=== PATIENT | female | born 1985 | race Two or more races ===

== ENCOUNTER → 2024-09-03 | Outpatient (CLI) | payer BC, SELFPAY ==
[2024-09-03 17:01] LABS: Collection Type, Urine Clean Catch
[2024-09-03 17:50] LABS: Bilirubin,Urine Negative (Negative); Blood,Urine Negative (Negative); Color,Urine Yellow (Lt Yel-Yel); Glucose, Urine Negative (Negative); Ketones,Urine Negative (Negative); Leukocyte Esterase,Urine Positive (Negative); Nitrite,Urine Negative (Negative); PH,Urine 8.5 (5.0-7.0); Protein,Urine Trace (Neg - Trace); RBC,Urine 10 /hpf (0-3); Specific Gravity,Urine 1.025 (1.001-1.035); Squamous Epithelial Cell,Urine 9 /hpf (0-5); WBC,Urine 42 /hpf (0-5)
[2024-09-03 17:53] LABS: Clarity,Urine Hazy (Clear/Hazy); Culture Indicated,Urine Yes
== END | disposition home or self-care (01) ==
LOC: SLDO 16:50
PROVIDERS: PCP Internal Medicine; Referring Provider Internal Medicine; Visit Provider Internal Medicine
DX: N39.0 Urinary tract infection, site not specified (principal)
CPT/HCPCS: 81001; 87086

== ENCOUNTER → 2024-09-09 | Outpatient (CLI) | payer BC, SELFPAY ==
[2024-09-10 09:47] LABS: BVAG Candida Negative (Negative); Bacterial Vaginosis Markers Positive (Negative); Candida glabrata Negative (Negative); Candida krusei PCR Negative (Negative); Trichomonas Negative (Negative)
== END | disposition home or self-care (01) ==
LOC: SLDO 16:49
PROVIDERS: Referring Provider Specialist; Visit Provider Specialist
DX: B37.89 Other sites of candidiasis (principal); N76.0 Acute vaginitis; A59.01 Trichomonal vulvovaginitis
CPT/HCPCS: 81514

== ENCOUNTER → 2024-11-04 | Outpatient (CLI) | payer BC, SELFPAY ==
--- NOTE | 2024-11-04 10:34 | XR_ITS ---
Examination: Complete OB ultrasound, less than 14 weeks, transabdominal Date and time of exam: November 04, 2024 10:58 AM Indications: Advanced maternal age Technique: Obstetrical ultrasound images less than 14 weeks performed via transabdominal imaging Findings: A normal shaped single intrauterine gestation is present in the uterus. pole 1.0 cm corresponds to 7 week 0 day gestational age Cardiac motion 120 bpm Adjacent subchorionic hemorrhage 18 x 15 x 16 mm Ultrasonographic survey of visible structures unremarkable. Amniotic fluid volume appears appropriate for this estimated gestational age. Right ovary 2.7 cm arterial flow 17 mm follicle Left ovary 2.0 cm arterial flow Impression: Viable intrauterine gestation 7 weeks 0 days.
[2024-11-04 13:38] LABS: Beta HCG,Quantitative 63298 mIU/mL (<5.0)
== END | disposition home or self-care (01) ==
PROVIDERS: PCP Family Medicine; Referring Provider Registered Nurse; Visit Provider Registered Nurse
DX: Z34.01 Encounter for supervision of normal first pregnancy, first trimester (principal)
CPT/HCPCS: 36415; 76801; 84702

== ENCOUNTER 2024-12-03 13:20 | Outpatient (AMB) | payer BC, SELFPAY ==
--- NOTE | 2024-12-03 13:31 | OBCLNT_ITS ---
Vital Signs 12/03/24 14:07 Height 1.6 m Height Method Stated Weight 63.049 kg Weight Measurement Method Standing Scale BMI 24.6 BP 118/79 Blood Pressure Source Automatic Cuff Blood Pressure Location Left Upper Arm Position Sitting Respiration 16 Pulse 66 Pulse Source Monitor Temp 97.8 F Temp Source Temporal Artery Scan Pulse Oximetry (%) 98 Oxygen Delivery Method Room Air Allergies/Home Meds Allergies & Medications Allergies latex Allergy (Mild, Verified 12/03/24 14:07) Rash acetaminophen (From Vicodin) Adverse Reaction (Intermediate, Verified 12/03/24 14:07) Nausea amoxicillin (From Augmentin) Adverse Reaction (Intermediate, Verified 12/03/24 14:07) Nausea clavulanic acid (From Augmentin) Adverse Reaction (Intermediate, Verified 12/03/24 14:07) Nausea hydrocodone (From Vicodin) Adverse Reaction (Intermediate, Verified 12/03/24 14:07) Nausea Intake Visit Data Collection New Patient or Established: Established Patient (seen at [facility] within 3 years) Reason for Visit:: OB Initial Do You Feel Safe at Home: Yes Authorities Contacted: N/A PCP or OBGYN visit in last 3 months: No Last menstrual period: 09/08/24 Pain Present Currently: No Pain Scale Used: [place]-Mirza/Numerical Pain scale:: 0 Smoking Status Smoking Status: Never smoker Questionnaires Covid-19 Vaccine Questionnaire Has patient been vacinated for Covid-19 Have you been vacinated for Covid-19: Yes PHQ-9 PHQ-2 Over the last 2 weeks, how often have you been bothered by any of the following problems? 1. Little interest or pleasure in doing things: not at all 2. Feeling down, depressed, or hopeless: not at all Total score: 0 PHQ-9 3. Trouble falling or staying asleep, or sleeping too much: Not at all 4. Feeling tired or having little energy: Not at all 5. Poor appetite or overeating: Not at all 6. Feeling bad about yourself - or that you are a failure or have let yourself or your family down: Not at all 7. Trouble concentrating on things, such as reading the newspaper or watching television: Not at all 8. Moving or speaking so slowly that other people could have noticed? - Or the opposite - being so fidgety or restless that you have been moving around a lot more than usual: not at all 9. Thoughts that you would be better off or of hurting yourself in some way: Not at all Total score: 0 If you checked off any problems, how difficult have these problems made it for you to do your work, take care of things at home, or get along with other people?: not difficult at all Source: Developed by Drs. Oliver Arce, Jo Ann Arriaga, Elijah Johnson and colleagues, with an educational johny from [employer]. 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 Jeffery CANDY, a CO, who has 3 kids Tobacco History Smoking Status: Never smoker Alcohol History Alcohol Intake: Former Domestic Abuse History Do You Feel Safe at Home: Yes Past Medical History Past Medical History Have you ever been diagnosed with any of the following: Neurological Problems Migraine: No Cardiology Problems Heart Murmur: No Hypercholesterolemia: No Cellulitis: Yes (NAIL L THUMB AVULSION WITH NEOSPORIN IN MAY) Hypertension: No Respiratory Problems Asthma: No Genital/Urinary Problems Renal Disease: No Reproductive Problems Breast Cancer: No Endometriosis: No (edometrial polyps) Fibroids: No Genital Herpes: No Gonorrhea: No Pelvic Inflammatory Disease: No Polycystic Ovarian Syndrome: Yes Previous Pregnancies: Yes ( x 2) Musculoskeletal Problems Arthritis: No Rheumatoid Arthritis: No Scoliosis: Yes Fractures: Yes (left foot 2nd toe) Endocrine Problems Diabetes Mellitus Type 2: No Hyperthyroidism: No Hypothyroidism: No Blood Problems Anemia: No Clotting Problems: No Psychologic Problems Depression: No Anxiety: No Depression: Yes Other Problems Hospitalization: Yes (For deliveries) Autoimmune Disease: No Cosmetic Surgery: No Blood Transfusions: No Chicken Pox: Yes Surgical History Cholecystectomy: No Additional Surgical History: Hysteroscopy D&C with removal of polyps by Dr Sharma. History of vaginal delivery x 2 in the past History of Present Illness HPI Narrative The patient is a 39-year-old -0-0-2 presents for a new OB appointment. She is single. She is present with the father of the baby. His name is Júnior. 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 He has 3 children and she has 2. Patient would like a light duty for work and a note to not be around clients. She feels tired no bleeding. She states she has to go upstairs and restart respond quickly to emergencies. OB Ultrasound Indication Indication: Size, dates, viability OB Ultrasound Ultrasound technique: transvaginal Gestational sac assessment: Presence, location, size, shape: Single live intrauterine with crown-rump length of 4.95 cm corresponding to 11 weeks 5 days. Embryo/ Assessment 1: Cardiac activity confirmation: Yes [place]-rump length (cm): 4.95 OB Initial Visit Menstrual History Menstrual reliability: definite Flow: normal Menstrual regularity: regular Monthly: Yes Age at menarche: 9 On control pills at conception: Yes Associated symptoms (LMP): Reports fatigue and bloating OB History : 3 Para: 2 Hx Total # of Abortions (Spontaneous & Elective): 0 # of Living Children: 2 Delivery History 1st : Child's name: Amy date: 02/28/16 sex: female Gestational age at delivery (weeks): 39 Delivery type: vaginal weight (lbs): 3175.147 g Delivery complications: Patient had an epidural. No complications. She delivered here w Dr Sharma History of depression before or after : No 2nd : Child's name: Hank date: 04/29/17 sex: male Gestational age at delivery (weeks): 39 Delivery type: vaginal weight (lbs): 3175.147 g Delivery complications: None. Too fast for epidural. Dr Sharma. History of depression before or after : No Infection History & Risk Evaluation History of STDs: none Genetic Screening & History Genetic Screening/Teratology Counseling - Includes patient, baby's father, or anyone in either family with: 1. Patient's age 35 years or older as of estimated date of delivery: Yes 2. Thalassemia (Sami, Georgian, Mediterranean, or Background); MCV less than 80: No 3. Neural Tube Defect (Meningomyelocele, Spina Bifida, or Anencephaly): No 4. Congenital Heart Defect: No 5. Down Syndrome: No 6. Saad-Sachs (Ashkenazi Scientology, Cajun, Citizen Of [place] Burkin[place]): No 7. Tanvir Disease (Ashkenazi Scientology): No 8. Familial Dysautonomia (Ashkenazi Scientology): No 9. Sickle Cell Disease or Trait (): No 10. Hemophilia or other blood disorders: No 11. Muscular Dystrophy: No 12. Cystic Fibrosis: No 13. Donato's Chorea: No 14. Mental Retardation/Autism: No 15. Other inherited genetic or chromosomal disorder: No 16. Maternal Metabolic Disorder (EG,TYPE 1 Diabetes, PKU): No 17. Patient or baby's father had a child with defects not listed above: No 18. Recurrent loss or a stillbirth: No Infection History 1. Live with someone with TB or exposed to TB: No 2. Rash or viral illness since last menstrual period: No 3. Hepatitis B,C: No Other (see comments) Source: [employer] Review of Systems Review of Systems Narrative Review of Systems: Patient feels tired a little nauseous. Systems Reviewed: All systems reviewed, normal except as documented Constitutional Constitutional: Reports fatigue Gastrointestinal Gastrointestinal: Reports bloating Endocrine Endocrine: Reports fatigue Exam General General Appearance: alert, in no apparent distress, comfortable, cooperative and healthy appearing Neck Neck exam: Present normal inspection, full ROM and trachea midline Chest Chest inspection: Present normal inspection and symmetric chest wall rise Resp Respiratory exam: Present normal lung sounds bilaterally Card Cardiovascular exam: Present regular rate, normal rhythm and normal heart sounds Abdominal Abdominal exam: Present soft and normal bowel sounds Psych Psychiatric exam: Present normal affect and normal mood Skin Skin exam: Present warm, dry, intact and normal color Assessment & Plan Diagnosis / Problem List (1) : Status: Acute Qualifiers: Weeks of gestation: 12 weeks Qualified Code(s): Z3A.12 - 12 weeks gestation of (2) Advanced maternal age (AMA), 40 years or greater: Status: Acute Assessment and Plan: Offered NIPT. We will authorize for this. Note given for light duty. Patient to take 81 mg of baby aspirin daily to prevent preeclampsia. Additional Plan Follow Up: 4 Weeks Office Procedures OB Clinic LOC & Office Proc's Nursing/Assessment Patient Status: Established Patient OB Clinic Nursing Assessment: Medication Reconciliation, Update PMH in EMR and Vital Signs OB Clinic Coordination of Care: Complex Care and Chronic Disease 1-5, Consent,records obtained, informed consent, Education Simp Pt/Fam, Lab and Imaging orders and Staff clarify orders Special Needs: Heart tones Established Patient Charge Established Patient Point Assignment: 130 Established Patient Point Charge: EP Level 4 (120-155) Bedside Ultrasounds US Transvaginal at bedside: Yes
[2024-12-03 14:07] VITALS: BP 118/79; PULSE 66; RESP 16; TEMP 36.6; O2SAT 98; BMI 24.6
== END 2024-12-03 14:34 | disposition home or self-care (01) ==
LOC: HODSOBC 13:20
PROVIDERS: PCP Family Medicine; Referring Provider Family Medicine; Supervising Provider Obstetrics & Gynecology; Visit Provider Obstetrics & Gynecology
DX: O09.521 Supervision of elderly multigravida, first trimester (principal); Z3A.11 11 weeks gestation of pregnancy; Z91.040 Latex allergy status; Z88.6 Allergy status to analgesic agent; Z88.1 Allergy status to other antibiotic agents; Z88.5 Allergy status to narcotic agent; Z88.0 Allergy status to penicillin
CPT/HCPCS: 76817; 99214; G0463

== ENCOUNTER → 2024-12-03 | Outpatient (CLI) | payer BC, SELFPAY ==
[2024-12-03 16:11] LABS: Collection Type, Urine Clean Catch
[2024-12-03 16:24] LABS: Basophils % (Auto) 0 % (0-2.5); Eosinophils # (Auto) 0.1 Thou/mm3 (0.0-0.5); Eosinophils % (Auto) 1 % (0-10); Hematocrit 39.9 % (36.0-46.0); Hemoglobin 13.7 g/dL (12.0-16.0); Immature Granulocytes % (Auto) 0 % (0-0); Immature Granulocytes Auto 0.03 Thou/mm3 (0.00-0.00); Lymphocytes # (Auto) 1.8 Thou/mm3 (1.0-4.8); Lymphocytes % (Auto) 18 % (10-50); Mean Corpuscular HGB Conc 34.3 g/dl (31.0-37.0); Mean Corpuscular Hemoglobin 29.8 pg (25.0-35.0); Mean Corpuscular Volume 87 fL (80-100); Monocytes % (Auto) 10 % (0-12); Neutrophils % (Auto) 71 % (37-80); Nucleated Red Blood Cell % 0 /100 WBC (0); Platelet Count 320 Thou/mm3 (140-440); RDW Standard Deviation 39.7 fL (36.4-46.3); White Blood Count 9.9 Thou/mm3 (3.6-11.0)
[2024-12-03 16:30] LABS: Bilirubin,Urine Negative (Negative); Blood,Urine Negative (Negative); Clarity,Urine Clear (Clear/Hazy); Color,Urine Colorless (Lt Yel-Yel); Culture Indicated,Urine Not Indicated; Glucose, Urine Negative (Negative); Ketones,Urine Trace (Negative); Leukocyte Esterase,Urine Negative (Negative); Nitrite,Urine Negative (Negative); PH,Urine 6.5 (5.0-7.0); Protein,Urine Negative (Neg - Trace); RBC,Urine 1 /hpf (0-3); Squamous Epithelial Cell,Urine < 1 /hpf (0-5); Urobilinogen,Urine Negative mg/dL (0.0-1.0); WBC,Urine < 1 /hpf (0-5)
[2024-12-03 16:59] LABS: Glucose Estimated Average 103 mg/dL (80-131); Hemoglobin A1C 5.2 % Hgb (4.8-6.0)
[2024-12-03 17:07] LABS: Hepatitis B Surface Antigen Non Reactive (Non React); Rubella, IgG Antibody Reactive (Immune)
[2024-12-03 17:46] LABS: HIV (1&2) Antibody Rapid Non-Reactive
== END | disposition home or self-care (01) ==
LOC: COPL 15:19
PROVIDERS: PCP Family Medicine; Referring Provider Obstetrics & Gynecology; Visit Provider Obstetrics & Gynecology
DX: Z34.90 Encounter for supervision of normal pregnancy, unspecified, unspecified trimester (principal)
CPT/HCPCS: 36415; 81001; 82950; 83036; 85025; 86703; 86762; 86850; 86900; 86901; 87340

== ENCOUNTER 2024-12-31 10:01 | Outpatient (AMB) | payer BC, SELFPAY ==
[2024-12-31 10:24] VITALS: BP 115/76; PULSE 73; RESP 18; TEMP 36.2; O2SAT 98; BMI 25.0
--- NOTE | 2024-12-31 10:24 | AMB.OBVISIT ---
Vital Signs 12/31/24 10:24 Height 1.6 m Height Method Stated Weight 64.07 kg Weight Measurement Method Standing Scale BMI 25.0 BP 115/76 Blood Pressure Source Automatic Cuff Blood Pressure Location Left Upper Arm Position Sitting Respiration 18 Pulse 73 Pulse Source Monitor Temp 97.2 F Temp Source Oral Pulse Oximetry (%) 98 Oxygen Delivery Method Room Air Allergies/Home Meds Allergies & Medications Allergies latex Allergy (Mild, Verified 12/31/24 10:25) Rash acetaminophen (From Vicodin) Adverse Reaction (Intermediate, Verified 12/31/24 10:25) Nausea amoxicillin (From Augmentin) Adverse Reaction (Intermediate, Verified 12/31/24 10:25) Nausea clavulanic acid (From Augmentin) Adverse Reaction (Intermediate, Verified 12/31/24 10:25) Nausea hydrocodone (From Vicodin) Adverse Reaction (Intermediate, Verified 12/31/24 10:25) Nausea Medication Reconciliation No Known Home Medications 12/31/24 [History Confirmed 12/31/24] Intake Visit Data Collection New Patient or Established: Established Patient (seen at [facility] within 3 years) Reason for Visit:: Return OB visit Seen by Clinical Staff ONLY (RN/MA): No Do You Feel Safe at Home: Yes Authorities Contacted: N/A PCP or OBGYN visit in last 3 months: Yes Date of Last PCP or OBGYN visit: 12/03/24 Hx Now: Yes Are you currently on any form of Control: No Pain Present Currently: No Pain Scale Used: [place]-Mirza/Numerical Pain scale:: 0 Smoking Status Smoking Status: Never smoker Questionnaires Covid-19 Vaccine Questionnaire Has patient been vacinated for Covid-19 Have you been vacinated for Covid-19: Yes PHQ-9 PHQ-2 Over the last 2 weeks, how often have you been bothered by any of the following problems? 1. Little interest or pleasure in doing things: not at all 2. Feeling down, depressed, or hopeless: not at all Total score: 0 PHQ-9 3. Trouble falling or staying asleep, or sleeping too much: Not at all 4. Feeling tired or having little energy: Not at all 5. Poor appetite or overeating: Not at all 6. Feeling bad about yourself - or that you are a failure or have let yourself or your family down: Not at all 7. Trouble concentrating on things, such as reading the newspaper or watching television: Not at all 8. Moving or speaking so slowly that other people could have noticed? - Or the opposite - being so fidgety or restless that you have been moving around a lot more than usual: not at all 9. Thoughts that you would be better off or of hurting yourself in some way: Not at all Total score: 0 If you checked off any problems, how difficult have these problems made it for you to do your work, take care of things at home, or get along with other people?: not difficult at all Source: Developed by Drs. Oliver Arce, Jo Ann Arriaga, Elijah Johnson and colleagues, with an educational johny from [employer]. 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 Tobacco History Smoking Status: Never smoker Second Hand Smoke Exposure: No Alcohol History Alcohol Intake: Former Domestic Abuse History Do You Feel Safe at Home: Yes Past Medical History Past Medical History Have you ever been diagnosed with any of the following: Neurological Problems Cerebrovascular Accident (CVA): No Brain Tumor: No Meningitis: No Seizures: No Epilepsy: No Amyotrophic Lateral Sclerosis (ALS/Carmela Gehrig's): No Cast's Palsy: No Migraine: No Head Trauma: No Cardiology Problems Heart Murmur: No Hypercholesterolemia: No Congestive Heart Failure: No Edema: No Cellulitis: Yes (NAIL L THUMB AVULSION WITH NEOSPORIN IN MAY) Hypertension: No Respiratory Problems Chronic Obstructive Pulmonary Disease (COPD): No Asthma: No Bronchitis: Yes Pneumonia: No Tuberculosis: No Pulmonary Edema: No Sleep Apnea: No Genital/Urinary Problems Renal Disease: No Reproductive Problems Breast Cancer: No Endometriosis: No (edometrial polyps) Fibroids: No Genital Herpes: No Gonorrhea: No Pelvic Inflammatory Disease: No Polycystic Ovarian Syndrome: Yes Previous Pregnancies: Yes ( x 2) Musculoskeletal Problems Arthritis: No Rheumatoid Arthritis: No Scoliosis: Yes Fractures: Yes (left foot 2nd toe) Endocrine Problems Diabetes Mellitus Type 1: No Diabetes Mellitus Type 2: No Hyperthyroidism: No Hypothyroidism: No Blood Problems Anemia: No Clotting Problems: No Psychologic Problems Depression: No Anxiety: No Depression: Yes Other Problems Hospitalization: Yes (For deliveries) Cosmetic Surgery: No Shingles: No Falls: No Blood Transfusions: No Blood Transfusion Reaction: No Anesthesia Reactions: No Chicken Pox: Yes Cancer: No Surgical History Cholecystectomy: No Pacemaker: No Care OB Visit Log OB Flowsheet Initial Weight: Not Recorded Date <del>?</del> EGA Weight Edema CTX Effacement BP Fundal ht Pres Dilation Effacement Station Visit Note Alb Glu FHR Mov 12/31/24 <del>?</del> 15w 5d 64.07 kg 115/76 Patient on light duty. Father baby at bedside. Denies bleeding cramping. Urine protein negative glucose negative 145 ELVA Calculator Estimated Delivery Date Method Current WG Current Estimate 06/19/25 Ultrasound #1 16w 2d Other Estimates 06/15/25 LMP (Certain) 16w 6d Comments: labs: B+ \antibody screen negative \rubella immune\ hepatitis B surface antigen negative \HIV negative\NIPT negative\ Expected Delivery Route/Plan Anticipate Specific Issue/Plans AMA, on baby aspirin. Normal NIPT. Will order level 2 ultrasound. Works as a [employer]. On light duty. New father the baby this . Patient has 2 children of her own he has 3 children of his own. Multiple medical allergies Notes Visit Date: 12/31/24 Last Updated by: Sara Frey (OB Clinic)MD Patient employed as a [employer]. EDC 06/18/2024. She is a 39-year-old -0-0-2. Her son Hank is 8, her daughter Snehal is 9. The father the baby is a financial aid officer and has 3 children of his own. Assessment & Plan Diagnosis / Problem List (1) Advanced maternal age (AMA), 40 years or greater: Status: Acute (2) : Status: Acute Qualifiers: Weeks of gestation: 12 weeks Qualified Code(s): Z3A.12 - 12 weeks gestation of Office Procedures OB Clinic LOC & Office Proc's Nursing/Assessment Patient Status: Established Patient OB Clinic Nursing Assessment: BP Monitoring, Medication Reconciliation, Update PMH in EMR and Vital Signs OB Clinic Coordination of Care: Consent,records obtained, informed consent, Education Simp Pt/Fam and Staff clarify orders Special Needs: Heart tones Established Patient Charge Established Patient Point Assignment: 105 Established Patient Point Charge: EP Level 3 (80-115)
== END 2024-12-31 10:44 | disposition home or self-care (01) ==
LOC: HODSOBC 10:01
PROVIDERS: PCP Family Medicine; Referring Provider Family Medicine; Supervising Provider Obstetrics & Gynecology; Visit Provider Obstetrics & Gynecology
DX: O09.522 Supervision of elderly multigravida, second trimester (principal); Z3A.15 15 weeks gestation of pregnancy; Z91.040 Latex allergy status; Z88.6 Allergy status to analgesic agent; Z88.5 Allergy status to narcotic agent; Z88.8 Allergy status to other drugs, medicaments and biological substances
CPT/HCPCS: 99213; G0463

== ENCOUNTER 2025-01-13 12:50 | Emergency (ER) | payer BC, SELFPAY ==
[2025-01-13 13:02] VITALS: BP 107/70; PULSE 85; RESP 18; TEMP 36.8; O2SAT 97; BMI 24.7
--- NOTE | 2025-01-13 13:07 | XR_ITS ---
Examination: Complete OB ultrasound greater than 14 weeks Date and time of exam: January 13, 2025 1409 hours INDICATIONS: Pelvic pain and vaginal bleeding beginning today Findings: Viable intrauterine single fetus with single amniotic sac presentation variable Cardiac motion 153 BPM Placenta anterior maternal left grade 1 Amniotic fluid adequate Cervix 3.5 cm Right ovary 2.3 cm arterial flow Left ovary 2.8 cm arterial flow Placenta 17 mm from the internal os. Composite estimated gestational age based on BPD, head circumference, abdominal circumference, femur length is 17 weeks 2 days Estimated weight 175 g. Survey of intracranial anatomy, spinal anatomy, abdominal anatomy, four-chamber heart performed with no abnormalities identified. Impression: Viable intrauterine gestation variable presentation.
--- NOTE | 2025-01-13 13:08 | PD.EDRME ---
Rapid Medical Screening Exam RME Arrival date/time: 01/13/25 12:50 39-year-old female presents to the emergency department for complaint of pelvic pain and abdominal pain Chief Complaint: Abdominal Pain Vital signs: Vital Signs Temperature 98.3 F 01/13/25 13:02 Pulse Rate 85 01/13/25 13:02 Respiratory Rate 18 01/13/25 13:02 Blood Pressure 107/70 01/13/25 13:02 Pulse Oximetry (%) 97 01/13/25 13:02 Oxygen Delivery Method Room Air 01/13/25 13:02
[2025-01-13 13:33] LABS: Basophils % (Auto) 0 % (0-2.5); Eosinophils # (Auto) 0.1 Thou/mm3 (0.0-0.5); Eosinophils % (Auto) 1 % (0-10); Hematocrit 37.7 % (36.0-46.0); Hemoglobin 13.2 g/dL (12.0-16.0); Immature Granulocytes % (Auto) 0 % (0-0); Immature Granulocytes Auto 0.04 Thou/mm3 (0.00-0.00); Lymphocytes # (Auto) 1.8 Thou/mm3 (1.0-4.8); Lymphocytes % (Auto) 19 % (10-50); Mean Corpuscular Hemoglobin 30.6 pg (25.0-35.0); Mean Corpuscular Volume 88 fL (80-100); Monocytes % (Auto) 10 % (0-12); Neutrophils # (Auto) 6.5 Thou/mm3 (1.8-7.7); Neutrophils % (Auto) 69 % (37-80); Nucleated Red Blood Cell % 0 /100 WBC (0); Platelet Count 311 Thou/mm3 (140-440); RDW Standard Deviation 39.8 fL (36.4-46.3); Red Blood Count 4.31 Miln/mm3 (4.00-5.20); White Blood Count 9.4 Thou/mm3 (3.6-11.0)
[2025-01-13 14:07] LABS: Collection Type, Urine Clean Catch
[2025-01-13 14:24] LABS: Bacteria,Urine Rare; Bilirubin,Urine Negative (Negative); Blood,Urine Trace (Negative); Clarity,Urine Turbid (Clear/Hazy); Color,Urine Yellow (Lt Yel-Yel); Glucose, Urine Negative (Negative); Ketones,Urine Negative (Negative); Leukocyte Esterase,Urine Positive (Negative); Nitrite,Urine Negative (Negative); PH,Urine 6.5 (5.0-7.0); Protein,Urine Negative (Neg - Trace); RBC,Urine 2 /hpf (0-3); Specific Gravity,Urine 1.019 (1.001-1.035); Squamous Epithelial Cell,Urine 8 /hpf (0-5); Urobilinogen,Urine Negative mg/dL (0.0-1.0); WBC,Urine 2 /hpf (0-5)
[2025-01-13 14:43] LABS: Alanine Aminotransferase 11 U/L (10-49); Albumin, Serum 4.1 gm/dL (3.5-5.0); Albumin/Globulin Ratio 1.5 (1.2-2.2); Alkaline Phosphatase 81 U/L (46-116); Anion Gap 9 (7-16); Aspartate Amino Transferase 15 U/L (0-34); BUN/Creatinine Ratio 18 Ratio (12-20); Beta HCG,Quantitative 58308 mIU/mL (<5.0); Bilirubin,Total 0.9 mg/dL (0.3-1.2); Blood Urea Nitrogen 7 mg/dL (9-23); Carbon Dioxide 23.7 mMol/L (20.0-31.0); Chloride 104 mMol/L (98-107); Creatinine (Component) 0.4 mg/dL (0.6-1.3); Estimated Creatinine Clearance 167.8 mL/min (>60); Globulin 2.8 gm/dL (2.3-3.5); Glucose 106 mg/dL (74-106); Osmolality,Calculated 271 (275-295); Potassium 3.8 mMol/L (3.4-5.1); Sodium 137 mMol/L (136-145); Total Protein 6.9 gm/dL (5.7-8.2); eGFR > 60 See Note
--- NOTE | 2025-01-13 15:52 | EDNOTE_ITS ---
ED Abdominal Pain RME/HPI General Chief Complaint: Abdominal Pain Stated complaint: PELVIC PRESSURE, 17WKS Time seen by provider: 01/13/25 13:27 Arrival date/time: 01/13/25 12:50 This is a case of a 39-year-old [id number] female in the emergency room due to lower abdominal pain patient is 17 weeks with regular checkup patient denies any nausea vomiting constipation diarrhea vaginal bleeding vaginal spotting or vaginal discharge patient states that the pain started last night LMP 08/2024 Source: patient and family Limitations: no limitations RME / HPI RME / HPI narrative: 01/13/25 12:50 39-year-old female presents to the emergency department for complaint of pelvic pain and abdominal pain MD complaint: abdominal pain Location: suprapubic Severity: mild Quality: cramping Related Data Previous Rx's ?Medication ?Instructions ?Recorded nitrofurantoin 100 mg PO BID 10 days #20 ca ps 01/13/25 monohydrate/macrocrystals 100 mg capsule (Macrobid) Allergies Allergy/AdvReac Type Severity Reaction Status Date / Time latex Allergy Mild Rash Verified 01/13/25 12:51 acetaminophen (From Vicodin) AdvReac Intermediate Nausea Verified 01/13/25 12:51 amoxicillin (From Augmentin) AdvReac Intermediate Nausea Verified 01/13/25 12:51 clavulanic acid (From AdvReac Intermediate Nausea Verified 01/13/25 12:51 Augmentin) hydrocodone (From Vicodin) AdvReac Intermediate Nausea Verified 01/13/25 12:51 Review of Systems Constitutional Constitutional: Reports system reviewed and no additional complaints, except as documented, Denies chills, Denies fatigue and Denies fever(s) Cardiovascular Cardiovascular: Reports system reviewed and no additional complaints, except as documented, Reports as per HPI, Denies chest pain, Denies dyspnea and Denies dyspnea on exertion Respiratory Respiratory: Reports system reviewed and no additional complaints, except as documented, Reports as per HPI, Denies dyspnea and Denies dyspnea on exertion Gastrointestinal Gastrointestinal: Reports system reviewed and no additional complaints, except as documented, Reports as per HPI, Reports abdominal pain, Denies belching, Denies bloating, Denies change in bowel habits, Denies change in stool character, Denies excessive flatus, Denies heartburn, Denies loose stools, Denies melena, Denies nausea, Denies tenesmus and Denies vomiting Genitourinary Genitourinary: Reports system reviewed and no additional complaints, except as documented, Reports as per HPI, Denies dysuria, Denies urinary frequency, Denies vaginal discharge, Denies vaginal dryness, Denies vaginal odor and Denies vaginal pruritus Neurologic Neurologic: Reports system reviewed and no additional complaints, except as documented and Reports as per HPI Endocrine Endocrine: Denies fatigue Past Medical History Past Medical History NEUROLOGIC: Negative Neurological Disorders, Cerebrovascular Accident, Brain Tumor, Meningitis, Seizures, Epilepsy, Amyotrophic Lateral Sclerosis (ALS/Carmela Gehrig's), Cast's Palsy, Migraine or Head Trauma CARDIAC: Positive Cellulitis (NAIL L THUMB AVULSION WITH NEOSPORIN IN MAY); Negative Cardiac Disorders, Heart Murmur, Hypercholesterolemia, Congestive Heart Failure, Edema or Hypertension RESPIRATORY: Positive Bronchitis; Negative Chronic Obstructive Pulmonary Disease (COPD), Asthma, Pneumonia, Tuberculosis, Pulmonary Edema or Sleep Apnea GASTROINTESTINAL: Negative Gastrointestinal Disorders GENITOURINARY: Negative Genitourinary Disorders or Renal Disease REPRODUCTIVE: Positive Hx Polycystic Ovarian Syndrome and Previous Pregnancies ( x 2); Negative Breast Cancer, Endometriosis (edometrial polyps), Fibroids, Genital Herpes, Gonorrhea or Pelvic Inflammatory Disease MUSCULOSKELETAL: Positive Musculoskeletal Disorders, Scoliosis and Fractures (left foot 2nd toe); Negative Arthritis or Rheumatoid Arthritis ENT: Negative Head Trauma ENDOCRINE: Negative Endocrine Disorders, Diabetes Mellitus Type 1, Diabetes Mellitus Type 2, Hyperthyroidism or Hypothyroidism HEMATOLOGIC: Negative Blood Disorders, Anemia or Clotting Problems PSYCHO/SOCIAL: Positive Depression; Negative Depression or Anxiety OTHER HISTORY: Positive Hospitalization (For deliveries) and Chicken Pox; Negative Autoimmune Disease, Cosmetic Surgery, Shingles, Falls, Blood Transfusions, Blood Transfusion Reaction, Anesthesia Reactions, Cancer or Breast Cancer Family History FAMILY HISTORY: Positive Family Cardiac Disorders (mother father HTN), Family Gastrointestinal Problems (FATHER GERD) and Family Surgery (FATHER KNEE, BROTHER APPENDIX); Negative Family Respiratory Disorders, Family Cancer or Family Anesthesia Reaction Surgical History SURGICAL: Negative Pacemaker or Ear Surgery Social History SMOKING STATUS: Never smoker SECOND HAND EXPOSURE: No ED Exam General Limitations: Present no limitations General appearance: Present alert and in no apparent distress Head Head exam: Present atraumatic and normocephalic Eye Eye exam: Present normal appearance, PERRL and EOMI ENT ENT exam: Present normal exam, normal oropharynx and mucous membranes moist Neck Neck exam: Present normal inspection, full ROM and trachea midline Chest Chest inspection: Present normal inspection and symmetric chest wall rise Respiratory Respiratory exam: Present normal lung sounds bilaterally Cardiovascular Cardiovascular exam: Present regular rate, normal rhythm and normal heart sounds Abdominal Exam Abdominal exam: Present soft, tenderness, normal bowel sounds and other ( uterus); Absent diminished bowel sounds, psoas sign, obturator sign, James's sign or tenderness at McBurney's Point Abdominal tenderness: Present suprapubic Extremities Exam Extremities exam: Present normal inspection and full ROM Back Exam Back exam: Present normal inspection and full ROM Neurological Exam Neurological exam: Present alert, oriented X3 and CN II-XII intact Psychiatric Psychiatric exam: Present normal affect and normal mood Skin Skin exam: Present warm, dry, intact and normal color Course Quality Measures none Orders Category Date Time Status US OB >= 14 weeks Fetus Stat Exams 01/13/25 13:07 Completed ABO/RH Type Stat Lab 01/13/25 13:11 Completed Beta HCG,Quantitative Stat Lab 01/13/25 13:11 Completed CBC Stat Lab 01/13/25 13:11 Completed Comprehensive Metabolic Panel Stat Lab 01/13/25 13:11 Completed UA [Urinalysis] Stat Lab 01/13/25 13:49 Completed Urine Culture Stat Lab 01/13/25 13:49 Received Vital Signs Vital signs: Vital Signs Temperature 98.3 F 01/13/25 13:02 Pulse Rate 85 01/13/25 13:02 Respiratory Rate 18 01/13/25 13:02 Blood Pressure 107/70 01/13/25 13:02 Pulse Oximetry (%) 97 01/13/25 13:02 Oxygen Delivery Method Room Air 01/13/25 13:02 Oxygen saturation 97% in the room WNL Abdominal Pain MDM MDM Narrative MDM Narrative:: This is a case of a 39-year-old [id number] female in the emergency room due to lower abdominal pain patient is 17 weeks with regular checkup patient denies any nausea vomiting constipation diarrhea vaginal bleeding vaginal spotting or vaginal discharge patient states that the pain started last night LMP 08/2024 Physicial exam showed normal vital signs patient is not tacycardic not tacypneic blood pressure stable afebrile not hypoxic No signs and symptoms of sepsis no signs and symptoms of dehydration patient has no vaginal bleeding no vaginal spotting physical examination is benign nonsurgical normoactive bowel sounds mild tenderness on the suprapubic area no CVA tenderness no guarding no rebound no rigidity test showed CBC showed no leukocytosis no anemia CMP showed kidney and liver function is normal no electrolyte imbalance patient pelvic ultrasound showed normal 17 weeks with heart rate 153 beta-hCG [id number] patient urinalysis showed positive nitrite and positive WBC BC suggestive of urinary tract infection based on my physical exam patient symtoms suggestive of urinary tract infection abdominal pain in treatement cephalexin increase water intake patient was advised to follow-up with OB/GYNet in 2 days for reevaluation penthienate checkup she was advised for any vaginal bleeding vaginal discharge fever chills nausea vomiting she needs to return the emergency room immediately or call 911 patient was disharged with comforatble conditionwith stable condition and pain fee. Walking stable Patient verbalized no further complain with the proposed management plan including the need to follow up with his/her primary care physician and and any specialist fif applicable. Discussed patient for any urgent condition or worsening sx He she needed to go to Emergency room of call 911 Patient is acknowledge the responsibility to follow up as instructed and to monitor his/her symptoms For any persistnce of the symtoms for more than 3-5 days retrun precaution advised Discussed the result of thetest and was given printed dsicahrge instruction Patient data External records reviewed:: [facility] previous records Clinical information provided by:: patient Social determinants that could affect healthcare access:: none Patient has the following chronic illnesses:: None How is presenting disease/condition affected by chronic disease/condition?: no chronic disease Evaluation data The following diagnostics were reviewed and interpreted by me:: lab results and radiology exam(s) Lab and/or radiology exams considered but not ordered:: Reviewed Interpretation Summary: Normal Medications / Prescriptions Medications or Prescriptions considered but not ordered:: Given Medication administrations:: Given Consultations Consultation(s) initiated? (list below): No Diagnosis Differential diagnosis abdominal pain: abdominal pain and other (Threatened urinary tract infection) Most likely diagnosis given after review of the tests above:: Urinary tract infection culture and Admission Indicated Admission indicated?: not indicated Admission Request Was there a request for admission?: No Admission Attestation Admission request attestation: Indicated Disposition Plan Disposition Plan: Discharge Discharge Attestation Discharge Attestation: The patient and all family members were given an opportunity to ask questions and understood the discharge instructions. Discharge instructions specifically effects, indications for sooner follow up or return to the emergency department, and the expected course of current diagnosis. Patient condition: Stable Discharge Plan Plan Patient Disposition: HOME (Self Care) Patient condition on transfer: Stable Prescriptions/Referrals Prescriptions/Med Rec: New nitrofurantoin monohyd/m-cryst [Macrobid] 100 mg capsule 100 mg PO BID 10 Days Qty: 20 0RF Rx Instructions: must administer with a meal/food Referrals: Juan Pablo Phillips MD [Primary Care Provider] - In 1 week Problem List Clinical Impression: Abdominal pain during , Urinary tract infection Patient/Caregiver Discharge Instructions Diet Instructions: increase water intake Education Materials: Abdominal Pain, Urinary Tract Infections in Women Additional Instructions: Please important to see your OB cotton ginner in 2 days for further evaluation and treatment of urinary tract infection in and for checkup for any worsening or persistent symptoms within 2 days return to the ER for further evaluation and treatment for any vaginal bleeding vaginal discharge fever chills nausea vomiting return to the ER or call 911 Print Language: Singaporean Stand Alone Forms: Work/School Release JERZY/SHAZIA Supervising Physician HANSEL Supervising Physician: dr mendez
[2025-01-13 16:12] VITALS: BP 106/75; PULSE 90; RESP 18; TEMP 36.6; O2SAT 99
== END 2025-01-13 16:17 | disposition home or self-care (01) ==
PROVIDERS: Nurse Practitioner Primary Care; Emergency Provider Emergency Medicine; PCP Family Medicine
DX: R10.2 Pelvic and perineal pain (principal); O23.42 Unspecified infection of urinary tract in pregnancy, second trimester; N39.0 Urinary tract infection, site not specified; Z3A.17 17 weeks gestation of pregnancy
CPT/HCPCS: 36415; 76805; 80053; 81001; 84702; 85025; 86900; 86901; 87086; 99284

== ENCOUNTER 2025-01-28 15:29 | Outpatient (AMB) | payer BC, SELFPAY ==
[2025-01-28 16:04] VITALS: BP 109/68; PULSE 91; RESP 18; TEMP 36.8; O2SAT 98; BMI 26.6
--- NOTE | 2025-01-28 16:04 | OBCLNT_ITS ---
Vital Signs 01/28/25 16:04 Height 1.6 m Height Method Stated Weight 68.152 kg Weight Measurement Method Standing Scale BMI 26.6 BP 109/68 Blood Pressure Source Automatic Cuff Blood Pressure Location Right Upper Arm Position Sitting Respiration 18 Pulse 91 Pulse Source Monitor Temp 98.3 F Temp Source Oral Pulse Oximetry (%) 98 Oxygen Delivery Method Room Air Allergies/Home Meds Allergies & Medications Allergies latex Allergy (Mild, Verified 01/28/25 16:05) Rash acetaminophen (From Vicodin) Adverse Reaction (Intermediate, Verified 01/28/25 16:05) Nausea amoxicillin (From Augmentin) Adverse Reaction (Intermediate, Verified 01/28/25 16:05) Nausea clavulanic acid (From Augmentin) Adverse Reaction (Intermediate, Verified 01/28/25 16:05) Nausea hydrocodone (From Vicodin) Adverse Reaction (Intermediate, Verified 01/28/25 16:05) Nausea Medication Reconciliation No Known Home Medications 01/28/25 [History Confirmed 01/28/25] Intake Visit Data Collection New Patient or Established: Established Patient (seen at [facility] within 3 years) Reason for Visit:: CARE Seen by Clinical Staff ONLY (RN/MA): No Mica Sizer Required: No Do You Feel Safe at Home: Yes Authorities Contacted: N/A PCP or OBGYN visit in last 3 months: Yes Hx Now: Yes Are you currently on any form of Control: No Pain Present Currently: No Pain Scale Used: [place]/Numerical Pain scale:: 0 Smoking Status Smoking Status: Never smoker Questionnaires Covid-19 Vaccine Questionnaire Has patient been vacinated for Covid-19 Have you been vacinated for Covid-19: Yes PHQ-9 PHQ-2 Over the last 2 weeks, how often have you been bothered by any of the following problems? 1. Little interest or pleasure in doing things: not at all 2. Feeling down, depressed, or hopeless: not at all Total score: 0 PHQ-9 3. Trouble falling or staying asleep, or sleeping too much: Not at all 4. Feeling tired or having little energy: Not at all 5. Poor appetite or overeating: Not at all 6. Feeling bad about yourself - or that you are a failure or have let yourself or your family down: Not at all 7. Trouble concentrating on things, such as reading the newspaper or watching television: Not at all 8. Moving or speaking so slowly that other people could have noticed? - Or the opposite - being so fidgety or restless that you have been moving around a lot more than usual: not at all 9. Thoughts that you would be better off or of hurting yourself in some way: Not at all Total score: 0 Source: Developed by Drs. Oliver Arce, Jo Ann Arriaga, Elijah Johnson and colleagues, with an educational johny from [employer]. Depression screen completed yes Social History Living Situation History Marital Status: Single Lives With: Family Housing: House Housing Other:: Works as a [employer], 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 This is a new father of the baby. He has 3 children from another relationship. Care OB Visit Log OB Flowsheet Initial Weight: Not Recorded Date -?-?-?-?-?-?-?-?-?-?-?-?- EGA Weight BP Alb Glu CTX Pres Fundal ht FHR Mov Dilation Station Effacement Hx Notes Visit Note 12/31/24 -?-?-?-?-?-?-?-?-?-?-?-?- 15w 5d 64.07 kg 115/76 145 Patient on light duty. Father baby at bedside. Denies bleeding cramping. Urine protein negative glucose negative 01/28/25 -?-?-?-?-?-?-?-?-?-?-?-?- 19w 5d 68.152 kg 109/68 20 147 142 active Positive movement no bleeding. Patient was in the ER wrist recently about 2 weeks ago with some spotting. They suspected she had a UTI and sent her home on an antibiotic. Her urine culture was negative. ELVA Calculator Estimated Delivery Date Method Current WG Current Estimate 06/19/25 Ultrasound #1 19w 5d Other Estimates 06/15/25 LMP (Certain) 20w 2d Comments: LMP 09/08/2024 care labs: B positive /antibody negative/ rubella immune /hepatitis B surface antigen negative/ HIV negative /NIPT 46 XY Missing RPR\GC\chlamydia Expected Delivery Route/Plan Anticipate Specific Issue/Plans AMA, on baby aspirin. Normal NIPT. Will order level 2 ultrasound. 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 New father the baby this . Patient has 2 children of her own he has 3 children of his own. Multiple medical allergies Notes Visit Date: 01/28/25 Last Updated by: Sara Frey (OB Clinic)MD Patient was in the ER 2 weeks ago. Some spotting. They diagnosed her with a bladder infection and she is finishing her antibiotics. Of note her urine culture was negative. She reports some pain in her abdomen. 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 Visit Date: 12/31/24 Last Updated by: Sara Frey (OB Clinic)MD Patient employed as a [employer]. EDC 06/18/2024. She is a 39-year-old -0-0-2. Her son Hank is 8, her daughter Snehal is 9. The father the baby is a biological technical officer and has 3 children of his own. Office Procedures OB Clinic LOC & Office Proc's Nursing/Assessment Patient Status: Established Patient OB Clinic Nursing Assessment: Medication Reconciliation, Update PMH in EMR and Vital Signs OB Clinic Coordination of Care: Complex Care and Chronic Disease 1-5, Consent,records obtained, informed consent, Education Simp Pt/Fam, Lab and Imaging orders, Results/Orders obtained and Staff clarify orders Special Needs: Heart tones Established Patient Charge Established Patient Point Assignment: 135 Established Patient Point Charge: EP Level 4 (120-155) Assessment & Plan Diagnosis / Problem List (1) Advanced maternal age (AMA), 40 years or greater: Status: Acute Assessment and Plan: On baby aspirin. Level 2 ultrasound ordered. NIPT normal 46 XY (2) : Status: Acute Qualifiers: Weeks of gestation: 19 weeks Qualified Code(s): Z3A.19 - 19 weeks gestation of
== END 2025-01-28 16:40 | disposition home or self-care (01) ==
LOC: HODSOBC 15:29
PROVIDERS: PCP Family Medicine; Referring Provider Family Medicine; Supervising Provider Obstetrics & Gynecology; Visit Provider Obstetrics & Gynecology
DX: O09.522 Supervision of elderly multigravida, second trimester (principal); Z3A.19 19 weeks gestation of pregnancy; Z91.040 Latex allergy status; Z88.6 Allergy status to analgesic agent; Z88.1 Allergy status to other antibiotic agents; Z88.5 Allergy status to narcotic agent
CPT/HCPCS: 99214; G0463

== ENCOUNTER 2025-02-06 15:16 | Outpatient (AMB) | payer BC, SELFPAY ==
[2025-02-06 15:45] VITALS: BP 120/78; PULSE 83; RESP 17; TEMP 36.7; O2SAT 98; BMI 25.7
--- NOTE | 2025-02-06 15:45 | AMB.OBVISIT ---
Vital Signs 02/06/25 15:45 Height 1.63 m Height Method Stated Weight 68.096 kg Weight Measurement Method Standing Scale BMI 25.7 BP 120/78 Blood Pressure Source Automatic Cuff Blood Pressure Location Right Upper Arm Position Sitting Respiration 17 Pulse 83 Pulse Source Monitor Temp 98.0 F Temp Source Temporal Artery Scan Pulse Oximetry (%) 98 Oxygen Delivery Method Room Air Allergies/Home Meds Allergies & Medications Allergies latex Allergy (Mild, Verified 02/06/25 15:46) Rash acetaminophen (From Vicodin) Adverse Reaction (Intermediate, Verified 02/06/25 15:46) Nausea amoxicillin (From Augmentin) Adverse Reaction (Intermediate, Verified 02/06/25 15:46) Nausea clavulanic acid (From Augmentin) Adverse Reaction (Intermediate, Verified 02/06/25 15:46) Nausea hydrocodone (From Vicodin) Adverse Reaction (Intermediate, Verified 02/06/25 15:46) Nausea Medication Reconciliation methylprednisolone 4 mg tablets in a dose pack (Medrol (Davion)) See Rx Instructions PO PER PKG DIR #21 tabs 02/07/25 [Rx] Intake Visit Data Collection New Patient or Established: Established Patient (seen at [facility] within 3 years) Reason for Visit:: OBC-RASH Seen by Clinical Staff ONLY (RN/MA): No Planning Division Superintendent Required: No Do You Feel Safe at Home: Yes Authorities Contacted: N/A PCP or OBGYN visit in last 3 months: Yes Date of Last PCP or OBGYN visit: 01/28/25 Hx Now: Yes Are you currently on any form of Control: No Pain Present Currently: No Pain Scale Used: [place]-Mirza/Numerical Pain scale:: 0 Smoking Status Smoking Status: Never smoker Questionnaires Covid-19 Vaccine Questionnaire Has patient been vacinated for Covid-19 Have you been vacinated for Covid-19: No PHQ-9 PHQ-2 Over the last 2 weeks, how often have you been bothered by any of the following problems? 1. Little interest or pleasure in doing things: not at all 2. Feeling down, depressed, or hopeless: not at all Total score: 0 PHQ-9 3. Trouble falling or staying asleep, or sleeping too much: Not at all 4. Feeling tired or having little energy: Not at all 5. Poor appetite or overeating: Not at all 6. Feeling bad about yourself - or that you are a failure or have let yourself or your family down: Not at all 7. Trouble concentrating on things, such as reading the newspaper or watching television: Not at all 8. Moving or speaking so slowly that other people could have noticed? - Or the opposite - being so fidgety or restless that you have been moving around a lot more than usual: not at all 9. Thoughts that you would be better off or of hurting yourself in some way: Not at all Total score: 0 If you checked off any problems, how difficult have these problems made it for you to do your work, take care of things at home, or get along with other people?: not difficult at all Source: Developed by Drs. Oliver Arce, Jo Ann Arriaga, Elijah Johnson and colleagues, with an educational johny from [employer]. Depression screen completed yes Social History Living Situation History Marital Status: Life Partner Lives With: Family Housing: House Housing Other:: Works as a [employer], 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 I just saw her a week ago. She presents with her spouse. Care OB Visit Log OB Flowsheet Initial Weight: Not Recorded Date <del>?</del> EGA Weight BP Alb Glu CTX Pres Fundal ht FHR Mov Dilation Station Effacement Hx Notes Visit Note 12/31/24 <del>?</del> 15w 5d 64.07 kg 115/76 145 Patient on light duty. Father baby at bedside. Denies bleeding cramping. Urine protein negative glucose negative 01/28/25 <del>?</del> 19w 5d 68.152 kg 109/68 20 147 142 active Positive movement no bleeding. Patient was in the ER wrist recently about 2 weeks ago with some spotting. They suspected she had a UTI and sent her home on an antibiotic. Her urine culture was negative. 02/06/25 <del>?</del> 21w 0d 68.096 kg 120/78 21 134 active +FM, No VB or LOF. + rash that comes and goes. Extremely itchy ELVA Calculator Estimated Delivery Date Method Current WG Current Estimate 06/19/25 Ultrasound #1 21w 1d Other Estimates 06/15/25 LMP (Certain) 21w 5d Comments: x 2 8 and 9 years ago NEW FOB PNC : B+/Ab neg/ RI/ HepBsag-/HIV-/NIPT 46 XY Pending Level II us Dr Matthew Other labs drawn at [facility] not done as ordered Expected Delivery Route/Plan Anticipate Specific Issue/Plans AMA, on baby aspirin. Normal NIPT. Will order level 2 ultrasound. Works as a [employer]. On light duty. New father the baby this . Patient has 2 children of her own he has 3 children of his own. Multiple medical allergies Notes Visit Date: 02/06/25 Last Updated by: Sara Frey (OB Clinic)MD No signs of PUPPS or a significant rash. Benadryl. Zyrtec. Consider a medrol dose pack. Check LFTS and Bile acids. Discussed cholestasis. Pt extremely anxious Visit Date: 01/28/25 Last Updated by: Sara Frey (OB Clinic)MD Patient was in the ER 2 weeks ago. Some spotting. They diagnosed her with a bladder infection and she is finishing her antibiotics. Of note her urine culture was negative. She reports some pain in her abdomen. 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 Visit Date: 12/31/24 Last Updated by: Sara Frey (OB Clinic)MD Patient employed as a [employer]. EDC 06/18/2024. She is a 39-year-old -0-0-2. Her son Hank is 8, her daughter Snehal is 9. The father the baby is a [employer] police officer and has 3 children of his own. Office Procedures OB Clinic LOC & Office Proc's Nursing/Assessment Patient Status: Established Patient OB Clinic Nursing Assessment: Medication Reconciliation, Update PMH in EMR and Vital Signs OB Clinic Coordination of Care: Complex Care and Chronic Disease 1-5, Consent,records obtained, informed consent, Education Simp Pt/Fam and Staff clarify orders Special Needs: Heart tones Established Patient Charge Established Patient Point Assignment: 115 Established Patient Point Charge: EP Level 3 (80-115) Assessment & Plan Diagnosis / Problem List (1) Advanced maternal age (AMA), 40 years or greater: Status: Acute Assessment and Plan: Normal NIPT waiting on level 2 ultrasound (2) : Status: Acute Qualifiers: Weeks of gestation: 20 weeks Qualified Code(s): Z3A.20 - 20 weeks gestation of Assessment and Plan: Check bile acids and LFTs (3) Cholestasis during in second trimester: Status: Acute Plan: Check bile acids and LFTs
== END 2025-02-06 16:04 | disposition home or self-care (01) ==
LOC: HODSOBC 15:16
PROVIDERS: PCP Family Medicine; Referring Provider Family Medicine; Supervising Provider Obstetrics & Gynecology; Visit Provider Obstetrics & Gynecology
DX: O09.522 Supervision of elderly multigravida, second trimester (principal); O09.892 Supervision of other high risk pregnancies, second trimester; O26.642 Intrahepatic cholestasis of pregnancy, second trimester; Z3A.21 21 weeks gestation of pregnancy; Z91.040 Latex allergy status; Z88.6 Allergy status to analgesic agent; Z88.5 Allergy status to narcotic agent; Z88.0 Allergy status to penicillin; Z88.8 Allergy status to other drugs, medicaments and biological substances
CPT/HCPCS: 99213; G0463

== ENCOUNTER → 2025-02-06 | Outpatient (CLI) | payer BC, SELFPAY ==
[2025-02-06 17:49] LABS: Alanine Aminotransferase 12 U/L (10-49); Albumin, Serum 3.9 gm/dL (3.5-5.0); Albumin/Globulin Ratio 1.6 (1.2-2.2); Alkaline Phosphatase 77 U/L (46-116); Anion Gap 7 (7-16); Aspartate Amino Transferase 18 U/L (0-34); BUN/Creatinine Ratio 12 Ratio (12-20); Bilirubin,Total 0.7 mg/dL (0.3-1.2); Blood Urea Nitrogen 6 mg/dL (9-23); Calcium 8.9 mg/dL (8.3-10.6); Carbon Dioxide 26.7 mMol/L (20.0-31.0); Chloride 105 mMol/L (98-107); Creatinine (Component) 0.5 mg/dL (0.6-1.3); Globulin 2.5 gm/dL (2.3-3.5); Glucose 90 mg/dL (74-106); Osmolality,Calculated 275 (275-295); Potassium 3.8 mMol/L (3.4-5.1); Sodium 139 mMol/L (136-145); Total Protein 6.4 gm/dL (5.7-8.2); eGFR > 60 See Note
[2025-02-13 15:35] LABS: Chenodeoxycholic Acid* <0.5 umol/L (< OR = 3.9); Cholic Acid* <0.5 umol/L (< OR = 2.8); Deoxycholic Acid* 0.6 umol/L (< OR = 2.3)
[2025-02-16 06:53] LABS: Total Bile Acids <1.5 umol/L (< OR = 8.3)
== END | disposition home or self-care (01) ==
LOC: COPL 16:18
PROVIDERS: PCP Family Medicine; Referring Provider Obstetrics & Gynecology; Visit Provider Obstetrics & Gynecology
DX: O26.642 Intrahepatic cholestasis of pregnancy, second trimester (principal)
CPT/HCPCS: 36415; 80053; 83789

== ENCOUNTER 2025-03-19 15:37 | Outpatient (AMB) | payer BC, SELFPAY ==
[2025-03-19 15:43] VITALS: BP 112/71; PULSE 98; RESP 17; TEMP 36.8; O2SAT 97; BMI 26.8
--- NOTE | 2025-03-19 15:43 | OBCLNT_ITS ---
Vital Signs 03/19/25 15:43 Height 1.63 m Height Method Measured Weight 71.271 kg Weight Measurement Method Standing Scale BMI 26.8 BP 112/71 Blood Pressure Source Automatic Cuff Blood Pressure Location Right Upper Arm Position Sitting Respiration 17 Pulse 98 Pulse Source Monitor Temp 98.2 F Temp Source Temporal Artery Scan Pulse Oximetry (%) 97 Oxygen Delivery Method Room Air Allergies/Home Meds Allergies & Medications Allergies latex Allergy (Mild, Verified 03/19/25 15:44) Rash acetaminophen (From Vicodin) Adverse Reaction (Intermediate, Verified 03/19/25 15:44) Nausea amoxicillin (From Augmentin) Adverse Reaction (Intermediate, Verified 03/19/25 15:44) Nausea clavulanic acid (From Augmentin) Adverse Reaction (Intermediate, Verified 03/19/25 15:44) Nausea hydrocodone (From Vicodin) Adverse Reaction (Intermediate, Verified 03/19/25 15:44) Nausea Medication Reconciliation methylprednisolone 4 mg tablets in a dose pack (Medrol (Davion)) See Rx Instructions PO PER PKG DIR #21 tabs 02/07/25 [Rx Confirmed 03/19/25] Intake Visit Data Collection New Patient or Established: Established Patient (seen at [facility] within 3 years) Reason for Visit:: OBC Consent obtained for Telemed Visit: No Seen by Clinical Staff ONLY (RN/MA): No Regional Commercial Sales Manager Required: No Do You Feel Safe at Home: Yes Authorities Contacted: N/A PCP or OBGYN visit in last 3 months: Yes Date of Last PCP or OBGYN visit: 02/06/25 Hx Now: Yes Are you currently on any form of Control: No Pain Present Currently: No Pain Scale Used: [place]-Mirza/Numerical Pain scale:: 0 Smoking Status Smoking Status: Never smoker Questionnaires Covid-19 Vaccine Questionnaire Has patient been vacinated for Covid-19 Have you been vacinated for Covid-19: Yes PHQ-9 PHQ-2 Over the last 2 weeks, how often have you been bothered by any of the following problems? 1. Little interest or pleasure in doing things: not at all PHQ-9 8. Moving or speaking so slowly that other people could have noticed? - Or the opposite - being so fidgety or restless that you have been moving around a lot more than usual: not at all Source: Developed by Drs. Oliver L. YazminJo Ann stewart, Elijah Johnson and colleagues, with an educational johny from [employer]. 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 Past Medical History: No Hx Neurological Disorders, No Hx Hypothyroidism, No Hx Hyperthyroidism, No Hx Breast Cancer, No Hx Cardiac Disorders, No Hx Hypertension, No Hx Cancer, No Hx Blood Disorders, No Hx Anemia, No Hx Gastrointestinal Disorders, No Hx Renal Disease, No Hx Diabetes Mellitus Type 1, No Hx Diabetes Mellitus Type 2 and Yes Hx Polycystic Ovarian Syndrome Care OB Visit Log OB Flowsheet Initial Weight: Not Recorded Date -?-?-?-?-?-?-?-?-?-?-?-?- EGA Weight BP Alb Glu CTX Pres Fundal ht FHR Mov Dilation Station Effacement Hx Notes Visit Note 12/31/24 -?-?-?-?-?-?-?-?-?-?-?-?- 15w 5d 64.07 kg 115/76 145 Patient on light duty. Father baby at bedside. Denies bleeding cramping. Urine protein negative glucose negative 01/28/25 -?-?-?-?-?-?-?-?-?-?-?-?- 19w 5d 68.152 kg 109/68 20 147 142 active Positive movement no bleeding. Patient was in the ER wrist recently about 2 weeks ago with some spotting. They suspected she had a UTI and sent her home on an antibiotic. Her urine culture was negative. 02/06/25 -?-?-?-?-?-?-?-?-?-?-?-?- 21w 0d 68.096 kg 120/78 21 134 active +FM, No VB or LOF. + rash that comes and goes. Extremely itchy 03/19/25 -?-?-?-?-?-?-?-?-?-?-?-?- 26w 6d 71.271 kg 112/71 28 134 active +FM No UCs N o VB Rash is gone, pt has significant pubic bone diastasis, recommended brace. Ordered GCT ELVA Calculator Estimated Delivery Date Method Current WG Current Estimate 06/19/25 Ultrasound #1 26w 6d Other Estimates 06/15/25 LMP (Certain) 27w 3d Expected Delivery Route/Plan Anticipate labs drawn at [facility] B+/ antibody negative/ hepatitis B surface antigen negative/ rubella immune /HIV negative. No RPR drawn. No urine culture drawn. No GC chlamydia drawn. Will add these labs. Had level [address] Matthew and has follow-up. No report on chart. Will try to find this report. Specific Issue/Plans AMA, on baby aspirin. Normal NIPT. Will order level 2 ultrasound. 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 Patient has 2 children of her own he has 3 children of his own. Multiple medical allergies Notes Visit Date: 03/19/25 Last Updated by: Sara Frey (OB Clinic)MD Had Level II US with Dr Kahn Visit Date: 02/06/25 Last Updated by: Sara Frey (OB Clinic)MD No signs of PUPPS or a significant rash. Benadryl. Zyrtec. Consider a medrol dose pack. Check LFTS and Bile acids. Discussed cholestasis. Pt extremely anxious Visit Date: 01/28/25 Last Updated by: Sara Frey (OB Clinic)MD Patient was in the ER 2 weeks ago. Some spotting. They diagnosed her with a bladder infection and she is finishing her antibiotics. Of note her urine culture was negative. She reports some pain in her abdomen. 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 She is a 39-year-old -0-0-2. Her son Hank is 8, her daughter Snehal is 9. The father the baby is a police patrol officer and has 3 children of his own. Office Procedures OB Clinic LOC & Office Proc's Nursing/Assessment Patient Status: Established Patient OB Clinic Nursing Assessment: Medication Reconciliation, Update PMH in EMR and Vital Signs OB Clinic Coordination of Care: Complex Care and Chronic Disease 1-5, Education Complex Pt/Fam, Consent,records obtained, informed consent and Education Simp Pt/Fam Special Needs: Heart tones Established Patient Charge Established Patient Point Assignment: 125 Established Patient Point Charge: EP Level 4 (120-155) Assessment & Plan Diagnosis / Problem List (1) : Status: Acute Qualifiers: Weeks of gestation: 20 weeks Qualified Code(s): Z3A.20 - 20 weeks gestation of
== END 2025-03-19 16:59 | disposition home or self-care (01) ==
LOC: HODSOBC 15:37
PROVIDERS: PCP Family Medicine; Referring Provider Family Medicine; Supervising Provider Obstetrics & Gynecology; Visit Provider Obstetrics & Gynecology
DX: O09.522 Supervision of elderly multigravida, second trimester (principal); O09.892 Supervision of other high risk pregnancies, second trimester; O26.712 Subluxation of symphysis (pubis) in pregnancy, second trimester; Z3A.26 26 weeks gestation of pregnancy; Z79.82 Long term (current) use of aspirin; Z91.040 Latex allergy status; Z88.6 Allergy status to analgesic agent; Z88.5 Allergy status to narcotic agent; Z88.0 Allergy status to penicillin
CPT/HCPCS: 99214; G0463

== ENCOUNTER → 2025-03-23 | Outpatient (CLI) | payer BC, SELFPAY ==
[2025-03-23 12:20] LABS: Basophils # (Auto) 0.0 Thou/mm3 (0.0-0.2); Basophils % (Auto) 0 % (0-2.5); Eosinophils # (Auto) 0.1 Thou/mm3 (0.0-0.5); Eosinophils % (Auto) 1 % (0-10); Hematocrit 32.9 % (36.0-46.0); Hemoglobin 11.0 g/dL (12.0-16.0); Immature Granulocytes Auto 0.09 Thou/mm3 (0.00-0.00); Lymphocytes # (Auto) 1.4 Thou/mm3 (1.0-4.8); Lymphocytes % (Auto) 17 % (10-50); Mean Corpuscular HGB Conc 33.4 g/dl (31.0-37.0); Mean Corpuscular Hemoglobin 30.1 pg (25.0-35.0); Mean Corpuscular Volume 90 fL (80-100); Monocytes # (Auto) 0.8 Thou/mm3 (0.0-0.8); Monocytes % (Auto) 9 % (0-12); Neutrophils # (Auto) 6.0 Thou/mm3 (1.8-7.7); Neutrophils % (Auto) 72 % (37-80); Nucleated Red Blood Cell # 0.00 Thou/mm3 (0.00-0.00); Nucleated Red Blood Cell % 0 /100 WBC (0); Platelet Count 275 Thou/mm3 (140-440); RDW Standard Deviation 42.4 fL (36.4-46.3); Red Blood Count 3.65 Miln/mm3 (4.00-5.20); White Blood Count 8.3 Thou/mm3 (3.6-11.0)
[2025-03-23 12:36] LABS: Glucose,1 Hour PP 50gm Dose 124 mg/dL (80-140)
== END | disposition home or self-care (01) ==
LOC: COPL 10:27
PROVIDERS: PCP Family Medicine; Referring Provider Obstetrics & Gynecology; Visit Provider Obstetrics & Gynecology
DX: Z01.89 Encounter for other specified special examinations (principal)
CPT/HCPCS: 36415; 82950; 85025

== ENCOUNTER 2025-04-09 12:58 | Observation (INO) | payer BC, SELFPAY ==
[2025-04-09 13:00] VITALS: BP 109/59; PULSE 97; RESP 18; RESP 99; TEMP 36.8; BMI 28.5
--- NOTE | 2025-04-09 14:12 | XR_ITS ---
Examination: Complete OB ultrasound greater than 14 weeks Date and time of exam: April 09, 2025 1427 hours INDICATIONS: Onset pelvic pressure today Findings: Viable intrauterine single fetus with single amniotic sac presentation cephalic spine maternal left Cardiac 2144 BPM Placenta maternal left grade 2 Umbilical cord insertion 3 vessel seen Amniotic fluid index 24.4 cm Cervix 4.02 cm Ovaries obscured by bowel gas. Composite estimated gestational age based on BPD, head circumference, abdominal circumference, femur length is 30 weeks 5 days Estimated weight 1562 g. Survey of intracranial anatomy, spinal anatomy, abdominal anatomy, four-chamber heart performed with no abnormalities identified. Impression: Viable intrauterine gestation cephalic presentation.
[2025-04-09 14:22] LABS: Collection Type, Urine Clean Catch
[2025-04-09 14:34] LABS: Bacteria,Urine 4+; Bilirubin,Urine Negative (Negative); Blood,Urine Negative (Negative); Clarity,Urine Turbid (Clear/Hazy); Color,Urine Lt-Yellow (Lt Yel-Yel); Glucose, Urine Negative (Negative); Ketones,Urine 1+ (Negative); Leukocyte Esterase,Urine Positive (Negative); Nitrite,Urine Negative (Negative); PH,Urine 7.0 (5.0-7.0); Protein,Urine Negative (Neg - Trace); RBC,Urine 5 /hpf (0-3); Specific Gravity,Urine 1.009 (1.001-1.035); Squamous Epithelial Cell,Urine 8 /hpf (0-5); Urobilinogen,Urine Negative mg/dL (0.0-1.0); WBC,Urine 16 /hpf (0-5)
[2025-04-09 14:38] LABS: Culture Indicated,Urine Yes
[2025-04-09 15:19] VITALS: BP 114/55; PULSE 82; RESP 18
== END 2025-04-09 15:25 | disposition home or self-care (01) ==
PROVIDERS: Admitting Provider Obstetrics & Gynecology; Visit Provider Obstetrics & Gynecology
DX: O26.893 Other specified pregnancy related conditions, third trimester (principal); Z3A.30 30 weeks gestation of pregnancy; R10.2 Pelvic and perineal pain; M54.9 Dorsalgia, unspecified
CPT/HCPCS: 59899; 76805; 81001; 87086

== ENCOUNTER → 2025-04-17 15:40 | Outpatient (AMB) | payer BC, SELFPAY ==
[2025-04-17 15:47] VITALS: BP 108/66; PULSE 81; RESP 16; TEMP 36.7; O2SAT 96; BMI 28.5
--- NOTE | 2025-04-17 15:47 | AMB.OBVISIT ---
Vital Signs 04/17/25 15:47 Height 1.6 m Height Method Stated Weight 73.085 kg Weight Measurement Method Standing Scale BMI 28.5 BP 108/66 Blood Pressure Source Automatic Cuff Blood Pressure Location Left Upper Arm Position Sitting Respiration 16 Pulse 81 Pulse Source Monitor Temp 98.1 F Temp Source Oral Pulse Oximetry (%) 96 Oxygen Delivery Method Room Air Allergies/Home Meds Allergies & Medications Allergies latex Allergy (Mild, Verified 04/17/25 15:47) Rash acetaminophen (From Vicodin) Adverse Reaction (Intermediate, Verified 04/17/25 15:47) Nausea amoxicillin (From Augmentin) Adverse Reaction (Intermediate, Verified 04/17/25 15:47) Nausea clavulanic acid (From Augmentin) Adverse Reaction (Intermediate, Verified 04/17/25 15:47) Nausea hydrocodone (From Vicodin) Adverse Reaction (Intermediate, Verified 04/17/25 15:47) Nausea Medication Reconciliation methylprednisolone 4 mg tablets in a dose pack (Medrol (Davion)) See Rx Instructions PO PER PKG DIR #21 tabs 02/07/25 [Rx Confirmed 04/17/25] Intake Visit Data Collection New Patient or Established: Established Patient (seen at [facility] within 3 years) Reason for Visit:: CARE Seen by Clinical Staff ONLY (RN/MA): No Bronc Breaker Required: No Do You Feel Safe at Home: Yes Authorities Contacted: N/A PCP or OBGYN visit in last 3 months: Yes Hx Now: Yes Are you currently on any form of Control: No Pain Present Currently: No Pain Scale Used: [place]-Mirza/Numerical Pain scale:: 0 Smoking Status Smoking Status: Never smoker Questionnaires Covid-19 Vaccine Questionnaire Has patient been vacinated for Covid-19 Have you been vacinated for Covid-19: Yes PHQ-9 PHQ-2 Over the last 2 weeks, how often have you been bothered by any of the following problems? 1. Little interest or pleasure in doing things: not at all 2. Feeling down, depressed, or hopeless: not at all Total score: 0 PHQ-9 3. Trouble falling or staying asleep, or sleeping too much: Not at all 4. Feeling tired or having little energy: Not at all 5. Poor appetite or overeating: Not at all 6. Feeling bad about yourself - or that you are a failure or have let yourself or your family down: Not at all 7. Trouble concentrating on things, such as reading the newspaper or watching television: Not at all 8. Moving or speaking so slowly that other people could have noticed? - Or the opposite - being so fidgety or restless that you have been moving around a lot more than usual: not at all 9. Thoughts that you would be better off or of hurting yourself in some way: Not at all Total score: 0 Source: Developed by Drs. Oliver Arce, Jo Ann Arriaga, Elijah Johnson and colleagues, with an educational johny from [employer]. Depression screen completed yes Social History Living Situation History Lives With: Family Housing: House Housing Other:: Works as a [employer], 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 Past Medical History: No Hx Neurological Disorders, No Hx Hypothyroidism, No Hx Hyperthyroidism, No Hx Breast Cancer, No Hx Cardiac Disorders, No Hx Hypertension, No Hx Cancer, No Hx Blood Disorders, No Hx Anemia, No Hx Gastrointestinal Disorders, No Hx Renal Disease, No Hx Diabetes Mellitus Type 1, No Hx Diabetes Mellitus Type 2 and Yes Hx Polycystic Ovarian Syndrome Care OB Visit Log OB Flowsheet Initial Weight: Not Recorded Date <del>?</del> EGA Weight BP Alb Glu CTX Pres Fundal ht FHR Mov Dilation Station Effacement Hx Notes Visit Note 12/31/24 <del>?</del> 15w 5d 64.07 kg 115/76 145 Patient on light duty. Father baby at bedside. Denies bleeding cramping. Urine protein negative glucose negative 01/28/25 <del>?</del> 19w 5d 68.152 kg 109/68 20 147 142 active Positive movement no bleeding. Patient was in the ER wrist recently about 2 weeks ago with some spotting. They suspected she had a UTI and sent her home on an antibiotic. Her urine culture was negative. 02/06/25 <del>?</del> 21w 0d 68.096 kg 120/78 21 134 active +FM, No VB or LOF. + rash that comes and goes. Extremely itchy 03/19/25 <del>?</del> 26w 6d 71.271 kg 112/71 28 134 active +FM No UCs No VB Rash is gone, pt has significant pubic bone diastasis, recommended brace. Ordered GCT 04/17/25 <del>?</del> 31w 0d 73.085 kg 108/66 occasional 31 138 active Patient reports good movement no contractions or loss of fluids. She states she feels tired and dizzy. She has occasional headaches. Patient states she does not feel right Sent to OB triage for further evaluation. ELVA Calculator Estimated Delivery Date Method Current WG Current Estimate 06/19/25 Ultrasound #1 31w 0d Other Estimates 06/15/25 LMP (Certain) 31w 4d Expected Delivery Route/Plan Anticipate labs drawn at [facility] B+/ antibody negative/ hepatitis B surface antigen negative/ rubella immune /HIV negative. No RPR drawn. No urine culture drawn. No GC chlamydia drawn. Will add these labs. Had level [address] Matthew and has follow-up. No report on chart. Will try to find this report. Specific Issue/Plans AMA, on baby aspirin. Normal NIPT. Will order level 2 ultrasound. Works as a [employer]. On light duty. New father the baby this . Patient has 2 children of her own he has 3 children of his own. Multiple medical allergies Notes Visit Date: 04/17/25 Last Updated by: Sara Frey (OB Clinic)MD Patient states she was in triage about a week ago she was closed they check her urine and it was negative. She has not gotten that belly band. We did discuss tubal ligation if she needs a and she would like papers to be signed. Visit Date: 03/19/25 Last Updated by: Sara Frey (OB Clinic)MD Had Level II US with Dr Kahn Visit Date: 02/06/25 Last Updated by: Sara Frey (OB Clinic)MD No signs of PUPPS or a significant rash. Benadryl. Zyrtec. Consider a medrol dose pack. Check LFTS and Bile acids. Discussed cholestasis. Pt extremely anxious Visit Date: 01/28/25 Last Updated by: Sara Frey (OB Clinic)MD Patient was in the ER 2 weeks ago. Some spotting. They diagnosed her with a bladder infection and she is finishing her antibiotics. Of note her urine culture was negative. She reports some pain in her abdomen. 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 Visit Date: 12/31/24 Last Updated by: Sara Frey (OB Clinic)MD Patient employed as a [employer]. EDC 06/18/2024. She is a 39-year-old -0-0-2. Her son Hank is 8, her daughter Snehal is 9. The father the baby is a articulation officer and has 3 children of his own. Office Procedures OB Clinic LOC & Office Proc's Nursing/Assessment Patient Status: Established Patient OB Clinic Nursing Assessment: Medication Reconciliation, Update PMH in EMR and Vital Signs OB Clinic Coordination of Care: Complex Care and Chronic Disease 1-5, Consent,records obtained, informed consent, Education Simp Pt/Fam, Lab and Imaging orders, Results/Orders obtained and Staff clarify orders Special Needs: Heart tones Established Patient Charge Established Patient Point Assignment: 135 Established Patient Point Charge: EP Level 4 (120-155) Assessment & Plan Diagnosis / Problem List (1) Advanced maternal age (AMA), 40 years or greater: Status: Acute Plan: Patient saw Dr. Matthew. Will follow-up for another ultrasound. (2) : Status: Acute Qualifiers: Weeks of gestation: 30 weeks Qualified Code(s): Z3A.30 - 30 weeks gestation of Plan: Patient feels dizzy lightheaded. She needs to go to triage to get lab work drawn. This was not done a week ago. Urged eating every 2 hours and drinking lots of fluid. Additional Plan Follow Up: 2 Weeks
== END ==
LOC: HODSOBC 15:40
PROVIDERS: Supervising Provider Obstetrics & Gynecology; Visit Provider Obstetrics & Gynecology
DX: O09.523 Supervision of elderly multigravida, third trimester (principal); O09.893 Supervision of other high risk pregnancies, third trimester; O99.891 Other specified diseases and conditions complicating pregnancy; R42 Dizziness and giddiness; Z3A.31 31 weeks gestation of pregnancy; Z91.040 Latex allergy status; Z88.6 Allergy status to analgesic agent; Z88.5 Allergy status to narcotic agent; Z88.0 Allergy status to penicillin
CPT/HCPCS: 99214; G0463

== ENCOUNTER 2025-04-17 16:57 | Observation (INO) | payer BC, SELFPAY ==
[2025-04-17] VITALS (33 sets, daily range): BP systolic 112; BP diastolic 58; PULSE 75–157; RESP 18–98; TEMP 36.8; O2SAT 87–100; BMI 28.5
[2025-04-17] MEDS: RINGERS LACTATED 1000 ML 1,000 ML 999 ML IV (17:06)
[2025-04-17 17:42] LABS: Collection Type, Urine Clean Catch
[2025-04-17 17:48] LABS: Basophils # (Auto) 0.0 Thou/mm3 (0.0-0.2); Basophils % (Auto) 0 % (0-2.5); Eosinophils # (Auto) 0.1 Thou/mm3 (0.0-0.5); Eosinophils % (Auto) 1 % (0-10); Hematocrit 30.3 % (36.0-46.0); Hemoglobin 10.3 g/dL (12.0-16.0); Immature Granulocytes Auto 0.13 Thou/mm3 (0.00-0.00); Lymphocytes # (Auto) 1.6 Thou/mm3 (1.0-4.8); Lymphocytes % (Auto) 16 % (10-50); Mean Corpuscular HGB Conc 34.0 g/dl (31.0-37.0); Mean Corpuscular Hemoglobin 29.9 pg (25.0-35.0); Mean Corpuscular Volume 88 fL (80-100); Monocytes # (Auto) 1.1 Thou/mm3 (0.0-0.8); Monocytes % (Auto) 11 % (0-12); Neutrophils # (Auto) 6.9 Thou/mm3 (1.8-7.7); Neutrophils % (Auto) 70 % (37-80); Nucleated Red Blood Cell # 0.00 Thou/mm3 (0.00-0.00); Nucleated Red Blood Cell % 0 /100 WBC (0); Platelet Count 274 Thou/mm3 (140-440); RDW Standard Deviation 41.2 fL (36.4-46.3); Red Blood Count 3.45 Miln/mm3 (4.00-5.20); White Blood Count 9.9 Thou/mm3 (3.6-11.0)
[2025-04-17 17:55] LABS: Bacteria,Urine 3+; Bilirubin,Urine Negative (Negative); Blood,Urine Negative (Negative); Clarity,Urine Clear (Clear/Hazy); Color,Urine Lt-Yellow (Lt Yel-Yel); Glucose, Urine Negative (Negative); Ketones,Urine Negative (Negative); Leukocyte Esterase,Urine Positive (Negative); Nitrite,Urine Negative (Negative); PH,Urine 7.0 (5.0-7.0); Protein,Urine Negative (Neg - Trace); RBC,Urine 3 /hpf (0-3); Specific Gravity,Urine 1.011 (1.001-1.035); Squamous Epithelial Cell,Urine 2 /hpf (0-5); Urobilinogen,Urine Negative mg/dL (0.0-1.0); WBC,Urine 7 /hpf (0-5)
[2025-04-17 18:32] LABS: Albumin, Serum 3.6 gm/dL (3.5-5.0); Albumin/Globulin Ratio 1.6 (1.2-2.2); Alkaline Phosphatase 103 U/L (46-116); Anion Gap 9 (7-16); Aspartate Amino Transferase 15 U/L (0-34); BUN/Creatinine Ratio 15 Ratio (12-20); Bilirubin,Total 0.8 mg/dL (0.3-1.2); Blood Urea Nitrogen 6 mg/dL (9-23); Calcium 8.7 mg/dL (8.3-10.6); Calcium (Corrected) 9.0 mg/dL (8.5-10.1); Carbon Dioxide 22.8 mMol/L (20.0-31.0); Chloride 106 mMol/L (98-107); Creatinine (Component) 0.4 mg/dL (0.6-1.3); Estimated Creatinine Clearance 179.0 mL/min (>60); Globulin 2.3 gm/dL (2.3-3.5); Glucose 86 mg/dL (74-106); LDH (Lactate Dehydrogenase) 167 U/L (120-246); Osmolality,Calculated 272 (275-295); Potassium 3.5 mMol/L (3.4-5.1); Sodium 138 mMol/L (136-145); Total Protein 5.9 gm/dL (5.7-8.2); Uric Acid 2.9 mg/dL (3.1-7.8); eGFR > 60 See Note
[2025-04-17 18:46] LABS: Alanine Aminotransferase < 7 U/L (10-49)
[2025-04-17 19:27] LABS: Fibrinogen 454 mg/dL (175-375); INR 0.9 (0.9-1.3); Partial Thromboplastin Time 24.5 Seconds (22.0-36.0); Prothrombin Time 10.2 Seconds (9.0-12.2)
== END 2025-04-17 20:15 | disposition home or self-care (01) ==
PROVIDERS: Admitting Provider Obstetrics & Gynecology; Visit Provider Obstetrics & Gynecology
DX: O21.2 Late vomiting of pregnancy (principal); Z3A.30 30 weeks gestation of pregnancy; O26.893 Other specified pregnancy related conditions, third trimester; R42 Dizziness and giddiness; H53.8 Other visual disturbances
CPT/HCPCS: 36415; 59025; 59899; 80053; 81001; 83615; 84550; 85025; 85384; 85610; 85730; 87086; J7120

== ENCOUNTER 2025-04-30 15:47 | Observation (INO) | payer BC, SELFPAY ==
[2025-04-30 15:57] VITALS: PULSE 73; O2SAT 97
[2025-04-30 16:00] VITALS: BP 119/64; PULSE 89; RESP 19; RESP 96; TEMP 36.6; BMI 28.6
[2025-04-30 16:19] VITALS: PULSE 88; O2SAT 96
[2025-04-30 16:20] VITALS: BP 119/64; PULSE 88
[2025-04-30 16:48] LABS: Collection Type, Urine Clean Catch
[2025-04-30 16:55] LABS: Bacteria,Urine 1+; Bilirubin,Urine Negative (Negative); Blood,Urine Negative (Negative); Clarity,Urine Turbid (Clear/Hazy); Color,Urine Lt-Yellow (Lt Yel-Yel); Glucose, Urine Negative (Negative); Ketones,Urine Negative (Negative); Leukocyte Esterase,Urine Positive (Negative); Nitrite,Urine Negative (Negative); PH,Urine 6.5 (5.0-7.0); Protein,Urine Trace (Neg - Trace); RBC,Urine 3 /hpf (0-3); Specific Gravity,Urine 1.017 (1.001-1.035); Squamous Epithelial Cell,Urine 10 /hpf (0-5); Urobilinogen,Urine Negative mg/dL (0.0-1.0); WBC,Urine 29 /hpf (0-5)
--- NOTE | 2025-04-30 17:18 | XR_ITS ---
Examination: Transvaginal ultrasound of the pelvis, Limited Technique: Transvaginal sonographic images pelvis performed using martins scale imaging Exam date and time: April 30, 2025 1738 hrs. Back pain pelvic pain and cramping today, unknown cervical length. Findings: Cervix 4.6 cm closed Impression: Cervix 4.6 cm).
[2025-04-30] MEDS: RINGERS LACTATED 1000 ML 1,000 ML 999 ML IV (18:10)
[2025-04-30 18:40] LABS: FFN Specimen Descripton Clr Colrless Aqueous; Fetal Fibronectin Negative (Negative)
--- NOTE | 2025-04-30 20:24 | PD.LDPN ---
Documentation for date of: 04/30/25 OB Labor Progress Note Pelvic Exam Amniotic membrane status: Intact Contractions Monitor mode: External Contraction frequency: x2 Status status: Category l Assessment and Plan Comments: Triage Note Reny is a 39yo with SIUP at 32&6wk presenting to L&D for ctx and back discomfort. No lof, no vaginal bleeding. Normal movement. complicated by: AMA (age 39) Se[address] Dr[address] Frey for PNC. ROS negative other than what was described above. Vitals wnl, afebrile General: well developed, well nourished, no acute distress, conversant Cardiac: normal heart rate Lungs: breathing without distress Abdomen: soft, gravid, non-tender, no rebound or guarding Extremities: no edema of BLE NST: Reassuring for gestational age, +accels, no decels, mod tae [place]: ctx q3-4min initially. After 1L of IVF, no ctx pattern Labs: FFN negative UA: dirty catch (29 WBC but 10 squam) Imaging: Examination: Transvaginal ultrasound of the pelvis, Limited Technique: Transvaginal sonographic images pelvis performed using martins scale imaging Exam date and time: April 30, 2025 1738 hrs. Back pain pelvic pain and cramping today, unknown cervical length. Findings: Cervix 4.6 cm closed Impression: Cervix 4.6 cm Assessment: Reny is a 39yo with SIUP at 32&6wk with no evidence of PTL based on cervical length 4.6cm, FFN negative. Ctx resolved with IVF. Vitals wnl, benign exam. Reassuring status. Plan: -Continue routine follow up with Dr. Frey -Discussed return precautions -Safe for discharge home at this time Rosa Aguero MD
== END 2025-04-30 19:12 | disposition home or self-care (01) ==
PROVIDERS: Admitting Provider Obstetrics & Gynecology; Visit Provider Obstetrics & Gynecology
DX: O26.893 Other specified pregnancy related conditions, third trimester (principal); Z3A.32 32 weeks gestation of pregnancy; M54.50 Low back pain, unspecified; O09.523 Supervision of elderly multigravida, third trimester
CPT/HCPCS: 59025; 59899; 76830; 81001; 82731; J7120

== ENCOUNTER 2025-05-06 15:12 | Outpatient (AMB) | payer BC, SELFPAY ==
--- NOTE | 2025-05-06 16:56 | OBCLNT_ITS ---
Vital Signs 05/06/25 16:57 Height 1.6 m Height Method Stated Weight 74.616 kg Weight Measurement Method Standing Scale BMI 29.1 BP 111/70 Blood Pressure Source Automatic Cuff Blood Pressure Location Left Upper Arm Position Sitting Respiration 16 Pulse 89 Pulse Source Monitor Temp 98.4 F Temp Source Oral Pulse Oximetry (%) 98 Oxygen Delivery Method Room Air Allergies/Home Meds Allergies & Medications Allergies latex Allergy (Mild, Verified 05/06/25 16:58) Rash acetaminophen (From Vicodin) Adverse Reaction (Intermediate, Verified 05/06/25 16:58) Nausea amoxicillin (From Augmentin) Adverse Reaction (Intermediate, Verified 05/06/25 16:58) Nausea clavulanic acid (From Augmentin) Adverse Reaction (Intermediate, Verified 05/06/25 16:58) Nausea hydrocodone (From Vicodin) Adverse Reaction (Intermediate, Verified 05/06/25 16:58) Nausea Medication Reconciliation docusate sodium 100 mg capsule (Colace) 100 mg PO BID #60 caps 04/17/25 [Rx Confirmed 05/06/25] ferrous sulfate 325 mg (65 mg iron) tablet (Feosol) 325 mg PO QDAY #30 tabs 04/17/25 [Rx Confirmed 05/06/25] vit no.95-ferrous fumarate 28 mg-folic acid 800 mcg tablet () 1 tab PO QDAY 04/30/25 [History Confirmed 05/06/25] fluconazole 150 mg tablet 150 mg PO Q3D 2 doses #2 tabs 05/12/25 [Rx] Intake Visit Data Collection New Patient or Established: Established Patient (seen at [facility] within 3 years) Reason for Visit:: CARE Seen by Clinical Staff ONLY (RN/MA): No Ultrasound Technician Required: No Do You Feel Safe at Home: Yes Authorities Contacted: N/A PCP or OBGYN visit in last 3 months: Yes Hx Now: Yes Are you currently on any form of Control: No Pain Present Currently: No Pain Scale Used: [place]za/Numerical Pain scale:: 0 Smoking Status Smoking Status: Never smoker Questionnaires Covid-19 Vaccine Questionnaire Has patient been vacinated for Covid-19 Have you been vacinated for Covid-19: Yes PHQ-9 PHQ-2 Over the last 2 weeks, how often have you been bothered by any of the following problems? 1. Little interest or pleasure in doing things: not at all 2. Feeling down, depressed, or hopeless: not at all Total score: 0 PHQ-9 3. Trouble falling or staying asleep, or sleeping too much: Not at all 4. Feeling tired or having little energy: Not at all 5. Poor appetite or overeating: Not at all 6. Feeling bad about yourself - or that you are a failure or have let yourself or your family down: Not at all 7. Trouble concentrating on things, such as reading the newspaper or watching television: Not at all 8. Moving or speaking so slowly that other people could have noticed? - Or the opposite - being so fidgety or restless that you have been moving around a lot more than usual: not at all 9. Thoughts that you would be better off or of hurting yourself in some way: Not at all Total score: 0 Source: Developed by Drs. Oliver Arce, Jo Ann Arriaga, Elijah Johnson and colleagues, with an educational johny from [employer]. Depression screen completed yes Social History Living Situation History Lives With: Family Housing: House Housing Other:: Works as a [employer], 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: Past Medical History Past Medical History: No Hx Neurological Disorders, No Hx Hypothyroidism, No Hx Hyperthyroidism, No Hx Breast Cancer, No Hx Cardiac Disorders, No Hx Hypertension, No Hx Cancer, No Hx Blood Disorders, No Hx Anemia, No Hx Gastrointestinal Disorders, No Hx Renal Disease, No Hx Diabetes Mellitus Type 1, No Hx Diabetes Mellitus Type 2 and Yes Hx Polycystic Ovarian Syndrome Care OB Visit Log OB Flowsheet Initial Weight: Not Recorded Date -?-?-?-?-?-?-?-?-?-?-?-?- EGA Weight BP Alb Glu CTX Pres Fundal ht FHR Mov Dilation Station Effacement Hx Notes Visit Note 12/31/24 -?-?-?-?-?-?-?-?-?-?-?-?- 15w 5d 64.07 kg 115/76 145 Patient on light duty. Father baby at bedside. Denies bleeding cramping. Urine protein negative glucose negative 01/28/25 -?-?-?-?-?-?-?-?-?-?-?-?- 19w 5d 68.152 kg 109/68 20 147 142 active Positive movement no bleeding. Patient was in the ER wrist recently about 2 weeks ago with some spotting. They suspected she had a UTI and sent her home on an antibiotic. Her urine culture was negative. 02/06/25 -?-?-?-?-?-?-?-?-?-?-?-?- 21w 0d 68.096 kg 120/78 21 134 active +FM, No VB or LOF. + rash that comes and goes. Extremely itchy 03/19/25 -?-?-?-?-?-?-?-?-?-?-?-?- 26w 6d 71.271 kg 112/71 28 134 active +FM No UCs N o VB Rash is gone, pt has significant pubic bone diastasis, recommended brace. Ordered GCT 04/17/25 -?-?-?-?-?-?-?-?-?-?-?-?- 31w 0d 73.085 kg 108/66 occasional 31 138 active Patient reports good movement no contractions or loss of fluids. She states she feels tired and dizzy. She has occasional headaches. Patient states she does not feel right Sent to OB triag e for further evaluation. 05/06/25 -?-?-?-?-?-?-?-?-?-?-?-?- 33w 5d 74.616 kg 111/70 occasional breech 35 1 45 active Good movement. Went to triage 04/30/2025 rule out labor. fibronectin negative. Unsure whether she wants to go off work. Will write a note for the end of the month. Sign tubal ligation papers in case she needs a . ELVA Calculator Estimated Delivery Date Method Current WG Current Estimate 06/19/25 Ultrasound #1 34w 4d Other Estimates 06/15/25 LMP (Certain) 35w 1d Expected Delivery Route/Plan Anticipate labs drawn at [facility] B+/ antibody negative/ hepatitis B surface antigen negative/ rubella immune /HIV negative. No RPR drawn. No urine culture drawn. No GC chlamydia drawn. Will add these labs. Had level [address] Matthew and has follow-up. No report on chart. Will try to find this report. Specific Issue/Plans AMA, on baby aspirin. Normal NIPT. Will order level 2 ultrasound. 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 New father the baby this . Patient has 2 children of her own he has 3 children of his own. Multiple medical allergies Notes Visit Date: 05/06/25 Last Updated by: Sara Frey (OB Clinic)MD Patient saw Dr. Matthew 05/04/2025 baby was breech. 78th percentile. Abdominal circumference large. Plan will be to repeat an ultrasound in 3 to 4 weeks. Patient signed tubal ligation papers today if she needs a Visit Date: 04/17/25 Last Updated by: Sara Frey (OB Clinic)MD Patient states she was in triage about a week ago she was closed they check her urine and it was negative. She has not gotten that belly band. We did discuss tubal ligation if she needs a and she would like papers to be signed. Visit Date: 03/19/25 Last Updated by: Sara Frey (OB Clinic)MD Had Level II US with Dr Kahn Visit Date: 02/06/25 Last Updated by: Sara Frey (OB Clinic)MD No signs of PUPPS or a significant rash. Benadryl. Zyrtec. Consider a medrol dose pack. Check LFTS and Bile acids. Discussed cholestasis. Pt extremely anxious Visit Date: 01/28/25 Last Updated by: Sara Frey (OB Clinic)MD Patient was in the ER 2 weeks ago. Some spotting. They diagnosed her with a bladder infection and she is finishing her antibiotics. Of note her urine culture was negative. She reports some pain in her abdomen. 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 Visit Date: 12/31/24 Last Updated by: Sara Frey (OB Clinic)MD Patient employed as a [employer]. EDC 06/18/2024. She is a 39-year-old -0-0-2. Her son Hank is 8, her daughter Snehal is 9. The father the baby is a aoc director combat operations officer and has 3 children of his own. Office Procedures OB Clinic LOC & Office Proc's Nursing/Assessment Patient Status: Established Patient OB Clinic Nursing Assessment: Medication Reconciliation, Update PMH in EMR and Vital Signs OB Clinic Coordination of Care: Complex Care and Chronic Disease 1-5, Consent,records obtained, informed consent, Education Simp Pt/Fam, Lab and Imaging orders, Results/Orders obtained and Staff clarify orders Special Needs: Heart tones Established Patient Charge Established Patient Point Assignment: 135 Established Patient Point Charge: EP Level 4 (120-155) Assessment & Plan Diagnosis / Problem List (1) Advanced maternal age (AMA), 40 years or greater: Status: Acute (2) : Status: Acute Qualifiers: Weeks of gestation: 33 weeks Qualified Code(s): Z3A.33 - 33 weeks gestation of
[2025-05-06 16:57] VITALS: BP 111/70; PULSE 89; RESP 16; TEMP 36.9; O2SAT 98; BMI 29.1
== END 2025-05-06 17:11 | disposition home or self-care (01) ==
PROVIDERS: Supervising Provider Obstetrics & Gynecology; Visit Provider Obstetrics & Gynecology
DX: O09.523 Supervision of elderly multigravida, third trimester (principal); O09.893 Supervision of other high risk pregnancies, third trimester; O32.1XX0 Maternal care for breech presentation, not applicable or unspecified; Z3A.33 33 weeks gestation of pregnancy; Z91.040 Latex allergy status; Z88.6 Allergy status to analgesic agent; Z88.1 Allergy status to other antibiotic agents; Z88.5 Allergy status to narcotic agent; Z88.0 Allergy status to penicillin
CPT/HCPCS: 99214; G0463

== ENCOUNTER 2025-05-15 04:03 | Emergency (ER) | payer BC, SELFPAY ==
[2025-05-15 04:13] VITALS: BP 106/57; PULSE 77; RESP 18; TEMP 36.5; O2SAT 99
[2025-05-15 04:16] VITALS: BMI 29.4
--- NOTE | 2025-05-15 04:20 | EKG_ITS ---
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
--- NOTE | 2025-05-15 04:30 | EDNOTE_ITS ---
ED SOB =RME/HPI General Chief Complaint: Shortness of Breath/Dyspnea Stated Complaint: 35 WKS PREG WOKE UP DIFFICULTY BREATHING Time Seen by Provider: 05/15/25 04:30 Source: patient and family Arrival date/time: 05/15/25 04:03 Mode of arrival: ambulatory RME / HPI RME / HPI Narrative: Ms. Cuellar is a 39-year-old female G3, P2 with no significant past medical history, patient is 35 weeks , presented to [facility] ED on 05/15 with a chief complaint of chest tightness and shortness of breath. Patient reported that she woke up earlier this morning around 2 AM with shortness of breath and feeling that she cannot breathe, patient reports that she used nasal saline spray does endorse feeling stuffiness in her nose weird sensation in her throat. Complains of tightness in her chest, does have a recent emotional stressor family member at bedside reported that there has been a recent in the family. Patient denies any sick contacts, fevers, chills, vomiting, myalgias reports that she has been feeling weak but attributes it to her . Patient was seen by NURSING INFORMATICS CLINICAL ANALYST on 05/06/2025, lab draw 04/17/2025 shows hemoglobin 10.3 labs otherwise unremarkable. Related Data Home Medications ?Medication ?Instructions ?Recorded ?Confirmed vit no.95-ferrous 1 tab PO QDAY 04/30/2504/27 fumarate 28 mg-folic acid 800 mcg tablet () Previous Rx's ?Medication ?Instructions ?Recorded docusate sodium 100 mg capsule 100 mg PO BID #60 caps 04/17/25 (Colace) ferrous sulfate 325 mg (65 mg 325 mg PO QDAY #30 tabs 04/17/25 iron) tablet (Feosol) fluconazole 150 mg tablet 150 mg PO Q3D 2 doses #2 tab s 05/12/25 Allergies Allergy/AdvReac Type Severity Reaction Status Date / Time latex Allergy Mild Rash Verified 05/15/25 04:12 acetaminophen (From Vicodin) AdvReac Intermediate Nausea Verified 05/15/25 04:12 amoxicillin (From Augmentin) AdvReac Intermediate Nausea Verified 05/15/25 04:12 clavulanic acid (From AdvReac Intermediate Nausea Verified 05/15/25 04:12 Augmentin) hydrocodone (From Vicodin) AdvReac Intermediate Nausea Verified 05/15/25 04:12 Review of Systems Review of Systems Systems Reviewed: All systems reviewed, normal except as documented Past Medical History Past Medical History NEUROLOGIC: Negative Neurological Disorders, Cerebrovascular Accident, Brain Tumor, Meningitis, Seizures, Epilepsy, Amyotrophic Lateral Sclerosis (ALS/Carmela Gehrig's), Cast's Palsy, Migraine or Head Trauma CARDIAC: Positive Cellulitis (NAIL L THUMB AVULSION WITH NEOSPORIN IN OCT); Negative Cardiac Disorders, Heart Murmur, Hypercholesterolemia, Congestive Heart Failure, Edema or Hypertension RESPIRATORY: Positive Bronchitis; Negative Chronic Obstructive Pulmonary Disease (COPD), Asthma, Pneumonia, Tuberculosis, Pulmonary Edema or Sleep Apnea GASTROINTESTINAL: Negative Gastrointestinal Disorders GENITOURINARY: Negative Genitourinary Disorders or Renal Disease REPRODUCTIVE: Positive Hx Polycystic Ovarian Syndrome and Previous Pregnancies ( x 2); Negative Breast Cancer, Endometriosis (edometrial polyps), Fibroids, Genital Herpes, Gonorrhea or Pelvic Inflammatory Disease MUSCULOSKELETAL: Positive Musculoskeletal Disorders, Scoliosis and Fractures (left foot 2nd toe); Negative Arthritis or Rheumatoid Arthritis ENT: Negative Head Trauma ENDOCRINE: Negative Endocrine Disorders, Diabetes Mellitus Type 1, Diabetes Mellitus Type 2, Hyperthyroidism or Hypothyroidism HEMATOLOGIC: Negative Blood Disorders, Anemia or Clotting Problems PSYCHO/SOCIAL: Positive Depression; Negative Depression or Anxiety OTHER HISTORY: Positive Hospitalization (For deliveries) and Chicken Pox; Negative Autoimmune Disease, Cosmetic Surgery, Shingles, Falls, Blood Transfusions, Blood Transfusion Reaction, Anesthesia Reactions, Cancer or Breast Cancer Family History FAMILY HISTORY: Positive Family Cardiac Disorders (mother father HTN), Family Gastrointestinal Problems (FATHER GERD) and Family Surgery (FATHER KNEE, BROTHER APPENDIX); Negative Family Respiratory Disorders, Family Cancer or Family Anesthesia Reaction Surgical History SURGICAL: Negative Pacemaker or Ear Surgery Social History SMOKING STATUS: Never smoker SECOND HAND EXPOSURE: No ED Exam Narrative Physical exam: Physical Exam General: Awake and in no acute distress. Conversational and non-toxic appearing. HEENT: Normocephalic, atraumatic, mucous membranes moist. Heart: Regular rate and rhythm, no murmurs. spO2 >95 on room air. Lungs: Clear to auscultation with no wheezing or crackles. Abdomen: , nondistended, nontender, positive bowel sounds. ?No guarding or rebound tenderness. Neurologic: Alert and oriented x3, no gross neurological deficit, and patient able to move all 4 extremities. Extremities: Trace BLE edema symmetrical, Mckenna sign negative Skin: No rash or ecchymoses. Course Course Course Narrative: Patient seen in room 7 39-year-old female G3, P2 seen for chest tightness and shortness of breath, no past medical history Trace BLE edema, Homans' sign negative, low clinical suspicion of PE as patient is sinus rhythm, SpO2 greater than 95 on room air EKG obtained shows sinus rhythm with no signs of ischemia no acute ST-T changes Ordered bedside flu and COVID, negative Patient does have recent emotional stressor ~ in family Patient symptoms likely secondary to anxiety and , educated on anxiety management and coping with . Recommended following up with NURSING INFORMATICS CLINICAL ANALYST outpatient Quality Measures none Orders Category Date Time Status Bedside COVID-19 Antigen Test NOW Care 05/15/25 04:28 Active Bedside Influenza A&B Antigen Test NOW Care 05/15/25 04:28 Completed EKG (ED ONLY) *Do not use* NOW Care 05/15/25 04:20 Completed EKG (ED Only) Stat Exams 05/15/25 04:20 Draft Vital Signs Vital signs: Vital Signs Temperature 97.7 F 05/15/25 04:13 Pulse Rate 77 05/15/25 04:13 Respiratory Rate 18 05/15/25 04:13 Blood Pressure 106/57 L 05/15/25 04:13 Pulse Oximetry (%) 99 05/15/25 04:13 Oxygen Delivery Method Room Air 05/15/25 04:13 Shortness of Breath / Dyspnea MDM Narrative MDM Narrative:: #Anxiety #Chest Tightness, SOB 39-year-old female G3, P2 seen for chest tightness and shortness of breath, no past medical history Trace BLE edema, Homans' sign negative, low clinical suspicion of PE as patient is sinus rhythm, SpO2 greater than 95 on room air EKG obtained shows sinus rhythm with no signs of ischemia no acute ST-T changes Ordered bedside flu and COVID, negative Patient was seen by NURSING INFORMATICS CLINICAL ANALYST on 05/06/2025, lab draw 04/17/2025 shows hemoglobin 10.3 labs otherwise unremarkable. Patient does have recent emotional stressor ~ in family Patient symptoms likely secondary to anxiety and , educated on anxiety management and coping with . Recommended following up with NURSING INFORMATICS CLINICAL ANALYST outpatient Case discussed with Attending Physician Dr. Wiley Schmidt MD Internal Medicine PGY-2 Disclaimer: This note was dictated by speech recognition. Minor errors in tool and equipment rental clerk may be present due to voice recognition software. Patient data External records reviewed:: [facility] previous records Clinical information provided by:: patient Social determinants that could affect healthcare access:: none Patient has the following chronic illnesses:: None How is presenting disease/condition affected by chronic disease/condition?: no chronic disease Evaluation data The following diagnostics were reviewed and interpreted by me:: lab results and EKG tracing(s) Lab and/or radiology exams considered but not ordered:: None Interpretation Summary: EKG obtained shows sinus rhythm with no signs of ischemia no acute ST-T changes Ordered bedside flu and COVID, negative Medications / Prescriptions Medications or Prescriptions considered but not ordered:: None Medication administrations:: None Consultations Consultation(s) initiated? (list below): No Diagnosis Shortness of Breath Differential Diagnosis: other (Anxiety, Flu, COVID) Most likely diagnosis given after review of the tests above:: Anxiety Admission Indicated Admission indicated?: not indicated Admission Request Was there a request for admission?: No Disposition Plan Disposition Plan: Discharge Discharge Attestation Discharge Attestation: The patient and all family members were given an opportunity to ask questions and understood the discharge instructions. Discharge instructions specifically effects, indications for sooner follow up or return to the emergency department, and the expected course of current diagnosis. Patient condition: Stable Discharge Plan Plan Patient Disposition: HOME (Self Care) Patient condition on transfer: Stable Health Concerns: - Continue your current medications: Iron tablets and Vitamins - Use Saline spray for nasal stuffiness. - Follow-up with your NURSING INFORMATICS CLINICAL ANALYST outpatient on Sunday - Return to ED if your symptoms worsen Prescriptions/Referrals Prescriptions/Med Rec: No Action docusate sodium [Colace] 100 mg capsule 100 mg PO BID Qty: 60 0RF ferrous sulfate [Feosol] 325 mg (65 mg iron) tablet 325 mg PO QDAY Qty: 30 0RF fluconazole 150 mg tablet 150 mg PO Q3D 0 Days Qty: 2 0RF PNV no.95-ferrous fumarate-FA [] 28 mg iron- 800 mcg tablet 1 tab PO QDAY Problem List Clinical Impression: Anxiety Patient/Caregiver Discharge Instructions Education Materials: Comfort Tips During , Anemia During Print Language: [place] Stand Alone Forms: Norma Award Info., Work/School Release, Patient Portal Info Letter
== END 2025-05-15 05:16 | disposition home or self-care (01) ==
PROVIDERS: Emergency Provider Emergency Medicine; PCP Obstetrics & Gynecology
DX: O99.343 Other mental disorders complicating pregnancy, third trimester (principal); F41.9 Anxiety disorder, unspecified; O99.891 Other specified diseases and conditions complicating pregnancy; R94.31 Abnormal electrocardiogram [ECG] [EKG]; Z3A.35 35 weeks gestation of pregnancy
CPT/HCPCS: 87400; 87811; 93005; 99283

== ENCOUNTER 2025-05-20 15:12 | Outpatient (AMB) | payer BC, SELFPAY ==
[2025-05-20 15:23] VITALS: BP 114/62; PULSE 83; RESP 16; TEMP 36.2; O2SAT 97; BMI 29.0
--- NOTE | 2025-05-20 15:23 | OBCLNT_ITS ---
Vital Signs 05/20/25 15:23 Height 1.6 m Height Method Stated Weight 74.503 kg Weight Measurement Method Standing Scale BMI 29.0 BP 114/62 Blood Pressure Source Automatic Cuff Blood Pressure Location Left Upper Arm Position Sitting Respiration 16 Pulse 83 Pulse Source Monitor Temp 97.2 F Temp Source Oral Pulse Oximetry (%) 97 Oxygen Delivery Method Room Air Allergies/Home Meds Allergies & Medications Allergies latex Allergy (Mild, Verified 05/20/25 15:25) Rash acetaminophen (From Vicodin) Adverse Reaction (Intermediate, Verified 05/20/25 15:25) Nausea amoxicillin (From Augmentin) Adverse Reaction (Intermediate, Verified 05/20/25 15:25) Nausea clavulanic acid (From Augmentin) Adverse Reaction (Intermediate, Verified 05/20/25 15:25) Nausea hydrocodone (From Vicodin) Adverse Reaction (Intermediate, Verified 05/20/25 15:25) Nausea Medication Reconciliation docusate sodium 100 mg capsule (Colace) 100 mg PO BID #60 caps 04/17/25 [Rx Confirmed 05/20/25] ferrous sulfate 325 mg (65 mg iron) tablet (Feosol) 325 mg PO QDAY #30 tabs 04/17/25 [Rx Confirmed 05/20/25] vit no.95-ferrous fumarate 28 mg-folic acid 800 mcg tablet () 1 tab PO QDAY 04/30/25 [History Confirmed 05/20/25] fluconazole 150 mg tablet 150 mg PO Q3D 2 doses #2 tabs 05/12/25 [Rx Confirmed 05/20/25] Intake Visit Data Collection New Patient or Established: Established Patient (seen at [facility] within 3 years) Reason for Visit:: OBC Seen by Clinical Staff ONLY (RN/MA): No Inlayer Required: No Do You Feel Safe at Home: Yes Authorities Contacted: N/A PCP or OBGYN visit in last 3 months: Yes Date of Last PCP or OBGYN visit: 05/15/25 Hx Now: Yes Are you currently on any form of Control: No Pain Present Currently: No Pain Scale Used: [place]-Mirza/Numerical Pain scale:: 0 Smoking Status Smoking Status: Never smoker Questionnaires Covid-19 Vaccine Questionnaire Has patient been vacinated for Covid-19 Have you been vacinated for Covid-19: No PHQ-9 PHQ-2 Over the last 2 weeks, how often have you been bothered by any of the following problems? 1. Little interest or pleasure in doing things: not at all 2. Feeling down, depressed, or hopeless: not at all Total score: 0 PHQ-9 3. Trouble falling or staying asleep, or sleeping too much: Not at all 4. Feeling tired or having little energy: Not at all 5. Poor appetite or overeating: Not at all 6. Feeling bad about yourself - or that you are a failure or have let yourself or your family down: Not at all 7. Trouble concentrating on things, such as reading the newspaper or watching television: Not at all 8. Moving or speaking so slowly that other people could have noticed? - Or the opposite - being so fidgety or restless that you have been moving around a lot more than usual: not at all 9. Thoughts that you would be better off or of hurting yourself in some way: Not at all Total score: 0 If you checked off any problems, how difficult have these problems made it for you to do your work, take care of things at home, or get along with other people?: not difficult at all Source: Developed by Drs. Oliver Arce, Jo Ann Arriaga, Elijah Johnson and colleagues, with an educational johny from [employer]. 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 Past Medical History: No Hx Neurological Disorders, No Hx Hypothyroidism, No Hx Hyperthyroidism, No Hx Breast Cancer, No Hx Cardiac Disorders, No Hx Hypertension, No Hx Cancer, No Hx Blood Disorders, No Hx Anemia, No Hx Gastrointestinal Disorders, No Hx Renal Disease, No Hx Diabetes Mellitus Type 1, No Hx Diabetes Mellitus Type 2 and Yes Hx Polycystic Ovarian Syndrome Care OB Visit Log OB Flowsheet Initial Weight: Not Recorded Date -?-?-?-?-?-?-?-?-?-?-?-?- EGA Weight BP Alb Glu CTX Pres Fundal ht FHR Mov Dilation Station Effacement Hx Notes Visit Note 12/31/24 -?-?-?-?-?-?-?-?-?-?-?-?- 15w 5d 64.07 kg 115/76 145 Patient on light duty. Father baby at bedside. Denies bleeding cramping. Urine protein negative glucose negative 01/28/25 -?-?-?-?-?-?-?-?-?-?-?-?- 19w 5d 68.152 kg 109/68 20 147 142 active Positive movement no bleeding. Patient was in the ER wrist recently about 2 weeks ago with some spotting. They suspected she had a UTI and sent her home on an antibiotic. Her urine culture was negative. 02/06/25 -?-?-?-?-?-?-?-?-?-?-?-?- 21w 0d 68.096 kg 120/78 21 134 active +FM, No VB or LOF. + rash that comes and goes. Extremely itchy 03/19/25 -?-?-?-?-?-?-?-?-?-?-?-?- 26w 6d 71.271 kg 112/71 28 134 active +FM No UCs N o VB Rash is gone, pt has significant pubic bone diastasis, recommended brace. Ordered GCT 04/17/25 -?-?-?-?-?-?-?-?-?-?-?-?- 31w 0d 73.085 kg 108/66 occasional 31 138 active Patient reports good movement no contractions or loss of fluids. She states she feels tired and dizzy. She has occasional headaches. Patient states she does not feel right Sent to OB triag e for further evaluation. 05/06/25 -?-?-?-?-?-?-?-?-?-?-?-?- 33w 5d 74.616 kg 111/70 occasional breech 35 1 45 active Good movement. Went to triage 04/30/2025 rule out labor. fibronectin negative. Unsure whether she wants to go off work. Will write a note for the end of the month. Sign tubal ligation papers in case she needs a . 05/20/25 -?-?-?-?-?-?-?-?-?-?-?-?- 35w 5d 74.503 kg 114/62 occasional unknown 36 156 active 0 -3 Good movement occasional contractions no loss of fluids Was in triage 04/30/2025 fibronectin negative. ELVA Calculator Estimated Delivery Date Method Current WG Current Estimate 06/19/25 Ultrasound #1 35w 5d Other Estimates 06/15/25 LMP (Certain) 36w 2d Expected Delivery Route/Plan Anticipate labs drawn at [facility] B+/ antibody negative/ hepatitis B surface antigen negative/ rubella immune /HIV negative. No RPR drawn. No urine culture drawn. No GC chlamydia drawn. Will add these labs. Had level [address] Matthew and has follow-up. No report on chart. Will try to find this report. Specific Issue/Plans AMA, on baby aspirin. Normal NIPT. Will order level 2 ultrasound. Works as a [employer]. On light duty. New father the baby this . Patient has 2 children of her own he has 3 children of his own. Multiple medical allergies Notes Visit Date: 05/20/25 Last Updated by: Sara Frey (OB Clinic)MD Off work 05/27/2025 note given. Group B strep done. Cervix closed thick and high. Unsure what position baby is in. Baby was breech 2 weeks ago. Visit Date: 05/06/25 Last Updated by: Sara Frey (OB Clinic)MD Patient saw Dr. Matthew 05/04/2025 baby was breech. 78th percentile. Abdominal circumference large. Plan will be to repeat an ultrasound in 3 to 4 weeks. Patient signed tubal ligation papers today if she needs a Visit Date: 04/17/25 Last Updated by: Sara Frey (OB Clinic)MD Patient states she was in triage about a week ago she was closed they check her urine and it was negative. She has not gotten that belly band. We did discuss tubal ligation if she needs a and she would like papers to be signed. Visit Date: 03/19/25 Last Updated by: Sara Frey (OB Clinic)MD Had Level II US with Dr Fodson Visit Date: 02/06/25 Last Updated by: Sara Frey (OB Clinic)MD No signs of PUPPS or a significant rash. Benadryl. Zyrtec. Consider a medrol dose pack. Check LFTS and Bile acids. Discussed cholestasis. Pt extremely anxious Visit Date: 01/28/25 Last Updated by: Sara Frey (OB Clinic)MD Patient was in the ER 2 weeks ago. Some spotting. They diagnosed her with a bladder infection and she is finishing her antibiotics. Of note her urine culture was negative. She reports some pain in her abdomen. 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 Visit Date: 12/31/24 Last Updated by: Sara Frey (OB Clinic)MD Patient employed as a [employer]. [employer] 06/18/2024. She is a 39-year-old -0-0-2. Her son Hank is 8, her daughter Snehal is 9. The father the baby is a surveillance sensor officer and has 3 children of his own. Office Procedures OBC Clinic LOC & Office Proc's Nursing/Assessment Patient Status: Established Patient OB Clinic Nursing Assessment: Medication Reconciliation, Update PMH in EMR and Vital Signs OB Clinic Coordination of Care: Education Complex Pt/Fam, Consent,records obtained, informed consent, Lab and Imaging orders, Results/Orders obtained and Staff clarify orders Special Needs: Heart tones Established Patient Charge Established Patient Point Assignment: 115 Established Patient Point Charge: EP Level 3 (80-115) Assessment & Plan Diagnosis / Problem List (1) Advanced maternal age (AMA), 40 years or greater: Status: Acute Plan: Normal level 2 ultrasound and NIPT (2) : Status: Acute Qualifiers: Weeks of gestation: 35 weeks Qualified Code(s): Z3A.35 - 35 weeks gestation of
== END 2025-05-20 16:22 | disposition home or self-care (01) ==
LOC: HODSOBC 15:12
PROVIDERS: Supervising Provider Obstetrics & Gynecology; Visit Provider Obstetrics & Gynecology
DX: O09.523 Supervision of elderly multigravida, third trimester (principal); Z3A.40 40 weeks gestation of pregnancy; Z36.85 Encounter for antenatal screening for Streptococcus B; Z91.040 Latex allergy status; Z88.6 Allergy status to analgesic agent; Z88.5 Allergy status to narcotic agent
CPT/HCPCS: 99213; G0463

== ENCOUNTER 2025-05-25 15:30 | Outpatient (AMB) | payer BC, SELFPAY ==
[2025-05-25 15:52] VITALS: BP 113/66; PULSE 82; RESP 16; TEMP 36.3; O2SAT 97; BMI 29.6
--- NOTE | 2025-05-25 15:52 | OBCLNT_ITS ---
Vital Signs 05/25/25 15:52 Height 1.6 m Height Method Stated Weight 75.807 kg Weight Measurement Method Standing Scale BMI 29.6 BP 113/66 Blood Pressure Source Automatic Cuff Blood Pressure Location Left Upper Arm Position Sitting Respiration 16 Pulse 82 Pulse Source Monitor Temp 97.4 F Temp Source Oral Pulse Oximetry (%) 97 Oxygen Delivery Method Room Air Allergies/Home Meds Allergies & Medications Allergies latex Allergy (Mild, Verified 05/25/25 15:54) Rash acetaminophen (From Vicodin) Adverse Reaction (Intermediate, Verified 05/25/25 15:54) Nausea amoxicillin (From Augmentin) Adverse Reaction (Intermediate, Verified 05/25/25 15:54) Nausea clavulanic acid (From Augmentin) Adverse Reaction (Intermediate, Verified 05/25/25 15:54) Nausea hydrocodone (From Vicodin) Adverse Reaction (Intermediate, Verified 05/25/25 15:54) Nausea Medication Reconciliation docusate sodium 100 mg capsule (Colace) 100 mg PO BID #60 caps 04/17/25 [Rx Confirmed 05/25/25] ferrous sulfate 325 mg (65 mg iron) tablet (Feosol) 325 mg PO QDAY #30 tabs 04/17/25 [Rx Confirmed 05/25/25] vit no.95-ferrous fumarate 28 mg-folic acid 800 mcg tablet () 1 tab PO QDAY 04/30/25 [History Confirmed 05/25/25] fluconazole 150 mg tablet 150 mg PO Q3D 2 doses #2 tabs 05/12/25 [Rx Confirmed 05/25/25] Intake Visit Data Collection New Patient or Established: Established Patient (seen at [facility] within 3 years) Reason for Visit:: care Seen by Clinical Staff ONLY (RN/MA): No Interventional Nurse Required: No Do You Feel Safe at Home: Yes Authorities Contacted: N/A PCP or OBGYN visit in last 3 months: Yes Hx Now: Yes Are you currently on any form of Control: No Pain Present Currently: No Pain Scale Used: [place]-Mirza/Numerical Pain scale:: 0 Smoking Status Smoking Status: Never smoker Questionnaires Covid-19 Vaccine Questionnaire Has patient been vacinated for Covid-19 Have you been vacinated for Covid-19: Yes PHQ-9 PHQ-2 Over the last 2 weeks, how often have you been bothered by any of the following problems? 1. Little interest or pleasure in doing things: not at all 2. Feeling down, depressed, or hopeless: not at all Total score: 0 PHQ-9 3. Trouble falling or staying asleep, or sleeping too much: Not at all 4. Feeling tired or having little energy: Not at all 5. Poor appetite or overeating: Not at all 6. Feeling bad about yourself - or that you are a failure or have let yourself or your family down: Not at all 7. Trouble concentrating on things, such as reading the newspaper or watching television: Not at all 8. Moving or speaking so slowly that other people could have noticed? - Or the opposite - being so fidgety or restless that you have been moving around a lot more than usual: not at all 9. Thoughts that you would be better off or of hurting yourself in some way: Not at all Total score: 0 Source: Developed by Drs. Oliver Arce, Jo Ann Arriaga, Elijah Johnson and colleagues, with an educational johny from [employer]. Depression screen completed yes Social History Living Situation History Lives With: Family Housing: House Housing Other:: Works as a [employer], 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 Past Medical History: No Hx Neurological Disorders, No Hx Hypothyroidism, No Hx Hyperthyroidism, No Hx Breast Cancer, No Hx Cardiac Disorders, No Hx Hypertension, No Hx Cancer, No Hx Blood Disorders, No Hx Anemia, No Hx Gastrointestinal Disorders, No Hx Renal Disease, No Hx Diabetes Mellitus Type 1, No Hx Diabetes Mellitus Type 2 and Yes Hx Polycystic Ovarian Syndrome Care OB Visit Log OB Flowsheet Initial Weight: Not Recorded Date -?-?-?-?-?-?-?-?-?-?-?-?- EGA Weight BP Alb Glu CTX Pres Fundal ht FHR Mov Dilation Station Effacement Hx Notes Visit Note 12/31/24 -?-?-?-?-?-?-?-?-?-?-?-?- 15w 5d 64.07 kg 115/76 145 Patient on light duty. Father baby at bedside. Denies bleeding cramping. Urine protein negative glucose negative 01/28/25 -?-?-?-?-?-?-?-?-?-?-?-?- 19w 5d 68.152 kg 109/68 20 147 142 active Positive movement no bleeding. Patient was in the ER wrist recently about 2 weeks ago with some spotting. They suspected she had a UTI and sent her home on an antibiotic. Her urine culture was negative. 02/06/25 -?-?-?-?-?-?-?-?-?-?-?-?- 21w 0d 68.096 kg 120/78 21 134 active +FM, No VB or LOF. + rash that c omes and goes. Extremely itchy 03/19/25 -?-?-?-?-?-?-?-?-?-?-?-?- 26w 6d 71.271 kg 112/71 28 134 active +FM No UCs N o VB Rash is gone, pt has significant pubic bone diastasis, recommended brace. Ordered GCT 04/17/25 -?-?-?-?-?-?-?-?-?-?-?-?- 31w 0d 73.085 kg 108/66 occasional 31 138 active Patient reports good movement no contractions or loss of fluids. She states she feels tired and dizzy. She has occasional headaches. Patient states she does not feel right Sent to OB tri e for further evaluation. 05/06/25 -?-?-?-?-?-?-?-?-?-?-?-?- 33w 5d 74.616 kg 111/70 occasional breech 35 1 45 active Good movement. Went to triage 04/30/2025 rule out labor. fibronectin negative. Unsure whether she wants to go off work. Will write a note for the end of the month. Sign tubal ligation papers in case she needs a . 05/20/25 -?-?-?-?-?-?-?-?-?-?-?-?- 35w 5d 74.503 kg 114/62 occasional unknown 36 156 active 0 -3 Good movement occasional contractions no loss of fluids Was in triage 04/30/2025 fibronectin negative. 05/25/25 -?-?-?-?-?-?-?-?-?-?-?-?- 36w 3d 75.807 kg 113/66 occasional cephalic 36 134 active 1 -3 70 movement no contractions no loss of fluids Patient feels pressure ELVA Calculator Estimated Delivery Date Method Current WG Current Estimate 06/19/25 Ultrasound #1 36w 3d Other Estimates 06/15/25 LMP (Certain) 37w 0d Expected Delivery Route/Plan Anticipate labs drawn at [facility] B+/ antibody negative/ hepatitis B surface antigen negative/ rubella immune /HIV negative. No RPR drawn. No urine culture drawn. No GC chlamydia drawn. Will add these labs. Had normal level [address] Matthew and has follow-up. Specific Issue/Plans AMA, on baby aspirin. Normal NIPT. Will order level 2 ultrasound. Works as a [employer]. On light duty. New father the baby this . Patient has 2 children of her own he has 3 children of his own. Multiple medical allergies Notes Visit Date: 05/25/25 Last Updated by: Sara Frey (OB Clinic)MD Group B strep negative baby vertex on ultrasound. To L&D for NST for AMA. Authorized for twice weekly NSTs /BPP's Visit Date: 05/20/25 Last Updated by: Sara Frey ([facility] Clinic)MD Off work 05/27/2025 note given. Group B strep done. Cervix closed thick and high. Unsure what position b josue is in. Baby was breech 2 weeks ago. Visit Date: 05/06/25 Last Updated by: Sara Frey ([facility] Clinic)MD Patient saw Dr. Matthew 05/04/2025 baby was breech. 78th percentile. Abdominal circumference large. Plan will be to repeat an ultrasound in 3 to 4 weeks. Patient signed tubal ligation papers today if she needs a Visit Date: 04/17/25 Last Updated by: Sara Frey (OB Clinic)MD Patient states she was in triage about a week ago she was closed they check her urine and it was negative. She has not gotten that belly band. We did discuss tubal ligation if she needs a and she would like papers to be signed. Visit Date: 03/19/25 Last Updated by: Sara Frey ([facility] Clinic)MD Had Level II US with Dr Kahn Visit Date: 02/06/25 Last Updated by: Sara Frey ([facility] Clinic)MD No signs of PUPPS or a significant rash. Benadryl. Zyrtec. Consider a medrol dose pack. Check LFTS and Bile acids. Discussed cholestasis. Pt extremely anxious Visit Date: 01/28/25 Last Updated by: Sara Frey ([facility] Clinic)MD Patient was in the ER 2 weeks ago. Some spotting. They diagnosed her with a bladder infection and she is finishing her antibiotics. Of note her urine culture was negative. She reports some pain in her abdomen. 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 Visit Date: 12/31/24 Last Updated by: Sara Frey (OB Clinic)MD Patient employed as a [employer]. [employer] 06/18/2024. She is a 39-year-old -0-0-2. Her son Hank is 8, her daughter Snehal is 9. The father the baby is a marketing officer and has 3 children of his own. Office Procedures OBC Clinic LOC & Office Proc's Nursing/Assessment Patient Status: Established Patient OB Clinic Nursing Assessment: Medication Reconciliation, Update PMH in EMR and Vital Signs OB Clinic Coordination of Care: AMA, Complex Care and Chronic Disease 1-5, Consent,records obtained, informed consent, Education Simp Pt/Fam, Lab and Imaging orders, Results/Orders obtained and Staff clarify orders Special Needs: Heart tones Miscellaneous Interventions: Pelvic no cultures Established Patient Charge Established Patient Point Assignment: 165 Established Patient Point Charge: EP Level 5 (160-above) Assessment & Plan Diagnosis / Problem List (1) Advanced maternal age (AMA), 40 years or greater: Status: Acute Plan: Normal NIPT normal level 2 ultrasound will schedule NST BPP's (2) : Status: Acute Qualifiers: Weeks of gestation: 36 weeks Qualified Code(s): Z3A.36 - 36 weeks gestation of
== END 2025-05-25 16:13 | disposition home or self-care (01) ==
LOC: HODSOBC 15:30
PROVIDERS: Supervising Provider Obstetrics & Gynecology; Visit Provider Obstetrics & Gynecology
DX: O09.523 Supervision of elderly multigravida, third trimester (principal); Z3A.36 36 weeks gestation of pregnancy; Z88.6 Allergy status to analgesic agent; Z88.5 Allergy status to narcotic agent; Z88.0 Allergy status to penicillin; Z91.040 Latex allergy status
CPT/HCPCS: 99214; 99215; G0463

== ENCOUNTER 2025-05-25 17:08 | Observation (INO) | payer BC, SELFPAY ==
[2025-05-25] VITALS (7 sets, daily range): BP systolic 113; BP diastolic 58–68; PULSE 82–92; RESP 18–97; TEMP 36.8; O2SAT 95–97; BMI 29.7
--- NOTE | 2025-05-25 17:36 | XR_ITS ---
Examination: Complete OB ultrasound greater than 14 weeks Date and time of exam: May 25, 2025, 1805 hrs. Indications: Unknown weight, unknown amniotic fluid index, supervision of otherwise normal Findings: Viable intrauterine single fetus with single amniotic sac presentation cephalic Cardiac motion 164 BPM Placenta fundal left lateral grade 2 Umbilical cord insertion 3 vessel seen Amniotic fluid index 13.5 cm spine maternal right Cervix 3.2 cm Ovaries obscured by bowel gas. Composite estimated gestational age based on BPD, head circumference, abdominal circumference, femur length is 37 weeks 0 days Estimated weight 3095 g. Survey of intracranial anatomy, spinal anatomy, abdominal anatomy, four-chamber heart performed with no abnormalities identified. Impression: Viable intrauterine gestation cephalic presentation.
== END 2025-05-25 19:25 | disposition home or self-care (01) ==
PROVIDERS: Admitting Provider Obstetrics & Gynecology; Visit Provider Obstetrics & Gynecology
DX: Z34.83 Encounter for supervision of other normal pregnancy, third trimester (principal); Z3A.36 36 weeks gestation of pregnancy
CPT/HCPCS: 59025; 59899; 76805

== ENCOUNTER 2025-05-29 17:32 | Observation (INO) | payer BC, SELFPAY ==
[2025-05-29] VITALS (14 sets, daily range): BP systolic 109; BP diastolic 58; PULSE 80–93; RESP 17–99; TEMP 37.1; O2SAT 94–99; BMI 29.5
[2025-05-29 18:36] LABS: ROM Kit Exp Date# 01/18/28; ROM Kit Lot # 58104371; ROM Swab Mixed By: CU; Swb Mxed in Solvent 1 min? Yes
[2025-05-29 18:38] LABS: Rupture of Fetal Membranes Negative (Negative)
== END 2025-05-29 18:55 | disposition home or self-care (01) ==
PROVIDERS: Admitting Provider Obstetrics & Gynecology; Visit Provider Obstetrics & Gynecology
DX: O47.1 False labor at or after 37 completed weeks of gestation (principal); Z3A.37 37 weeks gestation of pregnancy
CPT/HCPCS: 59025; 59899; 84112

== ENCOUNTER 2025-06-03 15:10 | Outpatient (AMB) | payer BC, SELFPAY ==
--- NOTE | 2025-06-03 14:42 | AMB.OBVISIT ---
Vital Signs 06/03/25 14:52 Height 1.6 m Height Method Stated Weight 75.523 kg Weight Measurement Method Standing Scale BMI 29.5 BP 128/69 Blood Pressure Source Automatic Cuff Blood Pressure Location Left Upper Arm Position Sitting Respiration 16 Pulse 94 Pulse Source Monitor Temp 97.2 F Temp Source Oral Pulse Oximetry (%) 99 Oxygen Delivery Method Room Air Allergies/Home Meds Allergies & Medications Allergies latex Allergy (Mild, Verified 06/03/25 14:43) Rash acetaminophen (From Vicodin) Adverse Reaction (Intermediate, Verified 06/03/25 14:43) Nausea amoxicillin (From Augmentin) Adverse Reaction (Intermediate, Verified 06/03/25 14:43) Nausea clavulanic acid (From Augmentin) Adverse Reaction (Intermediate, Verified 06/03/25 14:43) Nausea hydrocodone (From Vicodin) Adverse Reaction (Intermediate, Verified 06/03/25 14:43) Nausea Medication Reconciliation docusate sodium 100 mg capsule (Colace) 100 mg PO BID #60 caps 04/17/25 [Rx Confirmed 06/03/25] ferrous sulfate 325 mg (65 mg iron) tablet (Feosol) 325 mg PO QDAY #30 tabs 04/17/25 [Rx Confirmed 06/03/25] vit no.95-ferrous fumarate 28 mg-folic acid 800 mcg tablet () 1 tab PO QDAY 04/30/25 [History Confirmed 06/03/25] Intake Visit Data Collection New Patient or Established: Established Patient (seen at [facility] within 3 years) Reason for Visit:: C Seen by Clinical Staff ONLY (RN/MA): No Superintendent Nonselling Required: No Do You Feel Safe at Home: Yes Authorities Contacted: N/A PCP or OBGYN visit in last 3 months: Yes Date of Last PCP or OBGYN visit: 05/29/25 Hx Now: Yes Are you currently on any form of Control: No Pain Present Currently: No Pain Scale Used: [place]-Mirza/Numerical Pain scale:: 0 Smoking Status Smoking Status: Never smoker Questionnaires Covid-19 Vaccine Questionnaire Has patient been vacinated for Covid-19 Have you been vacinated for Covid-19: Yes PHQ-9 PHQ-2 Over the last 2 weeks, how often have you been bothered by any of the following problems? 1. Little interest or pleasure in doing things: not at all 2. Feeling down, depressed, or hopeless: not at all Total score: 0 PHQ-9 3. Trouble falling or staying asleep, or sleeping too much: Not at all 4. Feeling tired or having little energy: Not at all 5. Poor appetite or overeating: Not at all 6. Feeling bad about yourself - or that you are a failure or have let yourself or your family down: Not at all 7. Trouble concentrating on things, such as reading the newspaper or watching television: Not at all 8. Moving or speaking so slowly that other people could have noticed? - Or the opposite - being so fidgety or restless that you have been moving around a lot more than usual: not at all 9. Thoughts that you would be better off or of hurting yourself in some way: Not at all Total score: 0 If you checked off any problems, how difficult have these problems made it for you to do your work, take care of things at home, or get along with other people?: not difficult at all Source: Developed by Drs. Oliver Arce, Jo Ann Arriaga, Elijah Johnson and colleagues, with an educational johny from [employer]. Depression screen completed yes Social History Living Situation History Marital Status: Single Lives With: Family Housing: House Housing Other:: Works as a [employer], 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 Past Medical History: No Hx Neurological Disorders, No Hx Hypothyroidism, No Hx Hyperthyroidism, No Hx Breast Cancer, No Hx Cardiac Disorders, No Hx Hypertension, No Hx Cancer, No Hx Blood Disorders, No Hx Anemia, No Hx Gastrointestinal Disorders, No Hx Renal Disease, No Hx Diabetes Mellitus Type 1, No Hx Diabetes Mellitus Type 2 and Yes Hx Polycystic Ovarian Syndrome Care OB Visit Log OB Flowsheet Initial Weight: Not Recorded Date <del>?</del> EGA Weight BP Alb Glu CTX Pres Fundal ht FHR Mov Dilation Station Effacement Hx Notes Visit Note 12/31/24 <del>?</del> 15w 5d 64.07 kg 115/76 145 Patient on light duty. Father baby at bedside. Denies bleeding cramping. Urine protein negative glucose negative 01/28/25 <del>?</del> 19w 5d 68.152 kg 109/68 20 147 142 active Positive movement no bleeding. Patient was in the ER wrist recently about 2 weeks ago with some spotting. They suspected she had a UTI and sent her home on an antibiotic. Her urine culture was negative. 02/06/25 <del>?</del> 21w 0d 68.096 kg 120/78 21 134 active +FM, No VB or LOF. + rash that comes and goes. Extremely itchy 03/19/25 <del>?</del> 26w 6d 71.271 kg 112/71 28 134 active +FM No UCs No VB Rash is gone, pt has significant pubic bone diastasis, recommended brace. Ordered GCT 04/17/25 <del>?</del> 31w 0d 73.085 kg 108/66 occasional 31 138 active Patient reports good movement no contractions or loss of fluids. She states she feels tired and dizzy. She has occasional headaches. Patient states she does not feel right Sent to OB triage for further evaluation. 05/06/25 <del>?</del> 33w 5d 74.616 kg 111/70 occasional breech 35 145 active Good movement. Went to triage 04/30/2025 rule out labor. fibronectin negative. Unsure whether she wants to go off work. Will write a note for the end of the month. Sign tubal ligation papers in case she needs a . 05/20/25 <del>?</del> 35w 5d 74.503 kg 114/62 occasional unknown 36 156 active 0 -3 Good movement occasional contractions no loss of fluids Was in triage 04/30/2025 fibronectin negative. 05/25/25 <del>?</del> 36w 3d 75.807 kg 113/66 occasional cephalic 36 134 active 1 -3 70 movement no contractions no loss of fluids Patient feels pressure 06/03/25 <del>?</del> 37w 5d 75.523 kg 128/69 occasional cephalic 36 145 active Good movement no contractions positive pressure No loss of fluids. Reports some dysuria. Going to the hospital tomorrow for NST ELVA Calculator Estimated Delivery Date Method Current WG Current Estimate 06/19/25 Ultrasound #1 37w 5d Other Estimates 06/15/25 LMP (Certain) 38w 2d Expected Delivery Route/Plan Anticipate labs drawn at [facility] B+/ antibody negative/ hepatitis B surface antigen negative/ rubella immune /HIV negative. No RPR drawn. No urine culture drawn. No GC chlamydia drawn. Will add these labs. Had normal level [address] Matthew and has follow-up. Specific Issue/Plans AMA, on baby aspirin. Normal NIPT. Will order level 2 ultrasound. Works as a [employer]. On light duty. New father the baby this . Patient has 2 children of her own he has 3 children of his own. Multiple medical allergies Notes Visit Date: 06/03/25 Last Updated by: Sara Frey ([facility])MD Recommend weight tomorrow NST BPP and urinalysis in triage to check for possible bladder infection. Visit Date: 05/25/25 Last Updated by: Sara Frey ([facility])MD Group B strep negative baby vertex on ultrasound. To L&D for NST for AMA. Authorized for twice weekly NSTs /BPP's Visit Date: 05/20/25 Last Updated by: Sara Frey ([facility])MD Off work 05/27/2025 note given. Group B strep done. Cervix closed thick and high. Unsure what position baby is in. Baby was breech 2 weeks ago. Visit Date: 05/06/25 Last Updated by: Sara Frey ([facility])MD Patient saw Dr. Matthew 05/04/2025 baby was breech. 78th percentile. Abdominal circumference large. Plan will be to repeat an ultrasound in 3 to 4 weeks. Patient signed tubal ligation papers today if she needs a Visit Date: 04/17/25 Last Updated by: Sara Frey ([facility])MD Patient states she was in triage about a week ago she was closed they check her urine and it was negative. She has not gotten that belly band. We did discuss tubal ligation if she needs a and she would like papers to be signed. Visit Date: 03/19/25 Last Updated by: Sara Frey ([facility])MD Had Level II US with Dr Kahn Visit Date: 02/06/25 Last Updated by: Sara Frey ([facility])MD No signs of PUPPS or a significant rash. Benadryl. Zyrtec. Consider a medrol dose pack. Check LFTS and Bile acids. Discussed cholestasis. Pt extremely anxious Visit Date: 01/28/25 Last Updated by: Sara Frey ([facility])MD Patient was in the ER 2 weeks ago. Some spotting. They diagnosed her with a bladder infection and she is finishing her antibiotics. Of note her urine culture was negative. She reports some pain in her abdomen. 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 Visit Date: 12/31/24 Last Updated by: Sara Frey ([facility])MD Patient employed as a [employer]. [facility] 06/18/2024. She is a 39-year-old -0-0-2. Her son Hank is 8, her daughter Snehal is 9. The father the baby is a chief procurement officer and has 3 children of his own. Office Procedures OBC Clinic LOC & Office Proc's Nursing/Assessment Patient Status: Established Patient OB Clinic Nursing Assessment: Medication Reconciliation, Update PMH in EMR and Vital Signs OB Clinic Coordination of Care: Education Complex Pt/Fam, Lab and Imaging orders, Results/Orders obtained and Staff clarify orders Special Needs: Heart tones Established Patient Charge Established Patient Point Assignment: 110 Established Patient Point Charge: EP Level 3 (80-115) Assessment & Plan Diagnosis / Problem List (1) Advanced maternal age (AMA), 40 years or greater: Status: Acute (2) : Status: Acute Qualifiers: Weeks of gestation: 37 weeks Qualified Code(s): Z3A.37 - 37 weeks gestation of Additional Plan Follow Up: 1 Week
[2025-06-03 14:52] VITALS: BP 128/69; PULSE 94; RESP 16; TEMP 36.2; O2SAT 99; BMI 29.5
== END 2025-06-03 16:02 | disposition home or self-care (01) ==
LOC: HODSOBC 15:10
PROVIDERS: Supervising Provider Obstetrics & Gynecology; Visit Provider Obstetrics & Gynecology
DX: O09.523 Supervision of elderly multigravida, third trimester (principal); Z3A.37 37 weeks gestation of pregnancy; Z91.040 Latex allergy status; Z88.5 Allergy status to narcotic agent; Z88.0 Allergy status to penicillin
CPT/HCPCS: 99213; G0463

== ENCOUNTER 2025-06-04 12:35 | Outpatient (CLI) | payer BC, SELFPAY ==
--- NOTE | 2025-06-04 12:40 | XR_ITS ---
Examination: Complete OB ultrasound greater than 14 weeks Date and time of exam: June 04, 2025, 1304 hours INDICATIONS: Diagnosis advanced maternal age Findings: Viable intrauterine single fetus with single amniotic sac presentation cephalic Cardiac motion 124 bpm Placenta anterior grade 2 Umbilical cord insertion and three-vessel seen. Amniotic fluid index 9.9 cm spine maternal right. Cervix 3.6 cm Ovaries obscured by bowel gas. Composite estimated gestational age based on BPD, head circumference, abdominal circumference, femur length is 37 weeks 4 days Estimated weight 3264 g. Survey of intracranial anatomy, spinal anatomy, abdominal anatomy, four-chamber heart performed with no abnormalities identified. Impression: Viable intrauterine gestation cephalic presentation.
[2025-06-04 12:50] VITALS: BP 123/57; PULSE 94; PULSE 95; PULSE 96; RESP 18; RESP 98; TEMP 36.4; O2SAT 97
[2025-06-04 12:55] VITALS: PULSE 89; O2SAT 97
[2025-06-04 13:00] VITALS: PULSE 94; O2SAT 96
[2025-06-04 13:05] VITALS: PULSE 93; O2SAT 95
[2025-06-04 13:20] LABS: Collection Type, Urine Clean Catch
[2025-06-04 13:49] LABS: Bacteria,Urine 1+; Bilirubin,Urine Negative (Negative); Blood,Urine Negative (Negative); Clarity,Urine Turbid (Clear/Hazy); Color,Urine Lt-Yellow (Lt Yel-Yel); Glucose, Urine Negative (Negative); Ketones,Urine Negative (Negative); Leukocyte Esterase,Urine Positive (Negative); Nitrite,Urine Negative (Negative); PH,Urine 7.0 (5.0-7.0); Protein,Urine Trace (Neg - Trace); RBC,Urine 9 /hpf (0-3); Specific Gravity,Urine 1.014 (1.001-1.035); Squamous Epithelial Cell,Urine 22 /hpf (0-5); Urobilinogen,Urine Negative mg/dL (0.0-1.0); WBC,Urine 19 /hpf (0-5)
[2025-06-04 16:55] LABS: Chlamydia trachomatis PCR Negative (Not Detect); Neisseria Gonorrhoeae DNA PCR Negative (Not Detect); Trichomonas Negative (Negative)
== END 2025-06-04 15:10 | disposition home or self-care (01) ==
LOC: S4S1 12:37 → S4SX 12:37
PROVIDERS: Referring Provider Obstetrics & Gynecology; Visit Provider Obstetrics & Gynecology
DX: Z34.83 Encounter for supervision of other normal pregnancy, third trimester (principal); Z36.9 Encounter for antenatal screening, unspecified; Z3A.37 37 weeks gestation of pregnancy
CPT/HCPCS: 59025; 76805; 81001; 87491; 87591; 87661

== ENCOUNTER 2025-06-12 14:38 | Outpatient (AMB) | payer BC, SELFPAY ==
[2025-06-12 14:52] VITALS: BP 105/66; PULSE 90; RESP 18; TEMP 36.4; O2SAT 97; BMI 29.9
--- NOTE | 2025-06-12 14:52 | OBCLNT_ITS ---
Vital Signs 06/12/25 14:52 Height 1.6 m Height Method Stated Weight 76.827 kg Weight Measurement Method Standing Scale BMI 29.9 BP 105/66 Blood Pressure Source Automatic Cuff Blood Pressure Location Left Upper Arm Position Sitting Respiration 18 Pulse 90 Pulse Source Monitor Temp 97.5 F Temp Source Oral Pulse Oximetry (%) 97 Oxygen Delivery Method Room Air Allergies/Home Meds Allergies & Medications Allergies latex Allergy (Mild, Verified 06/12/25 14:53) Rash acetaminophen (From Vicodin) Adverse Reaction (Intermediate, Verified 06/12/25 14:53) Nausea amoxicillin (From Augmentin) Adverse Reaction (Intermediate, Verified 06/12/25 14:53) Nausea clavulanic acid (From Augmentin) Adverse Reaction (Intermediate, Verified 06/12/25 14:53) Nausea hydrocodone (From Vicodin) Adverse Reaction (Intermediate, Verified 06/12/25 14:53) Nausea Medication Reconciliation docusate sodium 100 mg capsule (Colace) 100 mg PO BID #60 caps 04/17/25 [Rx Confirmed 06/12/25] vit no.95-ferrous fumarate 28 mg-folic acid 800 mcg tablet () 1 tab PO QDAY 04/30/25 [History Confirmed 06/12/25] ferrous sulfate 325 mg (65 mg iron) tablet (Feosol) 325 mg PO QDAY #30 tabs 06/03/25 [Rx Confirmed 06/12/25] Intake Visit Data Collection New Patient or Established: Established Patient (seen at [facility] within 3 years) Reason for Visit:: CARE Seen by Clinical Staff ONLY (RN/MA): No Top Cutter Required: No Do You Feel Safe at Home: Yes Authorities Contacted: N/A PCP or OBGYN visit in last 3 months: Yes Hx Now: Yes Are you currently on any form of Control: No Pain Present Currently: Yes Pain Location: Back Pain Scale Used: [place]-Mirza/Numerical Pain scale:: 7 Smoking Status Smoking Status: Never smoker Questionnaires Covid-19 Vaccine Questionnaire Has patient been vacinated for Covid-19 Have you been vacinated for Covid-19: Yes PHQ-9 PHQ-2 Over the last 2 weeks, how often have you been bothered by any of the following problems? 1. Little interest or pleasure in doing things: not at all 2. Feeling down, depressed, or hopeless: not at all Total score: 0 PHQ-9 3. Trouble falling or staying asleep, or sleeping too much: Not at all 4. Feeling tired or having little energy: Not at all 5. Poor appetite or overeating: Not at all 6. Feeling bad about yourself - or that you are a failure or have let yourself or your family down: Not at all 7. Trouble concentrating on things, such as reading the newspaper or watching television: Not at all 8. Moving or speaking so slowly that other people could have noticed? - Or the opposite - being so fidgety or restless that you have been moving around a lot more than usual: not at all 9. Thoughts that you would be better off or of hurting yourself in some way: Not at all Total score: 0 Source: Developed by Drs. Oliver Arce, Jo Ann Arriaga, Elijah Johnson and colleagues, with an educational johny from [employer]. Depression screen completed yes Social History Living Situation History Lives With: Family Housing: House Housing Other:: Works as a [employer], 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 Past Medical History: No Hx Neurological Disorders, No Hx Hypothyroidism, No Hx Hyperthyroidism, No Hx Breast Cancer, No Hx Cardiac Disorders, No Hx Hypertension, No Hx Cancer, No Hx Blood Disorders, No Hx Anemia, No Hx Gastrointestinal Disorders, No Hx Renal Disease, No Hx Diabetes Mellitus Type 1, No Hx Diabetes Mellitus Type 2 and Yes Hx Polycystic Ovarian Syndrome Care OB Visit Log OB Flowsheet Initial Weight: Not Recorded Date -?-?-?-?-?-?-?-?-?-?-?-?- EGA Weight BP Alb Glu CTX Pres Fundal ht FHR Mov Dilation Station Effacement Hx Notes Visit Note 12/31/24 -?-?-?-?-?-?-?-?-?-?-?-?- 15w 5d 64.07 kg 115/76 145 Patient on light duty. Father baby at bedside. Denies bleeding cramping. Urine protein negative glucose negative 01/28/25 -?-?-?-?-?-?-?-?-?-?-?-?- 19w 5d 68.152 kg 109/68 20 147 142 active Positive movement no bleeding. Patient was in the ER wrist recently about 2 weeks ago with some spotting. They suspected she had a UTI and sent her home on an antibiotic. Her urine culture was negative. 02/06/25 -?-?-?-?-?-?-?-?-?-?-?-?- 21w 0d 68.096 kg 120/78 21 134 active +FM, No VB or LOF. + rash that comes and goes. Extremely itchy 03/19/25 -?-?-?-?-?-?-?-?-?-?-?-?- 26w 6d 71.271 kg 112/71 28 134 active +FM No UCs N o VB Rash is gone, pt has significant pubic bone diastasis, recommended brace. Ordered GCT 04/17/25 -?-?-?-?-?-?-?-?-?-?-?-?- 31w 0d 73.085 kg 108/66 occasional 31 138 active Patient reports good movement no contractions or loss of fluids. She states she feels tired and dizzy. She has occasional headaches. Patient states she does not feel right Sent to OB [facility] for further evaluation. 05/06/25 -?-?-?-?-?-?-?-?-?-?-?-?- 33w 5d 74.616 kg 111/70 occasional breech 35 1 45 active Good movement. Went to triage 04/30/2025 rule out labor. fibronectin negative. Unsure whether she wants to go off work. Will write a note for the end of the month. Sign tubal ligation papers in case she needs a . 05/20/25 -?-?-?-?-?-?-?-?-?-?-?-?- 35w 5d 74.503 kg 114/62 occasional unknown 36 156 active 0 -3 Good movement occasional contractions no loss of fluids Was in triage 04/30/2025 fibronectin negative. 05/25/25 -?-?-?-?-?-?-?-?-?-?-?-?- 36w 3d 75.807 kg 113/66 occasional cephalic 36 134 active 1 -3 70 movement no contractions no loss of fluids Patient feels pressure 06/03/25 -?-?-?-?-?-?-?-?-?-?-?-?- 37w 5d 75.523 kg 128/69 occasional cephalic 36 145 active Good movement no contractions positive pressure No loss of fluids. Reports some dysuria. Going to the hospital tomorrow for NST 06/12/25 -?-?-?-?-?-?-?-?-?-?-?-?- 39w 0d 76.827 kg 105/66 occasional cephalic 38 137 active 1 -3 60 Good movement no contractions no loss of fluids Induction of labor 06/19/2025 if no baby. ELVA Calculator Estimated Delivery Date Method Current WG Current Estimate 06/19/25 Ultrasound #1 39w 0d Other Estimates 06/15/25 LMP (Certain) 39w 4d Expected Delivery Route/Plan Anticipate labs drawn at [facility] B+/ antibody negative/ hepatitis B surface antigen negative/ rubella immune /HIV negative. No RPR drawn. No urine culture drawn. No GC chlamydia drawn. Will add these labs. Had normal level [address] Matthew and has follow-up. Specific Issue/Plans AMA, on baby aspirin. Normal NIPT. Will order level 2 ultrasound. Works as a [employer]. On light duty. New father the baby this . Patient has 2 children of her own he has 3 children of his own. Multiple medical allergies Notes Visit Date: 06/12/25 Last Updated by: Sara Frey ([facility])MD GBB with me but I only talk to you I just recheck somebody's got the book okayS- Visit Date: 06/03/25 Last Updated by: Sara Frey ([facility])MD Recommend weight tomorrow NST BPP and urinalysis in triage to check for possible bladder infection. Visit Date: 05/25/25 Last Updated by: Sara Frey ([facility])MD Group B strep negative baby vertex on ultrasound. To L&D for NST for AMA. Authorized for twice weekly NSTs /BPP's Visit Date: 05/20/25 Last Updated by: Sara Frey ([facility])MD Off work 05/27/2025 note given. Group B strep done. Cervix closed thick and high. Unsure what position baby is in. Baby was breech 2 weeks ago. Visit Date: 05/06/25 Last Updated by: Sara Frey ([facility])MD Patient saw Dr. Matthew 05/04/2025 baby was breech. 78th percentile. Abdominal circumference large. Plan will be to repeat an ultrasound in 3 to 4 weeks. Patient signed tubal ligation papers today if she needs a Visit Date: 04/17/25 Last Updated by: Sara Frey ([facility])MD Patient states she was in triage about a week ago she was closed they check her urine and it was negative. She has not gotten that belly band. We did discuss tubal ligation if she needs a and she would like papers to be signed. Visit Date: 03/19/25 Last Updated by: Sara Frey ([facility])MD Had Level II US with Dr Kahn Visit Date: 02/06/25 Last Updated by: Sara Frey ([facility])MD No signs of PUPPS or a significant rash. Benadryl. Zyrtec. Consider a medrol dose pack. Check LFTS and Bile acids. Discussed cholestasis. Pt extremely anxious Visit Date: 01/28/25 Last Updated by: Sara Frey ([facility])MD Patient was in the ER 2 weeks ago. Some spotting. They diagnosed her with a bladder infection and she is finishing her antibiotics. Of note her urine culture was negative. She reports some pain in her abdomen. 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 Visit Date: 12/31/24 Last Updated by: Sara Frey ([facility])MD Patient employed as a [employer]. [employer] 06/18/2024. She is a 39-year-old -0-0-2. Her son Hank is 8, her daughter Snehal is 9. The father the baby is a nuclear medicine officer and has 3 children of his own. Office Procedures OBC Clinic LOC & Office Proc's Nursing/Assessment Patient Status: Established Patient OB Clinic Nursing Assessment: Medication Reconciliation, Update PMH in EMR and Vital Signs OB Clinic Coordination of Care: AMA, Complex Care and Chronic Disease 1-5, Consent,records obtained, informed consent, Education Simp Pt/Fam, 1 Ins Authorization, Lab and Imaging orders, Results/Orders obtained and Staff clarify orders Special Needs: Heart tones Miscellaneous Interventions: Pelvic no cultures Established Patient Charge Established Patient Point Assignment: 180 Established Patient Point Charge: EP Level 5 (160-above) Assessment & Plan Diagnosis / Problem List (1) : Status: Acute Qualifiers: Weeks of gestation: 39 weeks Qualified Code(s): Z3A.39 - 39 weeks gestation of Plan: Scheduled induction of labor for 06/19/2025 (2) Advanced maternal age (AMA), 40 years or greater: Status: Acute Plan: Going to [facility] BPP's twice weekly. On the induction schedule for 1 week. Additional Plan Follow Up: 1 Week
== END 2025-06-12 15:20 | disposition home or self-care (01) ==
LOC: HODSOBC 14:38
PROVIDERS: Supervising Provider Obstetrics & Gynecology; Visit Provider Obstetrics & Gynecology
DX: O09.523 Supervision of elderly multigravida, third trimester (principal); Z3A.39 39 weeks gestation of pregnancy; Z88.0 Allergy status to penicillin; Z88.6 Allergy status to analgesic agent; Z91.040 Latex allergy status
CPT/HCPCS: 99215; G0463

== ENCOUNTER 2025-06-14 19:20 | Observation (INO) | payer BC, SELFPAY ==
[2025-06-14] VITALS (24 sets, daily range): BP systolic 124–134; BP diastolic 67–78; PULSE 78–97; RESP 18; TEMP 37.1; O2SAT 93–100; BMI 30.2
== END 2025-06-14 21:15 | disposition home or self-care (01) ==
PROVIDERS: Admitting Provider Obstetrics & Gynecology; PCP Obstetrics & Gynecology; Visit Provider Obstetrics & Gynecology
DX: Z34.83 Encounter for supervision of other normal pregnancy, third trimester (principal); Z3A.39 39 weeks gestation of pregnancy
CPT/HCPCS: 59025; 59899

== ENCOUNTER 2025-06-18 12:46 | Outpatient (RCR) | payer BC, SELFPAY ==
--- NOTE | 2025-06-11 13:13 | XR_ITS ---
Examination: Biophysical profile, ultrasound Date and time of exam: June 11, 2025, 1320 hours INDICATIONS: Diagnosis advanced maternal age Technique: Multiple transabdominal sonographic images of the pelvis abdomen obtained. Attention is directed to the breathing movement, gross body movement, amniotic fluid volume and tone. Findings: Amniotic fluid index 18.5 cm Total biophysical profile is 8 of 8. breathing movement is 2. Gross body movement is 2. tone is 2. Qualitative amniotic fluid volume is 2 Impression: Biophysical profile is 8 of 8.
[2025-06-11 13:56] VITALS: BP 112/61; PULSE 73; RESP 16; TEMP 36.7
--- NOTE | 2025-06-15 13:03 | XR_ITS ---
Examination: Biophysical profile, ultrasound Date and time of exam: June 15, 2025, 1304 hours INDICATIONS: Diagnosis advanced maternal age Technique: Multiple transabdominal sonographic images of the pelvis abdomen obtained. Attention is directed to the breathing movement, gross body movement, amniotic fluid volume and tone. Findings: Amniotic fluid index 18.3 cm Total biophysical profile is 8 of 8. breathing movement is 2. Gross body movement is 2. tone is 2. Qualitative amniotic fluid volume is 2 Impression: Biophysical profile is 8 of 8.
[2025-06-15 13:50] VITALS: BP 124/74; PULSE 99; RESP 16
--- NOTE | 2025-06-18 12:54 | XR_ITS ---
Examination: Biophysical profile, ultrasound Date and time of exam: June 18, 2025, 1300 hours INDICATIONS: Diagnosis advanced maternal age Technique: Multiple transabdominal sonographic images of the pelvis abdomen obtained. Attention is directed to the breathing movement, gross body movement, amniotic fluid volume and tone. Findings: Amniotic fluid index 16.8 cm Total biophysical profile is 8 of 8. breathing movement is 2. Gross body movement is 2. tone is 2. Qualitative amniotic fluid volume is 2 Impression: Biophysical profile is 8 of 8.
[2025-06-18 13:58] VITALS: BP 116/71; PULSE 98; RESP 17
== END 2025-06-18 16:20 | disposition home or self-care (01) ==
LOC: S4S1 12:46
PROVIDERS: PCP Family Medicine; Referring Provider Obstetrics & Gynecology; Visit Provider Obstetrics & Gynecology
DX: O09.523 Supervision of elderly multigravida, third trimester (principal); Z3A.39 39 weeks gestation of pregnancy
CPT/HCPCS: 59025; 76819

== ENCOUNTER 2025-06-18 14:12 | Observation (INO) | payer BC, MEDICAID, SELFPAY ==
[2025-06-18 14:15] VITALS: BP 118/68; PULSE 93; RESP 16; RESP 97; TEMP 36.4; BMI 29.0
[2025-06-18 14:34] VITALS: PULSE 92; O2SAT 99
[2025-06-18 14:35] VITALS: BP 118/68; PULSE 91
[2025-06-18 14:39] VITALS: PULSE 83; O2SAT 99
[2025-06-18 14:44] VITALS: PULSE 93; O2SAT 98
[2025-06-18 14:49] VITALS: PULSE 94; O2SAT 95
== END 2025-06-18 16:20 | disposition home or self-care (01) ==
PROVIDERS: Admitting Provider Obstetrics & Gynecology; Visit Provider Obstetrics & Gynecology
DX: O47.1 False labor at or after 37 completed weeks of gestation (principal); Z3A.39 39 weeks gestation of pregnancy
CPT/HCPCS: 59025; 59899

== ENCOUNTER 2025-06-20 12:35 | Observation (INO) | payer BC, MEDICAID, SELFPAY ==
--- NOTE | 2025-06-19 09:52 | PC.NURSE ---
LATE ENTRY: PT HAD CALLED EARLIER ASKING FOR BED AVAILABILITY FOR IOL, INFORMED OF NO BEDS AVAILABLE AT THIS TIME, EDUCATED ON KICK COUNT AND LABOR PRECAUTIONS, WILL CALL ONCE BED BECOMES AVAILABLE, PT VERBALIZED UNDERSTANDING
--- NOTE | 2025-06-19 14:58 | PC.NURSE ---
CALLED PT DUE TO PT HAD CALLED EARLIER BUT THIS RN WAS ON PHONE, LEFT VOICEMAIL TO PT INFORMING OF STILL NO BED AVAILABLE FOR IOL, AWAIT FOR HIGH SCHOOL PRINCIPAL TO CALL PT AT 1999
--- NOTE | 2025-06-19 15:12 | PC.NURSE ---
PT CALLED, STATES DID NOT LISTEN TO VOICEMAIL, INFORMED OF STILL NO BED AVAILABLE FOR IOL, 2 PTS AHEAD OF HER, EDUCATED ON KICK COUNT AND LABOR PRECAUTIONS, ASKED PT TO CALL BACK TONIGHT AT 2100, PT VERBALIZED UNDERSTANDING
[2025-06-20] VITALS (37 sets, daily range): BP systolic 104–123; BP diastolic 54–74; PULSE 75–94; RESP 18; TEMP 36.5–36.7; O2SAT 97–100; BMI 30.2
--- NOTE | 2025-06-20 09:05 | PC.NURSE ---
PT CALLED, ASKED FOR BED AVAILABILITY FOR IOL, INFORMED OF NO BEDS AVAILABLE AT THIS TIME, WILL CALL PT ONCE BED BECOMES AVAILABLE, EDUCATED ON KICK COUNT AND LABOR PRECAUTIONS, PT VERBALIZED UNDERSTANDING
--- NOTE | 2025-06-20 10:43 | PC.NURSE ---
CALLED PT, ASKED PT TO COME IN FOR IOL, PT STATES WILL SHOWER AND HEAD OUT, ASKED PT TO BE HERE WITHIN AN HOUR AND A HALF
--- NOTE | 2025-06-20 14:11 | XR_ITS ---
Examination: Complete OB ultrasound greater than 14 weeks Date and time of exam: June 20, 2025, 1434 hours INDICATIONS: Pelvic contractions today Findings: Viable intrauterine single fetus with single amniotic sac presentation cephalic Cardiac motion 178 bpm Placenta left lateral grade 3 Umbilical cord insertion seen. Amniotic fluid index 18.1 cm spine maternal right Ovaries obscured by bowel gas. Composite estimated gestational age based on BPD, head circumference, abdominal circumference, femur length is 39 weeks 2 days Estimated weight 3931 g . Survey of intracranial anatomy, spinal anatomy, abdominal anatomy, four-chamber heart performed with no abnormalities identified. Impression: Viable intrauterine gestation in cephalic presentation.
[2025-06-20 14:29] LABS: Basophils # (Auto) 0.0 Thou/mm3 (0.0-0.2); Basophils % (Auto) 1 % (0-2.5); Eosinophils # (Auto) 0.1 Thou/mm3 (0.0-0.5); Eosinophils % (Auto) 1 % (0-10); Hematocrit 33.3 % (36.0-46.0); Hemoglobin 11.3 g/dL (12.0-16.0); Immature Granulocytes Auto 0.10 Thou/mm3 (0.00-0.00); Lymphocytes # (Auto) 1.1 Thou/mm3 (1.0-4.8); Lymphocytes % (Auto) 14 % (10-50); Mean Corpuscular HGB Conc 33.9 g/dl (31.0-37.0); Mean Corpuscular Hemoglobin 30.3 pg (25.0-35.0); Mean Corpuscular Volume 89 fL (80-100); Monocytes # (Auto) 1.1 Thou/mm3 (0.0-0.8); Monocytes % (Auto) 15 % (0-12); Neutrophils # (Auto) 5.3 Thou/mm3 (1.8-7.7); Neutrophils % (Auto) 68 % (37-80); Nucleated Red Blood Cell # 0.00 Thou/mm3 (0.00-0.00); Nucleated Red Blood Cell % 0 /100 WBC (0); Platelet Count 280 Thou/mm3 (140-440); RDW Standard Deviation 45.1 fL (36.4-46.3); Red Blood Count 3.73 Miln/mm3 (4.00-5.20); White Blood Count 7.7 Thou/mm3 (3.6-11.0)
[2025-06-20 15:03] LABS: Syphilis Nonreactive (Nonreactive)
--- NOTE | 2025-06-20 18:43 | PD.LDHP ---
Documentation for date of: 06/20/25 OB Labor/Induct. HPI History of Present Illness : 3 Para: 2 Term pregnancies: 0 pregnancies: 0 Living children: 2 History of Abortions: Spontaneous and Elective: 0 History of Vaginal deliveries: 2 History of sections: No History of : No Date of last menstrual period: 09/08/24 ELVA: 06/19/25 Gestational Age (weeks): 40 Gestational Age (days): 1 Gestational age based on last menstrual period: 40 Indication for induction: other History of present illness: IOL for AMA History of Present Adequate Care: Yes Ultrasounds: normal mid trimester US Obstetrical complications: other (Advanced maternal age) Labs Maternal Blood Type: B Pos Labs: Positive: Rubella Titre, Negative: RPR, Hepatitis B, HIV, Chlamydia, Gonorrhea and Group Beta Strep and Unknown: Herpes Type 1, Herpes Type 2 and Covid-19 Review of Systems Review of Systems Systems Reviewed: All systems reviewed, normal except as documented Past Medical History Surgical History SURGICAL: Negative Section Meds Home Medications and Allergies Home Medications ?Medication ?Instructions ?Recorded ?Confirmed ?Type vit no.95-ferrous 1 tab PO QDAY 04/30/25 06/20/25 History fumarate 28 mg-folic acid 800 mcg tablet () Allergies Allergy/AdvReac Type Severity Reaction Status Date / Time latex Allergy Mild Rash Verified 06/20/25 13:56 clavulanic acid (From AdvReac Intermediate Nausea Verified 06/20/25 13:56 Augmentin) hydrocodone (From Vicodin) AdvReac Intermediate Nausea Verified 06/20/25 13:56 OB Exam Physical Exam Vital signs: Temp Pulse Resp BP Pulse Ox O2 Del Method 98.0 F 94 18 123/74 97 Room Air 06/20/25 15:40 06/20/25 15:07 06/20/25 15:40 06/20/25 15:07 06/20/25 17:04 06/20/25 12:30 Narrative: Size equal to dates / EFW 3.8 kg by abd exam uterus non tender Occasional/ contractions non tender FHR is category 1 presentation is vertex cervix was closed , thick and high Constitutional Constitutional: no acute distress Comments: Alert and oriented x 3 no shortness of breath Pain no chest pain no palpitations Chest clear bilaterally no additional sounds, no wheezing no rales CVS regular rate and rhythm No CVAT Abdomen nontender, normal bowel sounds No guarding no rigidity No hernias Detailed Labor and Delivery Exam monitor accelerations: 15x15 halfway variability: Average (6-10) Tachysystole: No OB Results Labs 06/20/25 13:00 Labs: Short CBC 06/20/25 Range/Units 13:00 WBC 7.7 (3.6-11.0) Thou/mm3 Hgb 11.3 L (12.0-16.0) g/dL Hct 33.3 L (36.0-46.0) % Plt Count 280 (140-440) Thou/mm3 [facility] [address] [place] [address] [place] [facility] Report Signed Patient: NGUYEN NGUYEN [facility]. Record#: [id number] Birthdate: 1985 Age/Sex: 39 / F Location: [address]: Mariam Miller MD Ordering Physician: MARIAM MILLER MD Date of Service: 06/20/25 Procedure(s): US OB >= 14 weeks Fetus Accession Number(s): [id number] cc: MARIAM MILLER MD; Ovidio Carrillo MD; NO PRIMARY/FAMILY,PHYSICIAN~ Examination: Complete OB ultrasound greater than 14 weeks Date and time of exam: June 20, 2025, 1434 hours INDICATIONS: Pelvic contractions today Findings: Viable intrauterine single fetus with single amniotic sac presentation cephalic Cardiac motion 178 bpm Placenta left lateral grade 3 Umbilical cord insertion seen. Amniotic fluid index 18.1 cm spine maternal right Ovaries obscured by bowel gas. Composite estimated gestational age based on BPD, head circumference, abdominal circumference, femur length is 39 weeks 2 days Estimated weight 3931 g . Survey of intracranial anatomy, spinal anatomy, abdominal anatomy, four-chamber heart performed with no abnormalities identified. Impression: Viable intrauterine gestation in cephalic presentation. Dictated By: Ovidio Carrillo MD Signed By: <Electronically signed by Ovidio Carrillo MD in OV> 06/20/25 1513 DD/ 151 TD/TT: 06/20/251511 Criminal Justice Instructor: GISELA OB Assessment & Plan Assessment and Plan (1) Advanced maternal age (AMA), 40 years or greater: Status: Acute (2) : Status: Acute (3) 40 weeks gestation of : Status: Acute Additional Plan Induction method: per misoprostol protocol Plan: induction Additional Plan Comment: patient feels she is getting spontaneous Uc and wishes to wait on cytotec / she however agreed to proceed with cervidil and that was placed (2) Qualifiers: Weeks of gestation: 39 weeks Qualified Code(s): Z3A.39 - 39 weeks gestation of
[2025-06-20] MEDS: ACETAMINOPHEN 325 MG TABLET 650 MG PO (20:39)
[2025-06-20] MEDS: RINGERS LACTATED 1000 ML 1,000 ML 125 ML IV (20:44)
[2025-06-21] VITALS (37 sets, daily range): BP systolic 105–131; BP diastolic 55–82; PULSE 74–186; RESP 16–18; TEMP 36.7–37; O2SAT 75–98
--- NOTE | 2025-06-21 19:49 | PD.LDPN ---
Documentation for date of: 06/21/25 OB Labor Progress Note Pain Control Pain control: tolerating well Pelvic Exam Dilation (cm): 1.5 Effacement (%): THICK station: -3 Amniotic membrane status: Intact Contractions Monitor mode: External Contraction frequency: 2-4 Contraction pattern: Tetanic Contraction intensity: Mild Status status: Category l Assessment and Plan Assessment: induction ongoing Plan OB labor note: continuous present management Comments: will switch to cytotec after cervidil removal History of Present Illness HPI IOL for AMA
[2025-06-22] VITALS (14 sets, daily range): BP systolic 113–118; BP diastolic 59–62; PULSE 72–100; O2SAT 96–98
--- NOTE | 2025-06-22 07:36 | XR_ITS ---
Examination: Complete OB ultrasound greater than 14 weeks Date and time of exam: June 22, 2025, 0833 hours INDICATIONS: Postdates, patient in active labor today Findings: Viable intrauterine single fetus with single amniotic sac presentation cephalic spine maternal right Cardiac motion 141 bpm Placenta anterior grade 1 Umbilical cord insertion seen. Amniotic fluid index 8.9 cm Cervix obscured by the head Ovaries obscured by bowel gas. Composite estimated gestational age based on BPD, head circumference, abdominal circumference, femur length is 40 weeks 2 days Estimated weight 4012 g. Survey of intracranial anatomy, spinal anatomy, abdominal anatomy, four-chamber heart performed with no abnormalities identified. Impression: Viable intrauterine gestation in cephalic presentation.
--- NOTE | 2025-06-22 12:17 | PD.LDPN ---
Documentation for date of: 06/22/25 OB Labor Progress Note Pain Control Pain control: tolerating well Pelvic Exam Dilation (cm): 1.5 Effacement (%): 40 station: -4 Amniotic membrane status: Intact Contractions Monitor mode: External Contraction frequency: 4-5 Contraction pattern: Tetanic Contraction intensity: Mild Status status: Category l Assessment and Plan Plan OB labor note: other (Discharge home undelivered. Return Sunday for nonstress test.. Patient is scheduled June 29 at 41 weeks for induction of labor.) History of Present Illness HPI The patient is a 39-year-old -0-0-2 admitted 06/20/25 for an induction of labor secondary to AMA. Patient was admitted by Dr. Miller. She had Cervidil placed x 1 followed by Cytotec orally 50 mcg x 4. Patient's cervical exam remains 1 to 2 cm 50% with a high station. An ultrasound performed today reveals vertex presentation baby is approximately 3931 g SYLVAIN is 18. Patient is mitchell regularly about every 4 minutes but she is not feeling them. NST is reactive. As the patient is not progressing after one Cervidil and maximum doses of Cytotec she was offered an option to go home and to return later in the week for an NST followed by an induction of labor scheduled at 41 weeks versus a primary . Patient declines at this time and states she will go home and be rescheduled for an induction of labor at 41 weeks. Patient is to come back for a nonstress test on Sunday.
--- NOTE | 2025-06-22 12:26 | PD.LDDS ---
DS: Providers Provider Date of admission: 06/20/25 12:35 Primary care physician: Physician No Primary/Family Admitting Provider: Rhina Miller MD Attending Provider on Admission: Rhina Miller MD Attending Provider on DC: Sara Frey MD ([facility]) Discharging Provider: Sara Frey MD ([facility]) Anticipated date of discharge: 06/22/25 DS: Diagnosis Discharge Diagnosis (1) 40 weeks gestation of : Status: Acute Assessment & Plan: Patient's status post attempted induction of labor secondary to AMA at term. Once assessable. Sent home undelivered. Follow-up Sunday for an NST and patient is scheduled for 06/29/2025 for an induction of labor secondary to postdates at 41 weeks. (2) Advanced maternal age (AMA), 40 years or greater: Status: Acute Problem List Completed Was Problem List Reviewed/Reconciled?: Yes Summary/Hosp Course Brief History: The patient is a 39-year-old -0-0-2 admitted 06/20/25 for an induction of labor secondary to AMA. Patient was admitted by Dr. Miller. See history and physical for further details. Hospital course: She had Cervidil placed x 1 followed by Cytotec orally 50 mcg x 4. Patient's cervical exam remains 1 to 2 cm 50% with a high station. I examined the patient at approximately 8:00 in the morning 06/22/2025. An ultrasound performed today reveals vertex presentation baby is approximately 3931 g SYLVAIN is 18. Patient is mitchell regularly about every 4 minutes but she is not feeling them. NST is reactive. As the patient is not progressing after one Cervidil and maximum doses of Cytotec she was offered an option to go home and to return later in the week for an NST followed by an induction of labor scheduled at 41 weeks versus a primary . Patient declines at this time and states she will go home and be rescheduled for an induction of labor at 41 weeks. Patient is to come back for a nonstress test on Sunday. Status at Discharge Functional status at discharge: independent ambulation Overall status at discharge: patient is back to baseline Time Spent with Patient Time attestation: Total time spent providing and/or coordinating discharge services: Time spent: Less than 30 minutes Specific discharge activities: kick counts. Labor precautions. Follow-up 07/25/2025 for an NST BPP. Follow-up 06/29/2025 if undelivered for a scheduled induction of labor at 41 weeks for postdates. Exam Vital Signs Temp Pulse Resp BP Pulse Ox O2 Del Method 98.2 F 77 17 118/62 98 Room Air 06/21/25 19:18 06/22/25 08:56 06/21/25 19:18 06/22/25 08:56 06/22/25 00:56 06/21/25 19:18 Narrative Exam Patient is alert and orient x 3 in no apparent distress Discharge Plan Plan Patient Disposition: HOME (Self Care) Disposition Comment: Stable Patient condition on transfer: Stable Prescriptions/Referrals Prescriptions/Med Rec: No Action docusate sodium [Colace] 100 mg capsule 100 mg PO BID Qty: 60 0RF ferrous sulfate [Feosol] 325 mg (65 mg iron) tablet 325 mg PO QDAY Qty: 30 0RF PNV no.95-ferrous fumarate-FA [] 28 mg iron- 800 mcg tablet 1 tab PO QDAY Referrals: No Primary/Family,Physician [Primary Care Provider] Patient/Caregiver Discharge Instructions Discharge Activity: activity as tolerated Other Discharge Activity Instructions:: RETURN SUNDAY FOR NST CALL AT 0900 FOR SCHEDULED INDUCTION FOR 06/28 Education Materials: Kick Counts, Antepartum Discharge Print Language: Mongolian Activity Restrictions/Additional Instructions: Come back for heavy bleeding, decreased movement, severe headaches or shortness of breath or ruptured membranes Stand Alone Forms: Patient Portal Info Letter Discharge Order Discharge Orders: Discharge (Routine); Ordered 06/22/25 Ordered By: Sara Frey ([facility]) Planned Discharge Date 06/22/25
== END 2025-06-22 10:47 | disposition home or self-care (01) ==
PROVIDERS: Admitting Provider Obstetrics & Gynecology; Visit Provider Obstetrics & Gynecology
DX: O61.0 Failed medical induction of labor (principal); O09.523 Supervision of elderly multigravida, third trimester; O48.0 Post-term pregnancy; Z3A.40 40 weeks gestation of pregnancy
CPT/HCPCS: 36415; 59899; 76805; 85025; 86780; 86850; 86900; 86901; G0378; J7120; A9270

== ENCOUNTER 2025-06-24 16:36 | Inpatient (IN) | payer BC, MEDICAID, SELFPAY ==
[2025-06-24] VITALS (29 sets, daily range): BP systolic 98–123; BP diastolic 54–80; PULSE 72–102; RESP 16–97; TEMP 36.4–36.8; O2SAT 95–99; BMI 30.5
--- NOTE | 2025-06-24 14:47 | XR_ITS ---
EXAMINATION: age Limited TECHNIQUE: Transabdominal sonographic images pelvis Date and time: June 24, 2025, 1512 hours INDICATIONS: Nonstress test, diagnosis postdates FINDINGS: Viable intrauterine gestation cardiac motion 152 bpm Amniotic fluid index 18.6 cm IMPRESSION: Amniotic fluid index 18.6 cm
--- NOTE | 2025-06-24 17:18 | ESHP_ITS ---
Documentation for date of: 06/24/25 OB Labor/Induct. HPI History of Present Illness Chief complaint: Patient presents for a nonstress test at 40-5/7 weeks : 3 Para: 2 Term pregnancies: 0 pregnancies: 0 Living children: 2 History of Abortions: Spontaneous and Elective: 0 History of Vaginal deliveries: 2 History of sections: No History of : No ELVA: 06/19/25 Gestational Age (weeks): 40 Gestational Age (days): 5 Indication for induction: post dates History of present illness: The patient is a 39-year-old -0-0-2 who I discharged the other day after an unsuccessful induction of labor for postdates. Today the patient presented for nonstress test. She is currently 40 5/7 weeks EGA. Thebaby had a wandering baseline. The baby appeared to be in the 150s with some variable decelerations down to the 120s. Excellent variability. Overall a category 1 tracing however as the patient is post-dates and having some variables the decision was made to keep the patient. Her cervical exam is largely unchanged at 1/60/-3/posterior with a ballotable presentation. Vertex .SYLVAIN is 18. The patient was offered a primary versus another induction of labor and she opts for an induction of labor. She declined Cervidil and would like to try Cytotec. She is aware the last EFW on the baby was about 4000 g corresponding to approximately 8 pounds 14 ounces. She states her largest baby was about 7 pounds 8 ounces. History of Present Dating criteria: LMP confirmed by 1st trimester US Adequate Care: Yes Ultrasounds: normal mid trimester US Abnormal ultrasound findings: Normal level 2 ultrasound with MFM Obstetrical complications: none Medical complications: other (AMA) Labs Maternal Blood Type: B Pos Labs: Positive: Rubella Titre (Rubella immune) and Negative: RPR, Hepa titis B, HIV, Chlamydia, Gonorrhea and Group Beta Strep Past Medical History Surgical History SURGICAL: Negative Section Past Medical History Comments PMH COMMENT: No significant past medical history Meds Home Medications and Allergies Home Medications ?Medication ?Instructions ?Recorded ?Confirmed ?Type vit no.95-ferrous 1 tab PO QDAY 04/30/2505/28 History fumarate 28 mg-folic acid 800 mcg tablet () Allergies Allergy/AdvReac Type Severity Reaction Status Date / Time latex Allergy Mild Rash Verified 06/24/25 16:39 clavulanic acid (From AdvReac Intermediate Nausea Verified 06/24/25 16:39 Augmentin) hydrocodone (From Vicodin) AdvReac Intermediate Nausea Verified 06/24/25 16:39 OB Exam Physical Exam Vital signs: Temp Pulse Resp BP Pulse Ox 97.6 F 81 16 122/67 97 06/24/25 14:40 06/24/25 14:40 06/24/25 14:40 06/24/25 14:40 06/24/25 15:11 Routine Abdominal Exam Abdominal: Present soft Detailed Labor and Delivery Exam Dilation (cm): 1 Effacement (%): 60 Cervix position: posterior station: -3 Consistency: soft Presentation: Vertex Membranes: intact Baseline heart rate: 150 monitor accelerations: 15x15 monitor decelerations: 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 Possible LGA baby. Patient is aware she would need for failure to progress or that baby might not tolerate adequate labor. Patient declines primary low-transverse section at this time (3) Supervision of high risk in third trimester: Status: Acute Additional Plan Induction method: per misoprostol protocol Plan: augmentation (2) Post-dates Qualifiers: Post-term type: 40-42 weeks gestation Qualified Code(s): O48.0 - Post-term
[2025-06-24 19:01] LABS: Basophils # (Auto) 0.0 Thou/mm3 (0.0-0.2); Basophils % (Auto) 0 % (0-2.5); Eosinophils # (Auto) 0.1 Thou/mm3 (0.0-0.5); Eosinophils % (Auto) 1 % (0-10); Hematocrit 36.7 % (36.0-46.0); Hemoglobin 12.6 g/dL (12.0-16.0); Immature Granulocytes Auto 0.12 Thou/mm3 (0.00-0.00); Lymphocytes # (Auto) 1.5 Thou/mm3 (1.0-4.8); Lymphocytes % (Auto) 15 % (10-50); Mean Corpuscular HGB Conc 34.3 g/dl (31.0-37.0); Mean Corpuscular Hemoglobin 31.1 pg (25.0-35.0); Mean Corpuscular Volume 91 fL (80-100); Monocytes # (Auto) 1.2 Thou/mm3 (0.0-0.8); Monocytes % (Auto) 11 % (0-12); Neutrophils # (Auto) 7.6 Thou/mm3 (1.8-7.7); Neutrophils % (Auto) 72 % (37-80); Nucleated Red Blood Cell # 0.00 Thou/mm3 (0.00-0.00); Nucleated Red Blood Cell % 0 /100 WBC (0); Platelet Count 289 Thou/mm3 (140-440); RDW Standard Deviation 46.5 fL (36.4-46.3); Red Blood Count 4.05 Miln/mm3 (4.00-5.20); White Blood Count 10.5 Thou/mm3 (3.6-11.0)
[2025-06-24 19:31] LABS: Syphilis Nonreactive (Nonreactive)
[2025-06-24] MEDS: RINGERS LACTATED 1000 ML 1,000 ML 100 ML IV (20:16)
[2025-06-25] VITALS (197 sets, daily range): BP systolic 89–138; BP diastolic 52–97; PULSE 50–143; RESP 16–20; TEMP 36.5–36.9; O2SAT 78–100
[2025-06-25] MEDS: RINGERS LACTATED 1000 ML 1,000 ML 100 ML IV (07:32)
[2025-06-25] MEDS: ACETAMINOPHEN IVPB 1,000 MG/100 ML VIAL 250 MG IV (16:10)
[2025-06-25 16:40] LABS: Basophils # (Auto) 0.0 Thou/mm3 (0.0-0.2); Basophils % (Auto) 0 % (0-2.5); Eosinophils # (Auto) 0.1 Thou/mm3 (0.0-0.5); Eosinophils % (Auto) 0 % (0-10); Hematocrit 35.8 % (36.0-46.0); Hemoglobin 11.9 g/dL (12.0-16.0); Immature Granulocytes Auto 0.11 Thou/mm3 (0.00-0.00); Lymphocytes # (Auto) 1.5 Thou/mm3 (1.0-4.8); Lymphocytes % (Auto) 13 % (10-50); Mean Corpuscular HGB Conc 33.2 g/dl (31.0-37.0); Mean Corpuscular Hemoglobin 29.8 pg (25.0-35.0); Mean Corpuscular Volume 90 fL (80-100); Monocytes # (Auto) 1.3 Thou/mm3 (0.0-0.8); Monocytes % (Auto) 12 % (0-12); Neutrophils # (Auto) 8.5 Thou/mm3 (1.8-7.7); Neutrophils % (Auto) 74 % (37-80); Nucleated Red Blood Cell # 0.00 Thou/mm3 (0.00-0.00); Nucleated Red Blood Cell % 0 /100 WBC (0); Platelet Count 266 Thou/mm3 (140-440); RDW Standard Deviation 45.2 fL (36.4-46.3); Red Blood Count 4.00 Miln/mm3 (4.00-5.20); White Blood Count 11.5 Thou/mm3 (3.6-11.0)
[2025-06-25 16:42] LABS: Alanine Aminotransferase 8 U/L (10-49); Albumin, Serum 3.5 gm/dL (3.5-5.0); Albumin/Globulin Ratio 1.5 (1.2-2.2); Alkaline Phosphatase 150 U/L (46-116); Anion Gap 12 (7-16); Aspartate Amino Transferase 18 U/L (0-34); BUN/Creatinine Ratio 13 Ratio (12-20); Bilirubin,Total 0.9 mg/dL (0.3-1.2); Blood Urea Nitrogen 5 mg/dL (9-23); Calcium 8.7 mg/dL (8.3-10.6); Calcium (Corrected) 9.1 mg/dL (8.5-10.1); Carbon Dioxide 20.6 mMol/L (20.0-31.0); Chloride 105 mMol/L (98-107); Creatinine (Component) 0.4 mg/dL (0.6-1.3); Estimated Creatinine Clearance 185.2 mL/min (>60); Globulin 2.3 gm/dL (2.3-3.5); Glucose 96 mg/dL (74-106); Osmolality,Calculated 272 (275-295); Potassium 3.6 mMol/L (3.4-5.1); Sodium 138 mMol/L (136-145); Total Protein 5.8 gm/dL (5.7-8.2); Uric Acid 3.2 mg/dL (3.1-7.8); eGFR > 60 See Note
[2025-06-25 16:55] LABS: INR 0.9 (0.9-1.3); Partial Thromboplastin Time 25.7 Seconds (22.0-36.0); Prothrombin Time 9.6 Seconds (9.0-12.2)
[2025-06-25 16:56] LABS: Fibrinogen 462 mg/dL (175-375)
[2025-06-25 20:34] LABS: Collection Type, Urine Clean Catch; Squamous Epithelial Cell,Urine 0 /hpf (0-5)
[2025-06-25 20:39] LABS: Bilirubin,Urine Negative (Negative); Blood,Urine 3+ (Negative); Clarity,Urine Clear (Clear/Hazy); Color,Urine Lt-Yellow (Lt Yel-Yel); Glucose, Urine Negative (Negative); Hyaline Casts,Urine < 1 /hpf (0-1); Ketones,Urine 2+ (Negative); Leukocyte Esterase,Urine Negative (Negative); Nitrite,Urine Negative (Negative); PH,Urine 7.0 (5.0-7.0); Protein,Urine Negative (Neg - Trace); RBC,Urine 44 /hpf (0-3); Specific Gravity,Urine 1.008 (1.001-1.035); Urobilinogen,Urine Negative mg/dL (0.0-1.0); WBC,Urine 5 /hpf (0-5)
[2025-06-25 20:46] LABS: Creatinine,Random Urine 28 mg/dL (30-125); Protein Total, Random Urine 26 mg/dL (1-14)
[2025-06-26] VITALS (53 sets, daily range): BP systolic 105–138; BP diastolic 55–77; PULSE 67–125; RESP 16–18; TEMP 36.4–37.1; O2SAT 81–100
[2025-06-26] MEDS: MINERAL OIL 30 ML UDC TOP (01:30)
[2025-06-26] MEDS: OXYTOCIN in NS 20 units 20 UNIT/1,000 ML BAG 999 UNIT IV (01:55)
[2025-06-26] MEDS: OXYTOCIN INJ 10 UNIT/ML VIAL IM (01:55)
[2025-06-26] MEDS: TRANEXAMIC ACID 1,000 MG IVPB 1,000 MG/100 ML BAG 200 MG IV ×2 (01:58→03:19)
[2025-06-26] MEDS: RINGERS LACTATED 1000 ML 1,000 ML 100 ML IV (02:00)
[2025-06-26] MEDS: BENZO/LANO/ALOE (Dermoplast) 60 GM CAN 1 SPRAY TOP (02:00)
[2025-06-26] MEDS: METHYLERGONOVINE INJ 0.2 MG/ML VIAL IM (02:30)
--- NOTE | 2025-06-26 02:39 | PD.LDDELS ---
Data (Faustin) Data Hx Section: No : 3 Term: 0 : 0 Livin Abortions: Spontaneous & Theraputic: 0 Delivery Data (Faustin) Labor Data Initiation of labor: Induction Induction/Augmentation Agent: Cytotec-PO and Pitocin ROM date: 06/25/25 ROM time: 22:25 Amniotic membrane rupture type: Artificial Amniotic fluid description: Clear Delivery Data Onset of labor date: 06/25/25 Onset of labor time: 18:15 Complete dilation date: 06/26/25 Complete dilation time: 00:15 [place] delivery date: 06/26/25 [place] delivery time: 01:53 Placenta delivery date: 06/26/25 Placenta delivery time: 01:55 Stage 1 total time: Labor - Stage 1 Duration 6 hours and 0 minutes Delivered by: Sandra Carson Delivery Method Presentation: Vertex Anesthesia Type Anesthesia Type: Epidural Placenta Placenta delivery description: Spontaneous Cord blood sent to lab: Yes cord blood collection: Cord Blood Type Episiotomy Episiotomy description: None Umbilical Cord cord description: 3 Vessels [place] Data (Faustin) Data order: 1 [place]'s gender: Male Identification band number: [id number] weight (gms): 4080 g Weight (pounds): 8 lbs and 15.9 ozs [place] length: 57 cm 1 minute: 8 5 minutes: 9
--- NOTE | 2025-06-26 02:42 | OBDSUM_ITS ---
Data (Faustin) Data Hx Section: No : 3 Term: 0 : 0 Livin Abortions: Spontaneous & Theraputic: 0 Delivery Data (Faustin) Labor Data Initiation of labor: Induction Induction/Augmentation Agent: Cytotec-PO and Pitocin ROM date: 06/25/25 ROM time: 22:25 Amniotic membrane rupture type: Artificial Amniotic fluid description: Clear Delivery Data EDC: 06/19/25 EDC calculated by:: LMP/early US confirmation Date of arrival to unit: 06/24/25 Time of arrival to unit: 14:17 Onset of labor date: 06/25/25 Onset of labor time: 18:15 Complete dilation date: 06/26/25 Complete dilation time: 00:15 delivery date: 06/26/25 delivery time: 01:53 Gestational age (weeks): 41 Gestational age (days): 0 Placenta delivery date: 06/26/25 Placenta delivery time: 01:55 Stage 1 total time: Labor - Stage 1 Duration 6 hours and 0 minutes Delivered by: Sandra Carson Delivery nurse: Lacey Pepe RN [facility] nurse: Sultana Felder RN, Kateirna Blood RN [employer] Jointer at delivery: No Support person(s) at delivery: Significant other Other staff at delivery: Dr. Jasso Delivery Method Delivery method: Normal Vaginal Delivery Presentation: Vertex position: OA Anesthesia Type Anesthesia Type: Epidural Delivery Room Medications Delivery room medications given: Ampicillin Delivery room medications: Methergine 0.2 mg IM, Pitocin 10 u IM, Pitocin 20 u IV, Cytotec 800 GA and other (TXA x2) Placenta Placenta delivery description: Spontaneous (inspected, intact) Cord blood sent to lab: Yes cord blood collection: Cord Blood Type Episiotomy Episiotomy description: None Lacerations #1: Vaginal: 1st degree (mucosa only,no repair) EBL Estimated blood loss (ml): 550 Umbilical Cord cord description: 3 Vessels Data (Faustin) Data order: 1 [place]'s gender: Male Identification band number: [id number] weight (gms): 4080 g Weight (pounds): 8 lbs and 15.9 ozs [place] length: 57 cm 1 minute: 8 5 minutes: 9
[2025-06-26] MEDS: ceFAZolin/D5W 2 GM IV 2 GM/100 ML BAG IV ×3 (03:52→21:53)
[2025-06-26] MEDS: ACETAMINOPHEN 325 MG TABLET 650 MG PO (05:02)
[2025-06-26] MEDS: DOCUSATE SOD 100 MG CAPSULE PO ×2 (09:56→21:52)
[2025-06-26 10:50] LABS: Basophils # (Auto) 0.0 Thou/mm3 (0.0-0.2); Basophils % (Auto) 0 % (0-2.5); Eosinophils # (Auto) 0.0 Thou/mm3 (0.0-0.5); Eosinophils % (Auto) 0 % (0-10); Hematocrit 33.5 % (36.0-46.0); Hemoglobin 11.6 g/dL (12.0-16.0); Immature Granulocytes Auto 0.15 Thou/mm3 (0.00-0.00); Lymphocytes # (Auto) 1.2 Thou/mm3 (1.0-4.8); Lymphocytes % (Auto) 6 % (10-50); Mean Corpuscular HGB Conc 34.6 g/dl (31.0-37.0); Mean Corpuscular Hemoglobin 30.6 pg (25.0-35.0); Mean Corpuscular Volume 88 fL (80-100); Monocytes # (Auto) 2.1 Thou/mm3 (0.0-0.8); Monocytes % (Auto) 10 % (0-12); Neutrophils # (Auto) 17.5 Thou/mm3 (1.8-7.7); Neutrophils % (Auto) 84 % (37-80); Nucleated Red Blood Cell # 0.00 Thou/mm3 (0.00-0.00); Nucleated Red Blood Cell % 0 /100 WBC (0); Platelet Count 248 Thou/mm3 (140-440); RDW Standard Deviation 44.9 fL (36.4-46.3); Red Blood Count 3.79 Miln/mm3 (4.00-5.20); White Blood Count 21.0 Thou/mm3 (3.6-11.0)
[2025-06-26] MEDS: IBUPROFEN TAB 400 MG TABLET 800 MG PO (13:19)
[2025-06-27 04:00] VITALS: BP 108/67; PULSE 64; RESP 18; TEMP 36.6; O2SAT 97
[2025-06-27] MEDS: ceFAZolin/D5W 2 GM IV 2 GM/100 ML BAG IV (06:01)
[2025-06-27] MEDS: IBUPROFEN TAB 400 MG TABLET 800 MG PO (07:21)
[2025-06-27 08:00] VITALS: BP 109/70; PULSE 78; RESP 18; TEMP 36.7; O2SAT 98
--- NOTE | 2025-06-27 09:44 | ESPR_ITS ---
Subjective Subjective Interval history: complains of mild cramps and discomfort. breast feeding. no dizziness. no PIH complaints Exam Vital Signs Temp Pulse Resp BP Pulse Ox O2 Del Method 98.1 F 78 18 109/70 98 Room Air 06/27/25 08:00 06/27/25 08:00 06/27/25 08:00 06/27/25 08:00 06/27/25 08:00 06/27/25 08:00 Narrative Exam Normal heart rate and rhythm. Lungs clear no wheezes. Abdomen soft nontender. Uterus well involuted. Perineum is healing. No signs of infection. No swelling noted. Small lochia. Uterus well involuted. Negative Homans' sign. 2+ DTRs. Objective Labs 06/26/25 10:07 06/25/25 16:02 Labs: Laboratory Results - last 24 hr 06/26/25 10:07 WBC 21.0 H D RBC 3.79 L Hgb 11.6 L Hct 33.5 L MCV 88 MCH 30.6 MCHC 34.6 RDW Std Deviation 44.9 Plt Count 248 Neut % (Auto) 84 H Lymph % (Auto) 6 L [place] % (Auto) 10 Eos % (Auto) 0 Baso % (Auto) 0 Neut # (Auto) 17.5 H Lymph # (Auto) 1.2 [place] # (Auto) 2.1 H Eos # (Auto) 0.0 Baso # (Auto) 0.0 Immature Gran # (Auto) 0.15 H Absolute Nucleated RBC 0.00 Immature Gran % 1 H Nucleated RBC % 0 Assessment & Plan Problem List (1) Advanced maternal age (AMA), 40 years or greater: Status: Acute (2) Post-dates : Status: Acute (3) Supervision of high risk in third trimester: Status: Acute Assessment Comment Assessment comment: 24 hr pp Plan Comment Plan Comment: Stop IV antibiotics. Discussed MARY care and comfort measures for second-degree perineal laceration. No sex. Discussed danger signs symptoms and ER precautions. And I discussed signs symptoms of infection. Increase fluids. Rest. Return in 3 weeks visit Time Spent With Patient Time: Total time spent is greater than 50% in coordination of care (as documented) at patient's floor/unit and/or counseling patient:
--- NOTE | 2025-06-27 09:48 | PD.LDDS ---
DS: Providers Provider Date of admission: 06/24/25 16:36 Primary care physician: Physician No Primary/Family Admitting Provider: Sara Frey MD ([facility]) Attending Provider on Admission: Sandra Carson CNM Consults: 06/26/25 03:22 Referral Routine Comment: Attending Provider on DC: Sandra Carson CNM Discharging Provider: Sandra Carson CNM DS: Diagnosis Problem List Completed Was Problem List Reviewed/Reconciled?: Yes Summary/Hosp Course Brief History: The patient is a 39-year-old -0-0-2 who I discharged the other day after an unsuccessful induction of labor for postdates. Today the patient presented for nonstress test. She is currently 40 5/7 weeks EGA. Thebaby had a wandering baseline. The baby appeared to be in the 150s with some variable decelerations down to the 120s. Excellent variability. Overall a category 1 tracing however as the patient is post-dates and having some variables the decision was made to keep the patient. Her cervical exam is largely unchanged at 1/60/-3/posterior with a ballotable presentation. Vertex .SYLVAIN is 18. The patient was offered a primary versus another induction of labor and she opts for an induction of labor. She declined Cervidil and would like to try Cytotec. She is aware the last EFW on the baby was about 4000 g corresponding to approximately 8 pounds 14 ounces. She states her largest baby was about 7 pounds 8 ounces. Peripartum Data Delivery Method: Normal Vaginal Delivery Episiotomy Description: None Laceration Description: yes (2nd perineal) complications: none Time Spent with Patient Time attestation: Total time spent providing and/or coordinating discharge services: Exam Vital Signs Temp Pulse Resp BP Pulse Ox O2 Del Method 98.1 F 78 18 109/70 98 Room Air 06/27/25 08:00 06/27/25 08:00 06/27/25 08:00 06/27/25 08:00 06/27/25 08:00 06/27/25 08:00 Discharge Plan Plan Patient Disposition: HOME (Self Care) Patient condition on transfer: Stable Prescriptions/Referrals Prescriptions/Med Rec: New ibuprofen 600 mg tablet 600 mg PO Q8H PRN (Reason: pain) Qty: 60 1RF docusate sodium [Colace] 100 mg capsule 100 mg PO BID Qty: 14 1RF No Action docusate sodium [Colace] 100 mg capsule 100 mg PO BID Qty: 60 0RF ferrous sulfate [Feosol] 325 mg (65 mg iron) tablet 325 mg PO QDAY Qty: 30 0RF PNV no.95-ferrous fumarate-FA [] 28 mg iron- 800 mcg tablet 1 tab PO QDAY Referrals: No Primary/Family,Physician [Primary Care Provider] Patient/Caregiver Discharge Instructions Meds to Beds: No Discharge Activity: resume usual activities Print Language: Yemeni Activity Restrictions/Additional Instructions: Discharge home with ibuprofen 600 every 8 hours. I gave patient also Colace 100 p.o. twice daily x 7. Increase fluids. Discussed conservative comfort measures for perineal laceration no sex please. Increase rest. Discussed danger signs symptoms and signs of infection. Continue vitamins and iron. And I discussed ER precautions and return in 3 weeks visit Stand Alone Forms: Norma Award Info., Patient Portal Info Letter Discharge Order Discharge Orders: Discharge (Routine); Ordered 06/27/25 Ordered By: Sandra Carson Planned Discharge Date 06/27/25
[2025-06-27] MEDS: DOCUSATE SOD 100 MG CAPSULE PO (10:01)
[2025-06-27] MEDS: DIPHTH,PERTUSS(ACELL),TET VAC 0.5 ML SYR- ADULT IMi (10:55)
== END 2025-06-27 12:10 | disposition home or self-care (01) | DRG 807 ==
LOC: S4S1 17:33 → S4SX 17:33 → S4NX 06-26 04:40
PROVIDERS: Obstetrics & Gynecology; Admitting Provider Obstetrics & Gynecology; Referring Provider Obstetrics & Gynecology; Visit Provider Advanced Practice Midwife
DX: O48.0 Post-term pregnancy (principal); Z37.0 Single live birth; Z3A.40 40 weeks gestation of pregnancy; O70.0 First degree perineal laceration during delivery; Z88.5 Allergy status to narcotic agent; Z88.8 Allergy status to other drugs, medicaments and biological substances
CPT/HCPCS: 36415; 76815; 80053; 81001; 82570; 84156; 84550; 85025; 85384; 85610; 85730; 86780; 86850; 86900; 86901; 90715; J0131; J0689; J2210; J2590; J2795; J3010; J3490; J7120; S0191; A9270

== ENCOUNTER 2025-07-14 09:44 | Outpatient (AMB) | payer BC, MEDICAID, SELFPAY ==
[2025-07-14 09:52] VITALS: BP 126/82; PULSE 70; RESP 14; TEMP 35.8; O2SAT 98; BMI 26.3
--- NOTE | 2025-07-14 09:52 | AMBOBPPN_ITS ---
Vital Signs 07/14/25 09:52 Height 1.6 m Height Method Stated Weight 67.358 kg Weight Measurement Method Standing Scale BMI 26.3 BP 126/82 Blood Pressure Source Automatic Cuff Blood Pressure Location Left Upper Arm Position Sitting Respiration 14 Pulse 70 Pulse Source Monitor Temp 96.4 F L Temp Source Oral Pulse Oximetry (%) 98 Oxygen Delivery Method Room Air Allergies/Home Meds Allergies & Medications Allergies latex Allergy (Mild, Verified 07/14/25 09:52) Rash clavulanic acid (From Augmentin) Adverse Reaction (Intermediate, Verified 07/14/25 09:52) Nausea hydrocodone (From Vicodin) Adverse Reaction (Intermediate, Verified 07/14/25 09:52) Nausea Medication Reconciliation docusate sodium 100 mg capsule (Colace) 100 mg PO BID #60 caps 04/17/25 [Rx Confirmed 07/14/25] Held on 06/18/25. Instructions: Doctor's Order vit no.95-ferrous fumarate 28 mg-folic acid 800 mcg tablet () 1 tab PO QDAY 04/30/25 [History Confirmed 07/14/25] ferrous sulfate 325 mg (65 mg iron) tablet (Feosol) 325 mg PO QDAY #30 tabs 06/03/25 [Rx Confirmed 07/14/25] docusate sodium 100 mg capsule (Colace) 100 mg PO BID #14 caps 06/27/25 [Rx Confirmed 07/14/25] ibuprofen 600 mg tablet 600 mg PO Q8H PRN pain #60 tabs 06/27/25 [Rx Confirmed 07/14/25] Intake Visit Data Collection New Patient or Established: Established Patient (seen at [facility] within 3 years) Reason for Visit:: 2 WEEKS Seen by Clinical Staff ONLY (RN/MA): No Scaler Packer Required: No Do You Feel Safe at Home: Yes Authorities Contacted: N/A PCP or OBGYN visit in last 3 months: Yes Hx Now: No Are you currently on any form of Control: No Pain Present Currently: Yes Pain Location: Back Pain Scale Used: [place]-Mirza/Numerical Pain scale:: 4 Smoking Status Smoking Status: Never smoker Immunizations Flu Vaccine in the Last 12 Months: Yes Flu Vaccine Exclusion Criteria: Already Received REHAB SPEC: Past Medical History Past Medical History: No Hx Neurological Disorders, No Hx Hypothyroidism, No Hx Hyperthyroidism, No Hx Breast Cancer, Yes Hx Cardiac Disorders, No Hx Hypertension, No Hx Cancer, No Hx Blood Disorders, Yes Hx Anemia, Yes Hx Gastrointestinal Disorders, No Hx Renal Disease, No Hx Diabetes Mellitus Type 1, No Hx Diabetes Mellitus Type 2 and Yes Hx Polycystic Ovarian Syndrome Questionnaires Covid-19 Vaccine Questionnaire Has patient been vacinated for Covid-19 Have you been vacinated for Covid-19: Yes Social History Living Situation History Lives With: Family Housing: House Housing Other:: 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 Tobacco History Smoking Status: Never smoker Second Hand Smoke Exposure: No Alcohol History Alcohol Intake: Never Alcohol Intake Frequency: holidays/special occasions only Domestic Abuse History Do You Feel Safe at Home: Yes EPDS - PP Depression Screening [place] [facility] Depression Screen I have been able to laugh and see the funny side of things: (0) As much as I always could I have looked forward with enjoyment to things: (0) As much as I ever did I have blamed myself unnecessarily when things went wrong: (0) No, never I have been anxious or worried for no good reason: (0) No, not at all I have felt scared or panicky for no very good reason: (0) No, not at all Things have been getting on top of me: (1) No, most of the time I have coped quite well I have been so unhappy that I have had difficulty sleeping: (0) No, not at all I have felt sad or miserable: (0) No, not at all I have been so unhappy that I have been crying: (0) No, never The thought of harming myself has occurred to me: (0) Never EPDS completed yes Care OB Visit Log OB Flowsheet Initial Weight: Not Recorded Date -?-?-?-?-?-?-?-?-?-?-?-?- EGA Weight BP Alb Glu CTX Pres Fundal ht FHR Mov Dilation Station Effacement Hx Notes Visit Note 12/31/24 -?-?-?-?-?-?-?-?-?-?-?-?- 15w 5d 64.07 kg 115/76 145 Patient on light duty. Father baby at bedside. Denies bleeding cramping. Urine protein negative glucose negative 01/28/25 -?-?-?-?-?-?-?-?-?-?-?-?- 19w 5d 68.152 kg 109/68 20 147 142 active Positive movement no bleeding. Patient was in the ER wrist recently about 2 weeks ago with some spotting. They suspected she had a UTI and sent her home on an antibiotic. Her urine culture was negative. 02/06/25 -?-?-?-?-?-?-?-?-?-?-?-?- 21w 0d 68.096 kg 120/78 21 134 active +FM, No VB or LOF. + rash that comes and goes. Extremely itchy 03/19/25 -?-?-?-?-?-?-?-?-?-?-?-?- 26w 6d 71.271 kg 112/71 28 134 active +FM No UCs N o VB Rash is gone, pt has significant pubic bone diastasis, recommended brace. Ordered GCT 04/17/25 -?-?-?-?-?-?-?-?-?-?-?-?- 31w 0d 73.085 kg 108/66 occasional 31 138 active Patient reports good movement no contractions or loss of fluids. She states she feels tired and dizzy. She has occasional headaches. Patient states she does not feel right Sent to OB [facility] [place] [facility] e for further evaluation. 05/06/25 -?-?-?-?-?-?-?-?-?-?-?-?- 33w 5d 74.616 kg 111/70 occasional breech 35 1 45 active Good movement. Went to triage 04/30/2025 rule out labor. fibronectin negative. Unsure whether she wants to go off work. Will write a note for the end of the month. Sign tubal ligation papers in case she needs a . 05/20/25 -?-?-?-?-?-?-?-?-?-?-?-?- 35w 5d 74.503 kg 114/62 occasional unknown 36 156 active 0 -3 Good movement occasional contractions no loss of fluids Was in triage 04/30/2025 fibronectin negative. 05/25/25 -?-?-?-?-?-?-?-?-?-?-?-?- 36w 3d 75.807 kg 113/66 occasional cephalic 36 134 active 1 -3 70 movement no contractions no loss of fluids Patient feels pressure 06/03/25 -?-?-?-?-?-?-?-?-?-?-?-?- 37w 5d 75.523 kg 128/69 occasional cephalic 36 145 active Good movement no contractions positive pressure No loss of fluids. Reports some dysuria. Going to the hospital tomorrow for NST 06/12/25 -?-?-?-?-?-?-?-?-?-?-?-?- 39w 0d 76.827 kg 105/66 occasional cephalic 38 137 active 1 -3 60 Good movement no contractions no loss of fluids Induction of labor 06/19/2025 if no baby. ELVA Calculator Estimated Delivery Date Method Current WG Current Estimate 06/19/25 Ultrasound #1 43w 4d Other Estimates 06/15/25 LMP (Certain) 44w 1d Expected Delivery Route/Plan Anticipate labs drawn at [facility] B+/ antibody negative/ hepatitis B surface antigen negative/ rubella immune /HIV negative. No RPR drawn. No urine culture drawn. No GC chlamydia drawn. Will add these labs. Had normal level [address] Matthew and has follow-up. Specific Issue/Plans AMA, on baby aspirin. Normal NIPT. Will order level 2 ultrasound. Works as a [employer]. On light duty. New father the baby this . Patient has 2 children of her own he has 3 children of his own. Multiple medical allergies Notes Visit Date: 06/12/25 Last Updated by: Sara Frey ([facility])MD GBB with me but I only talk to you I just recheck somebody's got the book okayS- Visit Date: 06/03/25 Last Updated by: Sara Frey ([facility])MD Recommend weight tomorrow NST BPP and urinalysis in triage to check for possible bladder infection. Visit Date: 05/25/25 Last Updated by: Sara Frey ([facility])MD Group B strep negative baby vertex on ultrasound. To L&D for NST for AMA. Authorized for twice weekly NSTs /BPP's Visit Date: 05/20/25 Last Updated by: Sara Frey ([facility])MD Off work 05/27/2025 note given. Group B strep done. Cervix closed thick and high. Unsure what position baby is in. Baby was breech 2 weeks ago. Visit Date: 05/06/25 Last Updated by: Sara Frey ([facility])MD Patient saw Dr. Matthew 05/04/2025 baby was breech. 78th percentile. Abdominal circumference large. Plan will be to repeat an ultrasound in 3 to 4 weeks. Patient signed tubal ligation papers today if she needs a Visit Date: 04/17/25 Last Updated by: Sara Frey ([facility])MD Patient states she was in triage about a week ago she was closed they check her urine and it was negative. She has not gotten that belly band. We did discuss tubal ligation if she needs a and she would like papers to be signed. Visit Date: 03/19/25 Last Updated by: Sara Frey ([facility])MD Had Level II US with Dr Kahn Visit Date: 02/06/25 Last Updated by: Sara Frey ([facility])MD No signs of PUPPS or a significant rash. Benadryl. Zyrtec. Consider a medrol dose pack. Check LFTS and Bile acids. Discussed cholestasis. Pt extremely anxious Visit Date: 01/28/25 Last Updated by: Sara Frey ([facility])MD Patient was in the ER 2 weeks ago. Some spotting. They diagnosed her with a bladder infection and she is finishing her antibiotics. Of note her urine culture was negative. She reports some pain in her abdomen. 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 Visit Date: 12/31/24 Last Updated by: Sara Frey ([facility])MD Patient employed as a [employer]. Blink 06/18/2024. She is a 39-year-old -0-0-2. Her son Hank is 8, her daughter Snehal is 9. The father the baby is a industrial relations officer and has 3 children of his own. HPI Interval History: 39-year-old 3 para 3 for 2-week . Patient had a vaginal June 26, 2025. Her baby weighed 9 pounds. She had a baby boy. She is breast-feeding. She has help at home her parents help for her in her house and however her went back to work. Patient continues to complain backache and neck ache. She also complains of feeling bloated and still some abdominal and perineal discomfort. Her last child was 9 years prior. Patient plans to get tubal ligation. She does not want any more children. Patient also claims that when she is holding her baby on her chest sometimes she feels like she cannot catch her breath. And she has had that for the last 2 weeks.. c/o overwhelming tiredeness Was or delivery considered high risk: Yes Delivery type: vaginal Was labor induced: yes and medically indicated Gestational age at delivery (weeks): 41 Delivery date: 06/26/25 Delivering provider: allyson Casron Delivery complications: No Delivery complications comment: Patient had epidural anesthesia needed to be poked for epidural several times Is patient infant: Yes Is patient sexually active: No Contraception planned: Tubal ligation Review of Systems Review of Systems ROS limited to current REHAB SPEC complaints: Yes Exam Narrative Physical exam: Normal heart rate and rhythm. Lungs clear no wheezes. Abdomen is soft n ontender. Uterus well involuted. Perineum is intact no lacerations. No swelling. Small lochia. Negative Homans' sign. 2+ DTRs. No edema no swelling. Breasts are soft Office Procedures [facility] LOC & Office Proc's Nursing/Assessment Patient Status: Established Patient [facility] Nursing Assessment: Medication Reconciliation, Update PMH in EMR and Vital Signs [facility] Clinic Coordination of Care: Complex Care and Chronic Disease 1-5, C onsent,records obtained, informed consent, Education Simp Pt/Fam, Lab and Imaging orders, Results/Orders obtained and Staff clarify orders Established Patient Charge Established Patient Point Assignment: 105 Established Patient Point Charge: EP Level 3 (80-115) Assessment & Plan Diagnosis / Problem List (1) 2 weeks follow-up: Status: Acute Plan Discussed comfort measures for backache and neck pain. She is wearing a maternity girdle to help give support. I advised her to try and slow down she has been out about a lot taking care of her other children and going to school of mines and other things. I extended her disability to August 28, 2025. I asked her to have her parents and watch the little baby while she sleeps because she is very tired. And to continue her prenatals. Schedule with OB in 3 weeks for tubal ligation. The patient will return in 3 weeks for follow-up Care Reviewed delivery summary and any complications: Yes Uterus involuted to: 3 below, scant lochia, no laceration Perineal / incision healing noted: Yes Screened for depression: Yes Depression counseling provided: No Discussed family planning & contraception: Yes Contraception planned: Tubal ligation Counseling on safe resumption of sexual activity: Yes Counseling on gradual excercise: Yes Discussed and concerns (describe), provided support: Yes Referred to commercial lawn specialist: No Counseled on good nutrition, hydration, and self care: Yes Reviewed vaccine status: Yes Chronic & current problems reconciled on problem list: Yes care discussed; questions answered: feeding Follow up: routine/prn Additional counseling & anticipatory guidance provided: Continue to wear maternity support. Continue prenatals. Rest when she can and she should ask family members to help with the baby so that she can sleep. Schedule with OB in 4 weeks to schedule tubal
== END 2025-07-14 10:39 | disposition home or self-care (01) ==
LOC: HODSOBC 09:44
PROVIDERS: Supervising Provider Advanced Practice Midwife; Visit Provider Advanced Practice Midwife
DX: Z39.2 Encounter for routine postpartum follow-up (principal); Z39.1 Encounter for care and examination of lactating mother; Z91.040 Latex allergy status; Z88.1 Allergy status to other antibiotic agents; Z88.5 Allergy status to narcotic agent
CPT/HCPCS: 99213; G0463

== ENCOUNTER 2025-08-25 09:35 | Outpatient (AMB) | payer BC, MEDICAID, SELFPAY ==
[2025-08-25 09:51] VITALS: BP 130/84; PULSE 80; RESP 18; TEMP 36.2; O2SAT 98; BMI 25.7
--- NOTE | 2025-08-25 09:51 | GYNCLNT_ITS ---
Vital Signs 08/25/25 09:51 Height 1.6 m Height Method Stated Weight 65.771 kg Weight Measurement Method Standing Scale BMI 25.7 BP 130/84 Blood Pressure Source Automatic Cuff Blood Pressure Location Left Upper Arm Position Sitting Respiration 18 Pulse 80 Pulse Source Monitor Temp 97.2 F Temp Source Oral Pulse Oximetry (%) 98 Oxygen Delivery Method Room Air Allergies/Home Meds Allergies & Medications Allergies latex Allergy (Mild, Verified 08/25/25 09:53) Rash clavulanic acid (From Augmentin) Adverse Reaction (Intermediate, Verified 08/25/25 09:53) Nausea hydrocodone (From Vicodin) Adverse Reaction (Intermediate, Verified 08/25/25 09:53) Nausea Medication Reconciliation docusate sodium 100 mg capsule (Colace) 100 mg PO BID #60 caps 04/17/25 [Rx Confirmed 08/25/25] Held on 06/18/25. Instructions: Doctor's Order vit no.95-ferrous fumarate 28 mg-folic acid 800 mcg tablet () 1 tab PO QDAY 04/30/25 [History Confirmed 08/25/25] ferrous sulfate 325 mg (65 mg iron) tablet (Feosol) 325 mg PO QDAY #30 tabs 06/03/25 [Rx Confirmed 08/25/25] docusate sodium 100 mg capsule (Colace) 100 mg PO BID #14 caps 06/27/25 [Rx Confirmed 08/25/25] ibuprofen 600 mg tablet 600 mg PO Q8H PRN pain #60 tabs 06/27/25 [Rx Confirmed 08/25/25] Intake Visit Data Collection New Patient or Established: Established Patient (seen at [facility] within 3 years) Reason for Visit:: PP / TUBAL CONSENT Seen by Clinical Staff ONLY (RN/MA): No Machine I Coremaker Required: No Do You Feel Safe at Home: Yes Authorities Contacted: N/A PCP or OBGYN visit in last 3 months: Yes Date of Last PCP or OBGYN visit: 07/14/25 Hx Now: No Are you currently on any form of Control: No Pain Present Currently: No Pain Scale Used: [place]-Mirza/Numerical Pain scale:: 0 Smoking Status Smoking Status: Never smoker Immunizations Flu Vaccine in the Last 12 Months: No Flu Vaccine Exclusion Criteria: 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 by 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 History Menstrual regularity: regular Flow: normal Monthly: Yes Age at menarche: 10 Menopausal: No Currently sexually active: Yes END PACKER: Past Medical History Past Medical History: No Hx Neurological Disorders, No Hx Hypothyroidism, No Hx Hyperthyroidism, No Hx Breast Cancer, Yes Hx Cardiac Disorders, No Hx Hypertensi on, No Hx Cancer, No Hx Blood Disorders, Yes Hx Anemia, Yes Hx Gastrointestinal Disorders, No Hx Renal Disease, No Hx Diabetes Mellitus Type 1, No Hx Diabetes Mellitus Type 2 and Yes Hx Polycystic Ovarian Syndrome Questionnaires Covid-19 Vaccine Questionnaire Has patient been vacinated for Covid-19 Have you been vacinated for Covid-19: Yes PHQ-9 PHQ-2 Over the last 2 weeks, how often have you been bothered by any of the following problems? 1. Little interest or pleasure in doing things: not at all 2. Feeling down, depressed, or hopeless: not at all Total score: 0 PHQ-9 3. Trouble falling or staying asleep, or sleeping too much: Not at all 4. Feeling tired or having little energy: Not at all 5. Poor appetite or overeating: Not at all 6. Feeling bad about yourself - or that you are a failure or have let yourself or your family down: Not at all 7. Trouble concentrating on things, such as reading the newspaper or watching television: Not at all 8. Moving or speaking so slowly that other people could have noticed? - Or the opposite - being so fidgety or restless that you have been moving around a lot more than usual: not at all 9. Thoughts that you would be better off or of hurting yourself in some way: Not at all Total score: 0 If you checked off any problems, how difficult have these problems made it for you to do your work, take care of things at home, or get along with other people?: not difficult at all Source: Developed by Drs. Oliver Arce, Jo Ann Arriaga, Elijah Johnson and colleagues, with an educational johny from [employer]. 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 FOB, a CO, who has 3 kids Tobacco History Smoking Status: Never smoker Second Hand Smoke Exposure: No Alcohol History Alcohol Intake: Never Alcohol Intake Frequency: holidays/special occasions only Domestic Abuse History Do You Feel Safe at Home: Yes History of Present Illness HPI Narrative Desires tubal ligation, persistent back, neck, and chest pain since epidural during delivery on June 26, headaches, difficulty breathing with chest pressure, depression Leslee Cuellar is a patient who delivered on June 26 and presents for tubal ligation consultation and evaluation of persistent post-epidural complications. The patient reports ongoing pain in her back, neck, and chest that she attributes to her epidural anesthesia during delivery. She describes being unable to lay flat and requires pillows for positioning, with inability to turn in certain directions. She experiences chest pressure and pain when placing the baby on her chest for extended periods, along with difficulty breathing that requires gasping for breath, which frightens her. The pain is localized to her left side at the bra line where she reports the epidural was administered, and worsens with pressure. She also reports frequent headaches associated with these symptoms. The patient is experiencing relationship stress as she and her baby's father are , though he provides help when possible since he is not living with them. She requested a referral for depression management. She has an established primary care provider, Dr. Laura Phillips, and reports that the baby is doing well with division merchandise manager Dr. Thomas. The patient had recent sexual intercourse within the past week and underwent testing during this visit. Obstetric History: - Recent delivery: June 26 (approximately 2 months ) - Patient is requesting tubal ligation Social History: - Relationship Status: from baby's father - Living Situation: Lives separately from baby's father, who helps when he can but is not present all the time - Family Structure: Has a baby Exam General General Appearance: alert, in no apparent distress and healthy appearing Head Head exam: atraumatic Neck Neck exam: Present normal inspection and trachea midline Chest Chest inspection: Present normal inspection and symmetric chest wall rise External exam: Present normal external exam; Absent tenderness Neuro Neurological exam: Present oriented X3 Psych Psychiatric exam: Present normal affect and normal mood Office Procedures OBC Clinic LOC & Office Proc's Nursing/Assessment Patient Status: Established Patient OB Clinic Nursing Assessment: Medication Reconciliation, Update PMH in EMR and Vital Signs OB Clinic Coordination of Care: Consent,records obtained, informed consent, Education Simp Pt/Fam, Lab and Imaging orders, Results/Orders obtained and Staff clarify orders Established Patient Charge Established Patient Point Assignment: 80 Established Patient Point Charge: Level 3 (80-115) Assessment & Plan Diagnosis / Problem List (1) Anxiety: Status: Acute (2) Encounter for sterilization: Status: Acute Plan Post-epidural complications Assessment: Patient reports persistent chest pain, breathing difficulties, headaches, and left-sided spinal pain at the epidural insertion site since delivery on June 26. Symptoms include inability to lie flat, chest pressure when holding baby, gasping for breath, and pain at bra line level on left side only. Post-epidural headaches typically resolve within 2 weeks but persistence beyond this timeframe requires comprehensive workup to rule out serious complications. Plan: - Order CT scan - Order chest X-ray - Order spinal imaging - Refer to payroll specialist for evaluation outside obstetric specialty - Refer to primary care physician for neurologic follow-up - Order laboratory workup including general labs to check for anemia - Order urine culture to rule out infection - Recommend Tylenol with caffeine for headache management, safe for - Caffeine intake limited to 100 milligrams at a time - All referrals marked as urgent for expedited scheduling Tubal ligation request Assessment: Patient desires permanent sterilization following recent delivery. Consent form already signed. However, current post-epidural complications require resolution before proceeding with elective surgery to avoid confounding anesthetic complications and to ensure patient safety. Plan: - Request insurance authorization for tubal ligation procedure - Defer surgery until post-epidural complications are resolved - Avoid anesthesia until neurologic issues are addressed - Target completion of workup within one month - Extend maternity leave up to 6 months from delivery date due to genuine medical reasons - Withhold control until medical workup completed due to potential risks Depression screening request Assessment: Patient requests referral for depression evaluation. Contributing factors include separation from baby's father and lack of consistent support. Plan: - Provide referral for depression evaluation and treatment test Assessment: test performed and negative. Patient had intercourse within the past week, requiring repeat testing due to potential window period for detection. Plan: - Repeat home test in one week due to recent intercourse
== END 2025-08-25 10:38 | disposition home or self-care (01) ==
LOC: HODSOBC 09:35
PROVIDERS: Supervising Provider Obstetrics & Gynecology; Visit Provider Obstetrics & Gynecology
DX: Z30.2 Encounter for sterilization (principal); F41.9 Anxiety disorder, unspecified; T88.59XA Other complications of anesthesia, initial encounter; G44.40 Drug-induced headache, not elsewhere classified, not intractable; R07.89 Other chest pain; M54.89 Other dorsalgia; M54.2 Cervicalgia; T41.3X5A Adverse effect of local anesthetics, initial encounter; Z88.5 Allergy status to narcotic agent; Z88.1 Allergy status to other antibiotic agents; Z91.040 Latex allergy status; Y84.8 Other medical procedures as the cause of abnormal reaction of the patient, or of later complication, without mention of misadventure at the time of the procedure
CPT/HCPCS: 99213; G0463

== ENCOUNTER → 2025-08-25 | Outpatient (CLI) | payer BC, SELFPAY ==
[2025-08-25 12:00] LABS: Basophils # (Auto) 0.1 Thou/mm3 (0.0-0.2); Basophils % (Auto) 1 % (0-2.5); Eosinophils # (Auto) 0.1 Thou/mm3 (0.0-0.5); Eosinophils % (Auto) 1 % (0-10); Hematocrit 43.3 % (36.0-46.0); Hemoglobin 14.5 g/dL (12.0-16.0); Immature Granulocytes Auto 0.02 Thou/mm3 (0.00-0.00); Lymphocytes # (Auto) 2.0 Thou/mm3 (1.0-4.8); Lymphocytes % (Auto) 25 % (10-50); Mean Corpuscular HGB Conc 33.5 g/dl (31.0-37.0); Mean Corpuscular Hemoglobin 29.2 pg (25.0-35.0); Mean Corpuscular Volume 87 fL (80-100); Monocytes # (Auto) 0.7 Thou/mm3 (0.0-0.8); Monocytes % (Auto) 9 % (0-12); Neutrophils # (Auto) 5.2 Thou/mm3 (1.8-7.7); Neutrophils % (Auto) 65 % (37-80); Nucleated Red Blood Cell # 0.00 Thou/mm3 (0.00-0.00); Nucleated Red Blood Cell % 0 /100 WBC (0); Platelet Count 356 Thou/mm3 (140-440); RDW Standard Deviation 40.0 fL (36.4-46.3); Red Blood Count 4.96 Miln/mm3 (4.00-5.20); White Blood Count 8.0 Thou/mm3 (3.6-11.0)
[2025-08-25 12:16] LABS: Alanine Aminotransferase 62 U/L (10-49); Albumin, Serum 4.5 gm/dL (3.5-5.0); Albumin/Globulin Ratio 1.4 (1.2-2.2); Alkaline Phosphatase 149 U/L (46-116); Anion Gap 10 (7-16); Aspartate Amino Transferase 41 U/L (0-34); BUN/Creatinine Ratio 18 Ratio (12-20); Bilirubin,Total 1.4 mg/dL (0.3-1.2); Blood Urea Nitrogen 11 mg/dL (9-23); Calcium 10.3 mg/dL (8.3-10.6); Calcium (Corrected) 10.3 mg/dL (8.5-10.1); Carbon Dioxide 28.2 mMol/L (20.0-31.0); Chloride 104 mMol/L (98-107); Creatinine (Component) 0.6 mg/dL (0.6-1.3); Globulin 3.2 gm/dL (2.3-3.5); Glucose 86 mg/dL (74-106); Osmolality,Calculated 281 (275-295); Potassium 4.3 mMol/L (3.4-5.1); Sodium 142 mMol/L (136-145); Thyroid Stimulating Hormone 1.72 uIU/mL (0.55-4.78); Total Protein 7.7 gm/dL (5.7-8.2); eGFR > 60 See Note
== END | disposition home or self-care (01) ==
LOC: COPL 11:08
PROVIDERS: PCP Family Medicine; Referring Provider Obstetrics & Gynecology; Visit Provider Obstetrics & Gynecology
DX: O09.91 Supervision of high risk pregnancy, unspecified, first trimester (principal); O89.4 Spinal and epidural anesthesia-induced headache during the puerperium
CPT/HCPCS: 36415; 80053; 84443; 85025; 87086